=== PATIENT | female | born 1940 | race Caucasian/White ===

== ENCOUNTER 2017-12-06 20:31 | Emergency (ER) | payer OTHER, SELFPAY ==
[2017-12-06 20:36] VITALS: BP 128/75; PULSE 74; RESP 20; TEMP 36.6; O2SAT 94; BMI 23.3
--- NOTE | 2017-12-06 20:47 | DI.RAD.S_ITS ---
PROCEDURE: XR KNEE RT 3V INDICATIONS: fall TECHNIQUE: 3 views of the knee were acquired. COMPARISON: None. FINDINGS: Bones: There is a comminuted patellar fracture. No other fracture or dislocation. Soft tissues: There is a small joint effusion incomplete characterized on this crosstable view. IMPRESSION: Displaced patellar fracture and joint effusion. Dictated by: Madeline Markham M.D. on 12/06/2017 at 21:25 Approved by: Madeline Markham M.D. on 12/06/2017 at 21:26
--- NOTE | 2017-12-06 21:04 | ED.LOWEXIN ---
HPI - Extremity Injury (Lower) <MARCUS Higgins - Last Filed: 12/06/17 23:24> General Chief Complaint: Extremity Injury, Lower Stated Complaint: multiple falls, right knee swollen and hurts Time Seen by Provider: 12/06/17 20:58 Source: patient Mode of arrival: wheelchair Limitations: no limitations History of Present Illness HPI Narrative: Patient presents with chief complaint of right knee pain after multiple falls the past 2 days. She had a witnessed fall today outside on concrete where she landed on her right knee cap. She did have an unwitnessed fall yesterday in her apartment. Patient has dementia and lives at [facility], where she has help. She denies hitting her head, neck, back. She denies series pain of her right knee. She does complain of bruising. And pain with ambulation. She denies any chest pain, shortness of breath, numbness, tingling. She does state that she tripped and fell both times. Denies any syncope. Related Data Home Medications Medication Instructions Recorded Confirmed alendronate [Fosamax] 70 mg PO QWEEK #0 05/26/16 citalopram 20 mg PO QDAY #0 05/26/16 magnesium hydroxide [Milk Of 30 ml PO #0 05/26/16 Magnesia Concentrated] multivitamin [Multiple Vitamins] 1 tab PO QDAY #0 05/26/16 simvastatin 20 mg PO QDAY #0 05/26/16 alum-mag hydroxide-simeth [Maalox 30 ml PO PRN PRN #0 08/15/16 Maximum Strength] cyanocobalamin (vitamin B-12) 1,000 mcg PO QDAY #0 08/15/16 folic acid 1 mg PO QDAY #0 08/15/16 memantine 10 mg PO BID #0 08/15/16 Previous Rx's Medication Instructions Recorded azithromycin [Zithromax] 250 - 500 mg PO QDAY #6 tab 08/15/16 Allergies Allergy/AdvReac Type Severity Reaction Status Date / Time atorvastatin [From LIPITOR] Allergy Unknown Verified 12/06/17 20:43 donepezil [DONEPEZIL] Allergy Unknown Verified 12/06/17 20:43 HYDROCHLORIC ACID Allergy Unknown Uncoded 10/14/17 11:55 Review of Systems <MARCUS Higgins - Last Filed: 12/06/17 23:24> Review of Systems GENERAL: Denies chills, fatigue, malaise, fever, sweats. HEENT: Denies sinus pain, ear pain, sore throat, difficulty swallowing, dizziness. RESPIRATORY: Denies dyspnea, cough, wheezing, hemoptysis, sputum. CARDIOVASCULAR: Denies chest pain, palpitations, orthopnea, edema, GASTROINTESTINAL: Denies nausea, vomiting, abdominal pain, diarrhea, constipation, melena. : Denies dysuria, frequency, incontinence, hematuria, urinary retention. MUSCULOSKELETAL: See HPI SKIN: See HPI NEUROLOGIC: Denies weakness, headache, numbness, change in speech, confusion, seizures, incoordination. PSYCHIATRIC: No concerning psychosocial issues. 12 point review of systems is negative except for those stated above Exam <Esperanza Frandy, [employer] - Last Filed: 12/06/17 23:24> Narrative Exam Narrative: GENERAL: This is a well-nourished, well-developed patient, in no distress with friend at bedside HEAD: Atraumatic. Normocephalic. No temporal or scalp tenderness. EYES: Pupils round and reactive. Extraocular motions intact. No scleral icterus. No injection or drainage. Noted to have 3 mm left pupil on 2 mm right pupil, though they are round and reactive bilaterally. ENT: Nose without bleeding, purulent drainage or septal hematoma. Throat without erythema, tonsillar hypertrophy or exudate. Uvula midline. Airway patent. NECK: Trachea midline. No JVD or lymphadenopathy. Supple, nontender, no meningeal signs. CARDIOVASCULAR: Regular rate and rhythm without murmurs, gallops, or rubs. RESPIRATORY: Clear to auscultation. Breath sounds equal bilaterally. No wheezes, rales, or rhonchi. GASTROINTESTINAL: Abdomen soft, non-tender, nondistended. No hepato-splenomegaly, or palpable masses. No guarding. EXTREMITIES: Pain to palpation of right knee especially patellar region. Decreased range of motion is patient has pain on movement. BACK: Nontender without deformity or crepitance. No flank tenderness. NEURO: Alert oriented x2. Patient believes that is 1950. SKIN: Ecchymosis noted right patellar region. Skin is intact. Initial Vital Signs Initial Vital Signs: Vital Signs Temperature 97.8 F 12/06/17 20:36 Pulse Rate 74 06/03/18 20:36 Respiratory Rate 20 12/06/17 20:36 Blood Pressure 128/75 H 12/06/17 20:36 Pulse Oximetry 94 12/06/17 20:36 <Matthew Roberts DO - Last Filed: 12/07/17 04:26> Initial Vital Signs Initial Vital Signs: Vital Signs Temperature 97.8 F 12/06/17 20:36 Pulse Rate 74 12/06/17 20:36 Respiratory Rate 20 12/06/17 20:36 Blood Pressure 128/75 H 12/06/17 20:36 Pulse Oximetry 94 12/06/17 20:36 Procedures <MARCUS Higgins - Last Filed: 12/06/17 23:24> Orthopedic Splinting/Casting Injury #1: Side: right Lower Extremity Injury Location: knee Lower Extremity Immobilizer: knee immobilizer Other Orthopedic Equipment: walker Additional Comments: Pulse motor and sensory intact before and after knee immobilizer application. Course <MARCUS Higgins - Last Filed: 12/06/17 23:24> Hospital Course: Patient presented with chief complaint of knee pain. However given her unequal pupils on exam as well as unwitnessed fall, a head CT was also obtained. I checked on her multiple times throughout her stay. She passed her ambulation trial at the end of her emergency department stay. She denied severe pain throughout. Patient and her prior trade mark attorney did not have any questions or concerns upon discharge. Orders Ordered: ED Orders 12/06/17 20:47 XR knee RT 3V Stat 12/06/17 21:20 CT head/brain wo con Stat Consultations Consultation #1: Dr Moore viewed x-rays and suggested a knee immobilizer. Discussed careful follow-up as well as [facility]. Vital Signs - 8 hr 12/06/17 20:36 12/06/17 22:15 Temperature 97.8 F Pulse Rate 74 82 Respiratory Rate 20 16 Blood Pressure 128/75 H Blood Pressure [Right Arm] 137/85 H Pulse Oximetry 94 97 <Matthew Roberts DO - Last Filed: 12/07/17 04:26> Orders Ordered: ED Orders 12/06/17 20:47 XR knee RT 3V Stat 12/06/17 21:20 CT head/brain wo con Stat Vital Signs - 8 hr 06/03/18 20:36 12/06/17 22:15 Temperature 97.8 F Pulse Rate 74 82 Respiratory Rate 20 16 Blood Pressure 128/75 H Blood Pressure [Right Arm] 137/85 H Pulse Oximetry 94 97 MDM - Extremity Injury (Lower) <MARCUS Higgins - Last Filed: 12/06/17 23:24> Imaging Data right knee: Radiologist's impression: [address] [address] XRay Report Signed Patient: Tabatha Mondragon MR#: [id number] : 1940 Acct:[id number] Age/Sex: 77 / F Date of Service: 12/06/17 Loc: ED Accession Number: [id number] Procedure: XR knee RT 3V Ordering Provider: Matthew Roberts D.O. PROCEDURE: XR KNEE RT 3V INDICATIONS: fall TECHNIQUE: 3 views of the knee were acquired. COMPARISON: None. FINDINGS: Bones: There is a comminuted patellar fracture. No other fracture or dislocation. Soft tissues: There is a small joint effusion incomplete characterized on this crosstable view. IMPRESSION: Displaced patellar fracture and joint effusion. Dictated by: Madeline Markham M.D. on 12/06/2017 at 21:25 Approved by: Madelien Markham M.D. on 12/06/2017 at 21:26 CT scan - head: Radiologist's impression: [address] [address] [address] Scan Report Signed Patient: Tabatha Mondragon MR#: [id number] : 1940 Acct:[id number] Age/Sex: 77 / F Date of Service: 12/06/17 Loc: ED Accession Number: [id number] Procedure: CT head/brain wo con Ordering Provider: Esperanza Wise PROCEDURE: CT HEAD/BRAIN WO CON INDICATIONS: unwitnessed fall, unequal pupils TECHNIQUE: Noncontrast 4.5 mm thick angled axial sections acquired from the foramen magnum to the vertex, with coronal and sagittal reformats. For radiation dose reduction, the following was used: automated exposure control, adjustment of mA and/or kV according to patient size. COMPARISON: [facility], CT, CT BRAIN WO CON, 08/13/2016, 2:38. FINDINGS: Image quality: Excellent. CSF spaces: Basal cisterns are patent. No extra-axial fluid collections. The ventricles are symmetric in size and shape. Brain: No intracranial bleeds or masses. There is marked cerebral volume loss for age, with resultant ventricular and sulcal prominence. There are extensive periventricular and deep white matter chronic small vessel ischemic changes. There is intracranial internal carotid artery atherosclerosis. Skull and face: Calvarium and visualized facial bones appear intact, without suspicious lesions. Sinuses: Visualized sinuses and mastoids are clear. IMPRESSION: 1. No acute intracranial findings. 2. Extensive findings likely associated with chronic microvascular ischemic changes. Dictated by: Madeline Markham M.D. on 12/06/2017 at 21:42 Approved by: Madeline Markham M.D. on 12/06/2017 at 21:44 MDM Narrative Medical decision making narrative: Patient's x-ray was concerning for comminuted patellar fracture on her right side. After discussion with Ortho, it was decided to put her in a knee immobilizer as well as a walker. She has follow-up instructions to follow up with her PCP as well as orthopedics if needed. We discussed monitoring for circulation in her foot. Patient and power of trade mark attorney did not have any questions or concerns upon discharge. Discharge Plan Departure Patient Disposition: Home, Self-Care Clinical Impression: Right patella fracture Discharge Date/Time: 12/06/17 22:36 Interventions: ED Discharge Assessment Last Done: 12/06/17 22:35 Instructions: DI for Patella Fracture, How To Perform RICE (Rest, Ice, Compress, Elevate), How to Prevent Falls, How to Use a Knee Immobilizer Activity Restrictions/Additional Instructions: Unfortunately you broke your right knee cap. I would like you to keep the knee immobilizer on. I would like you to rest, elevate, use [id number] pain medication as needed, use ice. I would like you to monitor for circulation of your foot. I would like you to follow up with her primary care provider and [facility]. I would like you to be careful that you do not fall at home. I given you instructions on reduction of falls at home. Prescriptions: No Action alendronate [Fosamax] 70 MG tablet 70 mg PO QWEEK Qty: 0 RF: 0 multivitamin [Multiple Vitamins] 1 EACH tablet 1 tab PO QDAY Qty: 0 RF: 0 citalopram 20 MG tablet 20 mg PO QDAY Qty: 0 RF: 0 simvastatin 20 MG tablet 20 mg PO QDAY Qty: 0 RF: 0 magnesium hydroxide [Milk Of Magnesia Concentrated] 2,400 MG/10 ML suspension 30 ml PO Qty: 0 RF: 0 cyanocobalamin (vitamin B-12) 1,000 MCG tablet extended release 1,000 mcg PO QDAY Qty: 0 RF: 0 folic acid 1 MG tablet 1 mg PO QDAY Qty: 0 RF: 0 memantine 10 MG tablet 10 mg PO BID Qty: 0 RF: 0 alum-mag hydroxide-simeth [Maalox Maximum Strength] 355 ML suspension 30 ml PO PRN PRNQty: 0 RF: 0 azithromycin [Zithromax] 250 MG tablet 250 - 500 mg PO QDAY Qty: 6 RF: 0 Referrals: [facility] [Provider Group] <Matthew Roberts DO - Last Filed: 12/07/17 04:26> Cosign ED Attending Eldaature Attestation: I was immediately available in the department for consultation. Documentation has been reviewed. I agree with assessment and plan.
--- NOTE | 2017-12-06 21:20 | DI.CT.S_ITS ---
PROCEDURE: CT HEAD/BRAIN WO CON INDICATIONS: unwitnessed fall, unequal pupils TECHNIQUE: Noncontrast 4.5 mm thick angled axial sections acquired from the foramen magnum to the vertex, with coronal and sagittal reformats. For radiation dose reduction, the following was used: automated exposure control, adjustment of mA and/or kV according to patient size. COMPARISON: [facility], CT, CT BRAIN WO CON, 08/13/2016, 2:38. FINDINGS: Image quality: Excellent. CSF spaces: Basal cisterns are patent. No extra-axial fluid collections. The ventricles are symmetric in size and shape. Brain: No intracranial bleeds or masses. There is marked cerebral volume loss for age, with resultant ventricular and sulcal prominence. There are extensive periventricular and deep white matter chronic small vessel ischemic changes. There is intracranial internal carotid artery atherosclerosis. Skull and face: Calvarium and visualized facial bones appear intact, without suspicious lesions. Sinuses: Visualized sinuses and mastoids are clear. IMPRESSION: 1. No acute intracranial findings. 2. Extensive findings likely associated with chronic microvascular ischemic changes. Dictated by: Madeline Markham M.D. on 12/06/2017 at 21:42 Approved by: Madeline Markham M.D. on 12/06/2017 at 21:44
--- NOTE | 2017-12-06 22:10 | PC.NURSE ---
Pt ambulated in hallway with right knee immobilizer and walker with steady gait. Pt states she wants to go home. Frandy helm.
[2017-12-06 22:15] VITALS: BP 137/85; PULSE 82; RESP 16; O2SAT 97
--- NOTE | 2017-12-06 23:24 | ED_ITS ---
HPI - Extremity Injury (Lower) <MARCUS Higgins - Last Filed: 12/06/17 23:24> General Chief Complaint: Extremity Injury, Lower Stated Complaint: multiple falls, right knee swollen and hurts Time Seen by Provider: 12/06/17 20:58 Source: patient Mode of arrival: wheelchair Limitations: no limitations History of Present Illness HPI Narrative: Patient presents with chief complaint of right knee pain after multiple falls the past 2 days. She had a witnessed fall today outside on concrete where she landed on her right knee cap. She did have an unwitnessed fall yesterday in her apartment. Patient has dementia and lives at [facility], where she has help. She denies hitting her head, neck, back. She denies series pain of her right knee. She does complain of bruising. And pain with ambulation. She denies any chest pain, shortness of breath, numbness , tingling. She does state that she tripped and fell both times. Denies any syncope. Related Data Home Medications Medication Instructions Recorded Confirmed alendronate [Fosamax] 70 mg PO QWEEK #0 05/26/16 citalopram 20 mg PO QDAY #0 05/26/16 magnesium hydroxide [Milk Of 30 ml PO #0 05/26/16 Magnesia Concentrated] multivitamin [Multiple Vitamins] 1 tab PO QDAY #0 05/26/16 simvastatin 20 mg PO QDAY #0 05/26/16 alum-mag hydroxide-simeth [Maalox 30 ml PO PRN PRN #0 08/15/16 Maximum Strength] cyanocobalamin (vitamin B-12) 1,000 mcg PO QDAY #0 08/15/16 folic acid 1 mg PO QDAY #0 08/15/16 memantine 10 mg PO BID #0 08/15/16 Previous Rx's Medication Instructions Recorded azithromycin [Zithromax] 250 - 500 mg PO QDAY #6 tab 08/15/16 Allergies Allergy/AdvReac Type Severity Reaction Status Date / Time atorvastatin [From LIPITOR] Allergy Unknown Verified 12/06/17 20:43 donepezil [DONEPEZIL] Allergy Unknown Verified 12/06/17 20:43 HYDROCHLORIC ACID Allergy Unknown Uncoded 10/14/17 11:55 Review of Systems <MARCUS Higgins - Last Filed: 12/06/17 23:24> Review of Systems GENERAL: Denies chills, fatigue, malaise, fever, sweats. HEENT: Denies sinus pain, ear pain, sore throat, difficulty swallowing, dizziness. RESPIRATORY: Denies dyspnea, cough, wheezing, hemoptysis, sputum. CARDIOVASCULAR: Denies chest pain, palpitations, orthopnea, edema, GASTROINTESTINAL: Denies nausea, vomiting, abdominal pain, diarrhea, constipation, melena. : Denies dysuria, frequency, incontinence, hematuria, urinary retention. MUSCULOSKELETAL: See HPI SKIN: See HPI NEUROLOGIC: Denies weakness, headache, numbness, change in speech, confusion, seizures, incoordination. PSYCHIATRIC: No concerning psychosocial issues. 12 point review of systems is negative except for those stated above Exam <Esperanza Frandy, [employer] ANALYST[employer] - Last Filed: 12/06/17 23:24> Narrative Exam Narrative: GENERAL: This is a well-nourished, well-developed patient, in no distress with friend at bedside HEAD: Atraumatic. Normocephalic. No temporal or scalp tenderness. EYES: Pupils round and reactive. Extraocular motions intact. No scleral icterus. No injection or drainage. Noted to have 3 mm left pupil on 2 mm right pupil, though they are round and reactive bilaterally. ENT: Nose without bleeding, purulent drainage or septal hematoma. Throat without erythema, tonsillar hypertrophy or exudate. Uvula midline. Airway patent. NECK: Trachea midline. No JVD or lymphadenopathy. Supple, nontender, no meningeal signs. CARDIOVASCULAR: Regular rate and rhythm without murmurs, gallops, or rubs. RESPIRATORY: Clear to auscultation. Breath sounds equal bilaterally. No wheezes , rales, or rhonchi. GASTROINTESTINAL: Abdomen soft, non-tender, nondistended. No hepato-splenomegaly , or palpable masses. No guarding. EXTREMITIES: Pain to palpation of right knee especially patellar region. Decreased range of motion is patient has pain on movement. BACK: Nontender without deformity or crepitance. No flank tenderness. NEURO: Alert oriented x2. Patient believes that is 1950. SKIN: Ecchymosis noted right patellar region. Skin is intact. Initial Vital Signs Initial Vital Signs: Vital Signs Temperature 97.8 F 12/06/17 20:36 Pulse Rate 74 06/03/18 20:36 Respiratory Rate 20 12/06/17 20:36 Blood Pressure 128/75 H 12/06/17 20:36 Pulse Oximetry 94 12/06/17 20:36 <Matthew Roberts DO - Last Filed: 12/07/17 04:26> Initial Vital Signs Initial Vital Signs: Vital Signs Temperature 97.8 F 12/06/17 20:36 Pulse Rate 74 12/06/17 20:36 Respiratory Rate 20 12/06/17 20:36 Blood Pressure 128/75 H 12/06/17 20:36 Pulse Oximetry 94 12/06/17 20:36 Procedures <MARCUS Higgins - Last Filed: 12/06/17 23:24> Orthopedic Splinting/Casting Injury #1: Side: right Lower Extremity Injury Location: knee Lower Extremity Immobilizer: knee immobilizer Other Orthopedic Equipment: walker Additional Comments: Pulse motor and sensory intact before and after knee immobilizer application. Course <MARCSU Higgins - Last Filed: 12/06/17 23:24> Hospital Course: Patient presented with chief complaint of knee pain. However given her unequal pupils on exam as well as unwitnessed fall, a head CT was also obtained. I checked on her multiple times throughout her stay. She passed her ambulation trial at the end of her emergency department stay. She denied severe pain throughout. Patient and her prior regulatory attorney did not have any questions or concerns upon discharge. Orders Ordered: ED Orders 12/06/17 20:47 XR knee RT 3V Stat 12/06/17 21:20 CT head/brain wo con Stat Consultations Consultation #1: Dr Moore viewed x-rays and suggested a knee immobilizer. Discussed careful follow-up as well as using assisted ambulation at her [facility] home. Vital Signs - 8 hr 12/06/17 20:36 12/06/17 22:15 Temperature 97.8 F Pulse Rate 74 82 Respiratory Rate 20 16 Blood Pressure 128/75 H Blood Pressure [Right Arm] 137/85 H Pulse Oximetry 94 97 <Matthew Roberts DO - Last Filed: 12/07/17 04:26> Orders Ordered: ED Orders 12/06/17 20:47 XR knee RT 3V Stat 12/06/17 21:20 CT head/brain wo con Stat Vital Signs - 8 hr 06/03/18 20:36 12/06/17 22:15 Temperature 97.8 F Pulse Rate 74 82 Respiratory Rate 20 16 Blood Pressure 128/75 H Blood Pressure [Right Arm] 137/85 H Pulse Oximetry 94 97 MDM - Extremity Injury (Lower) <MARCUS Higgins - Last Filed: 12/06/17 23:24> Imaging Data right knee: Radiologist's impression: [address] [address] XRay Report Signed Patient: Tabatha Mondragon MR#: [id number] : 1940 Acct:[id number] Age/Sex: 77 / F Date of Service: 12/06/17 Loc: ED Accession Number: [id number] Procedure: XR knee RT 3V Ordering Provider: Matthew Roberts D.O. PROCEDURE: XR KNEE RT 3V INDICATIONS: fall TECHNIQUE: 3 views of the knee were acquired. COMPARISON: None. FINDINGS: Bones: There is a comminuted patellar fracture. No other fracture or dislocation. Soft tissues: There is a small joint effusion incomplete characterized on this crosstable view. IMPRESSION: Displaced patellar fracture and joint effusion. Dictated by: Madeline Markham M.D. on 12/06/2017 at 21:25 Approved by: Madeline Markham M.D. on 12/06/2017 at 21:26 CT scan - head: Radiologist's impression: [address] [address] [address] Scan Report Signed Patient: Tabatha Mondragon MR#: [id number] : 1940 Acct:[id number] Age/Sex: 77 / F Date of Service: 12/06/17 Loc: ED Accession Number: [id number] Procedure: CT head/brain wo con Ordering Provider: Esperanza Wise PROCEDURE: CT HEAD/BRAIN WO CON INDICATIONS: unwitnessed fall, unequal pupils TECHNIQUE: Noncontrast 4.5 mm thick angled axial sections acquired from the foramen magnum to the vertex, with coronal and sagittal reformats. For radiation dose reduction, the following was used: automated exposure control, adjustment of mA and/or kV according to patient size. COMPARISON: [facility], CT, CT BRAIN WO CON, 08/13/2016, 2:38. FINDINGS: Image quality: Excellent. CSF spaces: Basal cisterns are patent. No extra-axial fluid collections. The ventricles are symmetric in size and shape. Brain: No intracranial bleeds or masses. There is marked cerebral volume loss for age, with resultant ventricular and sulcal prominence. There are extensive periventricular and deep white matter chronic small vessel ischemic changes. There is intracranial internal carotid artery atherosclerosis. Skull and face: Calvarium and visualized facial bones appear intact, without suspicious lesions. Sinuses: Visualized sinuses and mastoids are clear. IMPRESSION: 1. No acute intracranial findings. 2. Extensive findings likely associated with chronic microvascular ischemic changes. Dictated by: Madeline Markham M.D. on 12/06/2017 at 21:42 Approved by: Madeline Markham M.D. on 12/06/2017 at 21:44 MDM Narrative Medical decision making narrative: Patient's x-ray was concerning for comminuted patellar fracture on her right side. After discussion with Ortho, it was decided to put her in a knee immobilizer as well as a walker. She has follow-up instructions to follow up with her PCP as well as orthopedics if needed. We discussed monitoring for circulation in her foot. Patient and power of regulatory attorney did not have any questions or concerns upon discharge. Discharge Plan Departure Patient Disposition: Home, Self-Care Clinical Impression: Right patella fracture Discharge Date/Time: 12/06/17 22:36 Interventions: ED Discharge Assessment Last Done: 12/06/17 22:35 Instructions: DI for Patella Fracture, How To Perform RICE (Rest, Ice, Compress , Elevate), How to Prevent Falls, How to Use a Knee Immobilizer Activity Restrictions/Additional Instructions: Unfortunately you broke your right knee cap. I would like you to keep the knee immobilizer on. I would like you to rest, elevate, use [id number] pain medication as needed, use ice. I would like you to monitor for circulation of your foot. I would like you to follow up with her primary care provider and [facility]. I would like you to be careful that you do not fall at home. I given you instructions on reduction of falls at home. Prescriptions: No Action alendronate [Fosamax] 70 MG tablet 70 mg PO QWEEK Qty: 0 RF: 0 multivitamin [Multiple Vitamins] 1 EACH tablet 1 tab PO QDAY Qty: 0 RF: 0 citalopram 20 MG tablet 20 mg PO QDAY Qty: 0 RF: 0 simvastatin 20 MG tablet 20 mg PO QDAY Qty: 0 RF: 0 magnesium hydroxide [Milk Of Magnesia Concentrated] 2,400 MG/10 ML suspension 30 ml PO Qty: 0 RF: 0 cyanocobalamin (vitamin B-12) 1,000 MCG tablet extended release 1,000 mcg PO QDAY Qty: 0 RF: 0 folic acid 1 MG tablet 1 mg PO QDAY Qty: 0 RF: 0 memantine 10 MG tablet 10 mg PO BID Qty: 0 RF: 0 alum-mag hydroxide-simeth [Maalox Maximum Strength] 355 ML suspension 30 ml PO PRN PRNQty: 0 RF: 0 azithromycin [Zithromax] 250 MG tablet 250 - 500 mg PO QDAY Qty: 6 RF: 0 Referrals: [facility] [Provider Group] <Matthew Roberts DO - Last Filed: 12/07/17 04:26> Cosign ED Attending Eldaature Attestation: I was immediately available in the department for consultation. Documentation has been reviewed. I agree with assessment and plan.
== END 2017-12-06 22:36 | disposition home or self-care (01) ==
PROVIDERS: Emergency Provider Nurse Practitioner Family
DX: S82.001A Unspecified fracture of right patella, initial encounter for closed fracture (principal); W19.XXXA Unspecified fall, initial encounter
CPT/HCPCS: 70450; 73562; 99283; 99284

== ENCOUNTER → 2020-09-20 19:08 | Outpatient (ROUT) | payer OTHER, SELFPAY ==
[2020-09-20 19:28] LABS: Alanine Aminotransferase 13 IU/L (<35); Albumin Globulin Ratio 1.7 (1.0-2.8); Alkaline Phosphatase 53 U/L (38-126); Aspartate Aminotransferase 25 IU/L (14-36); BUN Creatinine Ratio 13.9 (6-22); Bilirubin Total 0.3 mg/dL (0.2-1.3); Blood Urea Nitrogen 17 mg/dL (7-17); Calcium 9.3 mg/dL (8.4-10.2); Carbon Dioxide 26 mmol/L (22-32); Chloride 107 mmol/L (98-107); Cholesterol 148 mg/dL (140-199); Estimated Glomerular Filt Rate 42.2 mL/min (>60); Globulin 2.3 g/dL (1.7-4.1); Glucose 88 mg/dL (80-110); HDL Cholesterol 57 mg/dL (40-60); HEMOLYSIS < 15 (0-50); LDL Cholesterol Calculated 51 mg/dL (<100); Potassium 4.2 mmol/L (3.4-5.1); Sodium 141 mmol/L (137-145); Total Protein 6.3 g/dL (6.3-8.2); Triglycerides 201 mg/dL (35-150)
== END ==
PROVIDERS: Visit Provider Internal Medicine
DX: E78.2 Mixed hyperlipidemia (principal); I10 Essential (primary) hypertension
CPT/HCPCS: 80053; 80061

== ENCOUNTER 2020-12-23 06:56 | Observation (INO) | payer OTHER, SELFPAY ==
[2020-12-23] VITALS (10 sets, daily range): BP systolic 103–185; BP diastolic 63–85; PULSE 76–88; RESP 16–18; TEMP 36.6–36.8; O2SAT 94–98; BMI 21.6
--- NOTE | 2020-12-23 07:08 | ED.LOWEXIN ---
HPI - Extremity Injury (Lower) General Chief Complaint: Extremity Injury, Lower Stated Complaint: GLF Time Seen by Provider: 12/23/20 07:07 Source: patient and EMS Mode of arrival: EMS Limitations: no limitations History of Present Illness HPI Narrative: This is an 80-year-old female who comes from a care facility with ground level fall. Unclear if patient has dementia but does have some allergies to medications which accept this such as donepezil. Patient can tell me she fell today. She is unable to tell me how she fell. Unclear if this was a witnessed fall. Patient states she was outside. He EMS states she was inside the facility she lives in. Patient cannot tell me if she tripped or if there was another cause. She can tell me that she has pain in her right lower extremity just below the knee. She denies pain elsewhere. Patient denies any headache, neck pain, chest pain or shortness of breath. No nausea or vomiting. She denies any other GI or urinary symptoms. She denies any tingling or numbness. Patient is unable to tell his she takes any medications or any past medical history. She appears to be medications for osteoporosis, dementia a dyslipidemia. Patient is unable to tell me any surgical history. She is unable to tell me if she is allergic to any medications but noted atorvastatin, donepezil and hydrochloric acid in her allergy list. Patient is somewhat frustrated that she is being worked but has been redirectable. Related Data Home Medications Medication Instructions Recorded Confirmed citalopram 20 mg PO QDAY #0 05/26/16 12/23/20 multivitamin [Multiple Vitamins] 1 tab PO QDAY #0 05/26/16 12/23/20 alum-mag hydroxide-simeth [Maalox 30 ml PO PRN PRN #0 08/15/16 12/23/20 Maximum Strength] cyanocobalamin (vitamin B-12) 1,000 mcg PO QDAY #0 08/15/16 12/23/20 folic acid 400 mcg PO QDAY #0 08/15/16 12/23/20 memantine 10 mg PO BID #0 08/15/16 12/23/20 aspirin 81 mg PO DAILY 12/23/20 12/23/20 magnesium hydroxide [Milk of 400 mg PO DAILY 12/23/20 12/23/20 Magnesia] rosuvastatin 10 mg PO DAILY 12/23/20 12/23/20 Allergies Allergy/AdvReac Type Severity Reaction Status Date / Time atorvastatin [From LIPITOR] Allergy Unknown Verified 12/06/17 20:43 donepezil [DONEPEZIL] Allergy Unknown Verified 12/06/17 20:43 HYDROCHLORIC ACID Allergy Unknown Uncoded 10/14/17 11:55 Review of Systems Review of Systems ROS Unobtainable: All systems reviewed & are unremarkable except as noted in HPI and below Patient History Medical History Dementia High cholesterol Surgical History No significant past surgical history Social History Smoking Status: Current every day smoker alcohol intake: current Smoking Status: Current every day smoker tobacco type: cigarettes alcohol intake frequency: holidays/special occasions only Substance Use Type: does not use Exam Narrative Exam Narrative: GEN: Patient appears in mild distress. Patient is able to tell me her name, she is unable to give me much history otherwise. HEAD: No evidence of trauma, no raccoon/Armstrong sign. NECK: Nontender, painless range of motion, trachea midline Positive Nexus criteria, there is no mid line tenderness, distracting injury, positive for altered mental status-likely baseline dementia, neuro deficit, recent EtOH. EYES: PERRLA, EOMI ENT: External inspection normal, trachea is midline, TM's are normal no hemotypanum, Nares are clear, no septal hematoma, no dental or oral injury, airway is normal and with normal occlusion, No bony tenderness RESP: Chest is nontender and has symmetric movement, no ecchymosis, breath sounds are normal no crackles, wheezes or rales CVS: Heart sounds are normal, no murmur noted, No JVD. ABG/GI: Nontender, soft, normal bowel sounds, no distention, no organomegaly, pelvic rock is negative NEURO: Oriented AOx3, neuro is grossly intact, sensation and motor is normal all 4 extremities moving, cranial nerves II through XII are intact, GCS is 14 PSYCH: Normal mood and affect SKIN: Patient has ecchymosis of the right lower extremity just below the knee being towards tinoco, she also has some abrasion over the lower tinoco towards the foot on the right lower extremity. No lacerations are noted. No ecchymosis noted elsewhere, warm and dry, no crepitus and without decubitus BACK: No CVA tenderness, no vertebral tenderness, no step-off's, no crepitus EXT: Atraumatic except for right lower extremity patient has some bony tenderness below the knee over the fibula and particular mid shaft as well radiating towards foot with palpation. No obvious deformity but there is bruising and abrasion over that area, hips are nontender, no pedal edema, normal color and temperature, normal range of motion of extremities with normal tendon exam-patient does have some increased pain lifting at the right lower extremity, she is able to flex the right hip without issue, 2+ pulses in all four extremities Initial Vital Signs Initial Vital Signs: Vital Signs Temperature 98.2 F 12/23/20 07:02 Pulse Rate 82 12/23/20 07:02 Respiratory Rate 18 12/23/20 07:02 Blood Pressure 185/83 H 12/23/20 07:02 Pulse Oximetry 96 12/23/20 07:02 Scores GCS [place] coma scale eye opening: Spontaneous [place] coma scale verbal response: Confused [place] coma scale motor response: Obey commands [place] coma scale total score: 14 Course Orders Ordered: Acetaminophen (Acetaminophen 325 Mg Tablet) 650 mg PO Q6HR PRN PRN Reason: Fever/Mild Pain (1-3) Acetaminophen (Acetaminophen 325 Mg Tablet) 650 mg PO Q4HR PRN PRN Reason: Fever/Mild Pain (1-3) Hydrocodone Bitart/Acetaminophen (Hydrocodone/Acet 5/325 Tablet) 1 tab PO Q4HR PRN PRN Reason: Pain, Moderate (4-6) Last Admin: 12/23/20 16:18 Dose: 1 tab Documented by: BRE Hydrocodone Bitart/Acetaminophen (Hydrocodone/Acet 5/325 Tablet) 1 tab PO Q6HR PRN PRN Reason: Pain, Moderate (4-6) Al Hydrox/Mg Hydrox/Simethicone (Mag Hydrox/Alum/Simeth 30 Ml Udc) 30 ml PO Q6H PRN PRN Reason: INDIGESTION Aspirin (Aspirin 81 Mg Chew Tab) 81 mg PO DAILY [facility] Atorvastatin Calcium (Atorvastatin 20 Mg Tablet) 20 mg PO DAILY [facility] Citalopram Hydrobromide (Citalopram 10 Mg Tablet) 20 mg PO DAILY [facility] Cyanocobalamin (Cyanocobalamin (Vitamin B-12) 100 Mcg Tablet) 1,000 mcg PO DAILY [facility] Enoxaparin Sodium (Enoxaparin 40 Mg/0.4 Ml Syringe) 40 mg SUBCUT DAILY [facility] Folic Acid (Folic Acid 0.4 Mg Tablet) 0.4 mg PO DAILY [facility] Ibuprofen (Ibuprofen 600 Mg Tablet) 600 mg PO Q6HR PRN PRN Reason: Fever/Mild Pain (1-3) Magnesium Hydroxide (Magnesium Hydroxide 30 Ml Udc) 5 ml PO DAILY [facility] Memantine (Memantine Hcl 5 Mg Tablet) 10 mg PO BID [facility] Multivitamins (Multivitamin 1 Tablet) 1 tab PO DAILY [facility] Naloxone HCl (Naloxone 0.4 Mg/Ml Vial) 0.2 mg IV Q2MIN PRN PRN Reason: Opiate Reversal Discontinued Medications Acetaminophen (Acetaminophen 325 Mg Tablet) 975 mg PO NOW ONE Stop: 12/23/20 07:38 Last Admin: 12/23/20 09:16 Dose: 975 mg Documented by: [email or web address] Consultations Consultation #1: Dr. Sosa with orthopedic surgery, reviewed images. Splint, walker may not need fixation. Can follow up with clinic. May toe touch weight. Time: 11:07 Consultation #2: Dr. Dixon, patient's care facility is refusing to accept her back. They state they do not have the appropriate manpower to assist her. Patient can toe-touch weightbear, verses wheelchair. She has plan for outpatient follow-up with orthopedics and is likely non operative management with no other injuries appreciated and her CT imaging otherwise negative. Vital Signs Vital signs: Vital Signs - 8 hr 12/23/20 12:07 Pulse Rate 79 Blood Pressure 145/75 H Pulse Oximetry 95 MDM - Extremity Injury (Lower) Lab Data Attestation: I reviewed the patient's lab results. Result diagrams: 12/23/20 09:30 12/23/20 09:30 Labs: Lab Results 12/23/20 12/23/20 12/23/20 Range/Units 09:30 09:30 09:30 WBC 9.0 (4.5-11.0) X10^3/uL RBC 4.91 (4.0-5.2) X10^6/uL Hgb 14.6 (12.0-16.0) g/dL Hct 44.2 (36-46) % MCV 90.1 (80-100) fL MCH 29.7 (26-34) PG MCHC 33.0 (30-36) % RDW 13.3 (11.6-14.8) % Plt Count 226 (150-400) X10^3/uL Neut % (Auto) 81.5 H (50-75) % Lymph % (Auto) 12.7 L (25-40) % [place] % (Auto) 4.8 (3-14) % Eos % (Auto) 0.4 L (2-4) % Baso % (Auto) 0.6 (0-2) % Neut # (Auto) 7300 H (9308-5291) /uL Lymph # (Auto) 1100 (9945-5978) /uL [place] # (Auto) 400 (0-900) /uL Eos # (Auto) 0 (0-450) /uL Baso # (Auto) 0 (0-100) /uL PT 11.1 (10.1-12.7) SECONDS INR 1.0 (0.9-1.3) APTT 34 (26.4-36.2) SECONDS Sodium 140 (137-145) mmol/L Potassium 3.9 (3.4-5.1) mmol/L Chloride 103 (98-107) mmol/L Carbon Dioxide 28 (22-32) mmol/L BUN 16 (7-17) mg/dL Creatinine 0.76 (0.52-1.04) mg/dL Estimated GFR > 60.0 (>60) mL/min BUN/Creatinine Ratio 21.1 (6-22) Glucose 117 H (80-110) mg/dL Calcium 9.9 (8.4-10.2) mg/dL Total Bilirubin 0.9 (0.2-1.3) mg/dL AST 32 (14-36) IU/L ALT 18 (<35) IU/L Alkaline Phosphatase 68 (38-126) U/L Total Protein 7.6 (6.3-8.2) g/dL Albumin 4.6 (3.5-5.0) g/dL Globulin 3.0 (1.7-4.1) g/dL Albumin/Globulin Ratio 1.5 (1.0-2.8) Lipase 76 (23-300) U/L ECG Data Attestation: I personally reviewed and interpreted this ECG as follows: Prior ECG tracings: available for review Interpretation: Normal sinus rhythm right bundle branch block. Patient has a rate of 75 WA 120 QRS of 126 and QTC of 466. Patient has prior EKG from 05/26/2016 which appears similar with no new acute ST changes appreciated. MDM Narrative Medical decision making narrative: 1-year-old female who had ground level fall. Unclear exactly what occurred patient has reported history of dementia but cannot tell me any history. Head CT C-spine were included as unable to fully clear her secondary or dementia. Labs are unremarkable. Chest x-ray is negative and her tib-fib is positive for spiral fracture. This was reviewed with Orthopedic surgery patient can toe-touch weightbear as tolerated. Contacted patient's assisted living facility in the state that they do not have an RN available and cannot accept her back at this time is they cannot evaluate her. Spoke with our hospitalist who very kindly accepts her. Discharge Plan Departure Patient Disposition: Admitted as Observation Clinical Impression: Closed tibia fracture Traumatic ecchymosis of right lower leg Qualifiers: Encounter type: initial encounter Qualified Code(s): S80.11XA - Contusion of right lower leg, initial encounter Abrasion of leg, right Qualifiers: Encounter type: initial encounter Qualified Code(s): S80.811A - Abrasion, right lower leg, initial encounter Admit Date/Time: 12/23/20 12:17 Admit Provider: Rika Dixon
--- NOTE | 2020-12-23 07:35 | DI.RAD.S_ITS ---
PROCEDURE: XR TIBIA FUBULA RT 2V INDICATIONS: right leg pain TECHNIQUE: 2 views of the tibia and fibula were acquired. COMPARISON: None. FINDINGS: Bones: Nondisplaced spiral shaft fracture of the tibia which extends from the distal 3rd of the shaft inferiorly. It may not extend to the inferior articular surface. No other fractures or dislocations. No suspicious bony lesions. Soft tissues: No suspicious soft tissue calcifications or masses. IMPRESSION: Nondisplaced spiral fracture of the tibia. Dictated by: Jay Somers M.D. on 12/23/2020 at 9:52 Approved by: Jay Somers M.D. on 12/23/2020 at 9:52
--- NOTE | 2020-12-23 07:36 | DI.RAD.S_ITS ---
PROCEDURE: XR CHEST 1V INDICATIONS: fall TECHNIQUE: One view of the chest was acquired. COMPARISON: [facility], , CHEST 1 VIEW, 05/26/2016, 15:06. FINDINGS: Surgical changes and devices: None. Lungs and pleura: Lungs are clear. No pleural effusions or pneumothorax. Mediastinum: Mediastinal contours appear normal. Heart size is normal. Bones and chest wall: No suspicious bony lesions. Overlying soft tissues appear unremarkable. IMPRESSION: No evidence acute pulmonary process. Dictated by: Jay Somers M.D. on 12/23/2020 at 9:53 Approved by: Jay Somers M.D. on 12/23/2020 at 9:53
--- NOTE | 2020-12-23 07:36 | DI.CT.S_ITS ---
PROCEDURE: CT HEAD/BRAIN WO CON INDICATIONS: fall TECHNIQUE: Noncontrast 4.5 mm thick angled axial sections acquired from the foramen magnum to the vertex, with coronal and sagittal reformats. For radiation dose reduction, the following was used: automated exposure control, adjustment of mA and/or kV according to patient size. COMPARISON: [facility], CT, CT HEAD/BRAIN WO CON, 12/06/2017, 21:18. FINDINGS: Image quality: Excellent. CSF spaces: Basal cisterns are patent. No extra-axial fluid collections. The ventricles are symmetric in size and shape. Brain: No intracranial bleeds or masses. There is severe cerebral volume loss for age, with resultant ventricular and sulcal prominence. There are periventricular and deep white matter chronic small vessel ischemic changes. There is intracranial internal carotid artery atherosclerosis. Skull and face: Calvarium and visualized facial bones appear intact, without suspicious lesions. Sinuses: Visualized sinuses and mastoids are clear. IMPRESSION: 1. Severe volume loss. 2. No evidence acute stroke, hemorrhage, or mass. 3. No evidence significant intracranial sequelae of acute trauma. Dictated by: Jay Somers M.D. on 12/23/2020 at 9:01 Approved by: Jay Somers M.D. on 12/23/2020 at 9:03
--- NOTE | 2020-12-23 07:37 | DI.CT.S_ITS ---
PROCEDURE: CT CERVICAL SPINE WO CON INDICATIONS: fall, unwitness, dementia TECHNIQUE: Noncontrast 3 mm thick sections acquired from the skull base to the T4 level. Sagittal and coronal reformats were then constructed. For radiation dose reduction, the following was used: automated exposure control, adjustment of mA and/or kV according to patient size. COMPARISON: None. FINDINGS: Image quality: Excellent. Bones: No fractures or dislocations. Visualized superior ribs are intact. Severe cervical spondylitic change with multilevel facet arthropathy, multilevel disc height loss, multilevel uncovertebral joint hypertrophy, multilevel foraminal narrowing. Soft tissues: Prevertebral soft tissues are normal in thickness. No paravertebral hematomas. No apical pneumothoraces. IMPRESSION: 1. No evidence acute cervical fracture or dislocation. 2. Cervical spondylosis. Dictated by: Jay Somers M.D. on 12/23/2020 at 8:59 Approved by: Jay Somers M.D. on 12/23/2020 at 9:01
[2020-12-23] MEDS: ACETAMINOPHEN 325 MG TABLET 975 MG PO (09:16)
[2020-12-23 09:38] LABS: Add Manual Diff / Slide Review NO; Basophils Absolute Auto 0 /uL (0-100); Basophils Percent Auto 0.6 % (0-2); Eosinophils Absolute Auto 0 /uL (0-450); Eosinophils Percent Auto 0.4 % (2-4); Hematocrit 44.2 % (36-46); Hemoglobin 14.6 g/dL (12.0-16.0); Lymphocytes Absolute Auto 1100 /uL (1100-4500); Lymphocytes Percent Auto 12.7 % (25-40); Mean Corpuscular Hemoglobin 29.7 PG (26-34); Mean Corpuscular Volume 90.1 fL (80-100); Monocytes Absolute Auto 400 /uL (0-900); Monocytes Percent Auto 4.8 % (3-14); Neutrophils Absolute Auto 7300 /uL (1500-7000); Neutrophils Percent Auto 81.5 % (50-75); Platelet Count 226 X10^3/uL (150-400); Red Blood Cell Count 4.91 X10^6/uL (4.0-5.2); Red Cell Distribution Width 13.3 % (11.6-14.8)
[2020-12-23 09:45] LABS: Prothrombin Time 11.1 SECONDS (10.1-12.7)
[2020-12-23 09:48] LABS: PTT Partial Thromboplastin Tim 34 SECONDS (26.4-36.2)
[2020-12-23 09:51] LABS: Alanine Aminotransferase 18 IU/L (<35); Albumin 4.6 g/dL (3.5-5.0); Albumin Globulin Ratio 1.5 (1.0-2.8); Alkaline Phosphatase 68 U/L (38-126); Aspartate Aminotransferase 32 IU/L (14-36); BUN Creatinine Ratio 21.1 (6-22); Bilirubin Total 0.9 mg/dL (0.2-1.3); Blood Urea Nitrogen 16 mg/dL (7-17); Calcium 9.9 mg/dL (8.4-10.2); Carbon Dioxide 28 mmol/L (22-32); Chloride 103 mmol/L (98-107); Estimated Glomerular Filt Rate > 60.0 mL/min (>60); Glucose 117 mg/dL (80-110); HEMOLYSIS < 15 (0-50); Lipase 76 U/L (23-300); Potassium 3.9 mmol/L (3.4-5.1); Sodium 140 mmol/L (137-145); Total Protein 7.6 g/dL (6.3-8.2)
[2020-12-23 13:19] LABS: COVID19 - ADMIT (NP swab/PCR) Negative (Negative)
--- NOTE | 2020-12-23 14:37 | PC.NURSE ---
Patient alert, oriented to self and place, pleasantly confused. Denies pain. RLE in splint and wrapped, CMS+. PAtients POA Gita at bedside. Alarm on.
[2020-12-23] MEDS: HYDROCODONE/ACET 5/325 TABLET 1 TAB PO ×2 (16:18→22:11)
--- NOTE | 2020-12-23 17:48 | P.HP_ITS ---
History of Present Illness History of Present Illness Date Patient Seen: 12/23/20 Time Patient Seen: 17:48 Chief complaint: GLF Narrative: This is an 80 year old female with Depression, Dementia, Hyperlipidemia and Decreased Mobility who [facility] at [facility]) and now has a spiral fracture of the right Tibia. She uses a wheelchair at baseline but usually stands/walks a few feet for transfers from bed to chair. She is unable to return to her home due to her confusion preventing safe transfers while nonweightbearing so will need to be stabilized with a lower leg cast before discharging to a facility that provide her new higher level of care. She has been seen by orthopedics and Dr. Meg Sosa plans to place a cast that is more stable/tolerable than the current temporary splint that has been placed in the ED. She is quite confused and believes that she still lives at home with her , who actually several years ago. Patient History Medical History Dementia High cholesterol Surgical History No significant past surgical history Family & Social History Social History: Prior Living Arrangements Assisted Living Safety & Behavioral: Feels Safe in Current Yes Environment Been Physically Hurt or No Threatened By a Person Suicidal Ideation Description None Suicide Plan Description No Plan Tobacco & Substance use: Tobacco type cigarettes Smoking Status Current every day smoker alcohol intake current alcohol intake frequency holiday/special occasion Substance Use Type does not use Meds Home Medications and Allergies Home Medications Medication Instructions Recorded Confirmed Type citalopram 20 mg PO QDAY #0 05/26/16 12/23/20 History multivitamin [Multiple Vitamins] 1 tab PO QDAY #0 05/26/16 12/23/20 History alum-mag hydroxide-simeth [Maalox 30 ml PO PRN PRN #0 08/15/16 12/23/20 History Maximum Strength] cyanocobalamin (vitamin B-12) 1,000 mcg PO QDAY #0 08/15/16 12/23/20 History folic acid 400 mcg PO QDAY #0 08/15/16 12/23/20 History memantine 10 mg PO BID #0 08/15/16 12/23/20 History aspirin 81 mg PO DAILY 12/23/20 12/23/20 History magnesium hydroxide [Milk of 400 mg PO DAILY 12/23/20 12/23/20 History Magnesia] rosuvastatin 10 mg PO DAILY 12/23/20 12/23/20 History Allergies Allergy/AdvReac Type Severity Reaction Status Date / Time atorvastatin [From LIPITOR] Allergy Unknown Verified 12/06/17 20:43 donepezil [DONEPEZIL] Allergy Unknown Verified 12/06/17 20:43 HYDROCHLORIC ACID Allergy Unknown Uncoded 10/14/17 11:55 Review of Systems Review of Systems Narrative: Positive for confusion and right leg injury Negative for fevers, chills, sweats, chest pain, shortness of breath, coughing, nausea, vomiting, abdominal pain, dysuria, bleeding, rashes, seizures, headaches, new allergies, difficulty talking. ROS: Yes All systems reviewed with the patient and are negative except as otherwise documented Exam Vital Signs (past 8 hours): - 12/23/20 12:07 12/23/20 13:21 12/23/20 13:22 Temperature Pulse Rate 79 80 Respiratory Rate Blood Pressure 145/75 H 111/80 Pulse Oximetry 95 94 12/23/20 15:20 12/23/20 16:20 Temperature 98 F 98.1 F Pulse Rate 76 84 Respiratory Rate 16 17 Blood Pressure 145/77 H 123/76 Pulse Oximetry 98 96 Oxygen Delivery Method Room Air Oxygen Flow Rate 0 Narrative Exam Narrative: She is pleasant, cooperative and very confused. She is only oriented to her own name. No apparent distress. She is unaware of her injury, could not recall any details about and is somewhat delusional about her current living situation Pupils are equally round reactive to light and accommodation. Extraocular muscle intact Sclerae are pink and nonicteric Throat looks normal No thyromegaly JVD is less than 6 cm No carotid bruits are heard Heart is regular rate and rhythm without murmur Lungs are clear to auscultation bilaterally Abdomen is soft, bowel sounds positive, nontender, no organomegaly Extremities have no ankle edema, she is wearing a splint on the right lower leg. I do not find any areas of tenderness along the anterior tinoco. She is able to move her toes bilaterally. Skin has no rash Neurological exam The patient is oriented only to her name and is delusional. She is very pleasant and cooperative Reflexes are normal There is no tremor Cranial nerves 2-12 test intact Motor function is 3/5 throughout Objective Labs Result Diagrams: 12/23/20 09:30 12/23/20 09:30 Labs: Laboratory Results - last 24 hr 12/23/20 12/23/20 12/23/20 09:30 09:30 09:30 WBC 9.0 RBC 4.91 Hgb 14.6 Hct 44.2 MCV 90.1 MCH 29.7 MCHC 33.0 RDW 13.3 Plt Count 226 Neut % (Auto) 81.5 H Lymph % (Auto) 12.7 L [place] % (Auto) 4.8 Eos % (Auto) 0.4 L Baso % (Auto) 0.6 Neut # (Auto) 7300 H Lymph # (Auto) 1100 [place] # (Auto) 400 Eos # (Auto) 0 Baso # (Auto) 0 PT 11.1 INR 1.0 APTT 34 Sodium 140 Potassium 3.9 Chloride 103 Carbon Dioxide 28 BUN 16 Creatinine 0.76 Estimated GFR > 60.0 BUN/Creatinine Ratio 21.1 Glucose 117 H Calcium 9.9 Total Bilirubin 0.9 AST 32 ALT 18 Alkaline Phosphatase 68 Total Protein 7.6 Albumin 4.6 Globulin 3.0 Albumin/Globulin Ratio 1.5 Lipase 76 SARS-CoV-2 (PCR) 12/23/20 12:20 WBC RBC Hgb Hct MCV MCH MCHC RDW Plt Count Neut % (Auto) Lymph % (Auto) [place] % (Auto) Eos % (Auto) Baso % (Auto) Neut # (Auto) Lymph # (Auto) [place] # (Auto) Eos # (Auto) Baso # (Auto) PT INR APTT Sodium Potassium Chloride Carbon Dioxide BUN Creatinine Estimated GFR BUN/Creatinine Ratio Glucose Calcium Total Bilirubin AST ALT Alkaline Phosphatase Total Protein Albumin Globulin Albumin/Globulin Ratio Lipase SARS-CoV-2 (PCR) Negative Assessment & Plan Assessment & Plan narrative: This is an 80 year old female with Depression, Dementia, Hyperlipidemia and Decreased Mobility who fell at her [facility]) and now has a spiral fracture of the right Tibia. Right tibial spiral fracture, present on admission. Active. -mechanism of fall is not clear. The patient says she fell on the sidewalk at the [facility](she has dementia). The paramedics who picked her up described that she had fallen inside the building. -appreciate orthopedic consultation. Dr. Meg Sosa will be applying a more functional/protective cast at bedside tomorrow. She is nonweightbearing for now. -Tylenol and hydrocodone for pain -the patient is not likely to be able to return to the assisted living facility given her nonweightbearing status and need for assistance with her significant dementia. director of convention services will be seeing her and discharge planning will assess for half-way facility level care. Dementia, present on admission. Active. 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 Listed allergy to donepezil. Hyperlipidemia, present on admission. Chronic. -continue rosuvastatin Backup decision maker is her daughter Vivian Bowen a Lovenox for DVT prevention. Quality VTE Deep Vein Thrombosis/Pulmonary Embolism Present on Admission: No
--- NOTE | 2020-12-23 18:17 | PM.HP.1 ---
History of Present Illness History of Present Illness Date Patient Seen: 12/23/20 Time Patient Seen: 16:18 Date of Onset of Symptoms: 12/23/20 Chief complaint: GLF Narrative: This 80-year-old female who lives at [facility]. She fell today and noted right ankle pain. She normally transfers independently to a wheelchair but ambulates predominantly with a wheelchair. She has a remote history of a knee fracture and a hip fracture. Her supportive daughter is at bedside. Patient History Medical History Dementia High cholesterol Surgical History No significant past surgical history Family & Social History Social History: Prior Living Arrangements Assisted Living Safety & Behavioral: Feels Safe in Current Yes Environment Been Physically Hurt or No Threatened By a Person Suicidal Ideation Description None Suicide Plan Description No Plan Tobacco & Substance use: Tobacco type cigarettes Smoking Status Current every day smoker alcohol intake current alcohol intake frequency holiday/special occasion Substance Use Type does not use Meds Home Medications and Allergies Home Medications Medication Instructions Recorded Confirmed Type citalopram 20 mg PO QDAY #0 05/26/16 12/23/20 History multivitamin [Multiple Vitamins] 1 tab PO QDAY #0 05/26/16 12/23/20 History alum-mag hydroxide-simeth [Maalox 30 ml PO PRN PRN #0 08/15/16 12/23/20 History Maximum Strength] cyanocobalamin (vitamin B-12) 1,000 mcg PO QDAY #0 08/15/16 12/23/20 History folic acid 400 mcg PO QDAY #0 08/15/16 12/23/20 History memantine 10 mg PO BID #0 08/15/16 12/23/20 History aspirin 81 mg PO DAILY 12/23/20 12/23/20 History magnesium hydroxide [Milk of 400 mg PO DAILY 12/23/20 12/23/20 History Magnesia] rosuvastatin 10 mg PO DAILY 12/23/20 12/23/20 History Allergies Allergy/AdvReac Type Severity Reaction Status Date / Time atorvastatin [From LIPITOR] Allergy Unknown Verified 12/06/17 20:43 donepezil [DONEPEZIL] Allergy Unknown Verified 12/06/17 20:43 HYDROCHLORIC ACID Allergy Unknown Uncoded 04/11/18 11:55 Review of Systems Review of Systems Narrative: Denies fevers or chills, was not lightheaded prior to her fall, notes that she is otherwise healthy and really think she has no problems. There is a known history of significant dementia. Exam Vital Signs (past 8 hours): - 12/23/20 12:07 12/23/20 13:21 12/23/20 13:22 Temperature Pulse Rate 79 80 Respiratory Rate Blood Pressure 145/75 H 111/80 Pulse Oximetry 95 94 12/23/20 15:20 12/23/20 16:20 Temperature 98 F 98.1 F Pulse Rate 76 84 Respiratory Rate 16 17 Blood Pressure 145/77 H 123/76 Pulse Oximetry 98 96 Oxygen Delivery Method Room Air Oxygen Flow Rate 0 Narrative Exam Narrative: HEENT is benign, she is alert she denies having medical problems and has some mild confusion which is their baseline she does recognize her daughter and says her name is button, lungs are clear, cor regular rate and rhythm, abdomen soft and benign, the right lower extremity has tenderness to palpation over the tibia, there is no gross deformity, she has some numbness in bilateral lower extremities Objective Labs Result Diagrams: 12/23/20 09:30 12/23/20 09:30 Labs: Laboratory Results - last 24 hr 12/23/20 12/23/20 12/23/20 09:30 09:30 09:30 WBC 9.0 RBC 4.91 Hgb 14.6 Hct 44.2 MCV 90.1 MCH 29.7 MCHC 33.0 RDW 13.3 Plt Count 226 Neut % (Auto) 81.5 H Lymph % (Auto) 12.7 L [place] % (Auto) 4.8 Eos % (Auto) 0.4 L Baso % (Auto) 0.6 Neut # (Auto) 7300 H Lymph # (Auto) 1100 [place] # (Auto) 400 Eos # (Auto) 0 Baso # (Auto) 0 PT 11.1 INR 1.0 APTT 34 Sodium 140 Potassium 3.9 Chloride 103 Carbon Dioxide 28 BUN 16 Creatinine 0.76 Estimated GFR > 60.0 BUN/Creatinine Ratio 21.1 Glucose 117 H Calcium 9.9 Total Bilirubin 0.9 AST 32 ALT 18 Alkaline Phosphatase 68 Total Protein 7.6 Albumin 4.6 Globulin 3.0 Albumin/Globulin Ratio 1.5 Lipase 76 SARS-CoV-2 (PCR) 12/23/20 12:20 WBC RBC Hgb Hct MCV MCH MCHC RDW Plt Count Neut % (Auto) Lymph % (Auto) [place] % (Auto) Eos % (Auto) Baso % (Auto) Neut # (Auto) Lymph # (Auto) [place] # (Auto) Eos # (Auto) Baso # (Auto) PT INR APTT Sodium Potassium Chloride Carbon Dioxide BUN Creatinine Estimated GFR BUN/Creatinine Ratio Glucose Calcium Total Bilirubin AST ALT Alkaline Phosphatase Total Protein Albumin Globulin Albumin/Globulin Ratio Lipase SARS-CoV-2 (PCR) Negative X-rays show right distal tib-fib fracture which is nondisplaced but somewhat comminuted Assessment & Plan Assessment & Plan narrative: Right tib-fib fracture plan is for close management. It is comminuted but not significantly displaced. I will plan to put her in cast tomorrow. She does have problems with her memory and dementia and will try and protect her as much as possible SI think she may have problems understanding limiting her weight-bearing on the right lower extremity. Diagnosis and treatment plan discussed with her and her daughter. Quality VTE Deep Vein Thrombosis/Pulmonary Embolism Present on Admission: No
[2020-12-23] MEDS: MEMANTINE HCL 5 MG TABLET 10 MG PO (21:39)
[2020-12-24 00:20] VITALS: BP 141/74; PULSE 82; RESP 13; TEMP 36.7; O2SAT 93
--- NOTE | 2020-12-24 02:37 | PC.NURSE ---
patient is alert but oriented only to self and birthdate. Has been intermittently impulsive setting bed alarm off and also pulling billy wrap off leg. Breath sounds diminished but CTA with RA sat of 93%. HRR w/BP of 141/74. Denies nausea. BT present and abdomen is soft. Has been using bedpan but also sometimes incontinent of urine so is wearing a brief. Is able to move herself in bed. Currently on bedrest as is NWB on right leg. Splint to right leg held in place with billy wrap; CMS is intact. Denied pain when assessment done. SCD not on at present time as patient not leaving it on. Fall risk score is high and bed alarm is activated.
[2020-12-24] MEDS: HYDROCODONE/ACET 5/325 TABLET 1 TAB PO ×3 (04:01→16:42)
[2020-12-24 04:15] VITALS: BP 137/78; PULSE 81; RESP 18; TEMP 36.6; O2SAT 92
--- NOTE | 2020-12-24 07:38 | P.PN_ITS ---
Subjective Subjective Date Patient Seen: 12/24/20 Time Patient Seen: 07:38 Interval history: Patient states she is doing well overall and is in minimal discomfort at rest. At this time she denies fever, chills, nausea, chest pain, shortness of breath, or urinary retention. Patient states that she does not remember experiencing a fall yesterday. She specifically denies pain in the right lower extremity. Exam Vital Signs (past 8 hours): - 12/24/20 00:20 12/24/20 04:15 Temperature 98.0 F 97.9 F Pulse Rate 82 81 Respiratory Rate 13 18 Blood Pressure 141/74 H 137/78 Pulse Oximetry 93 92 Oxygen Delivery Method Room Air Oxygen Flow Rate 0 Narrative Exam Narrative: 80-year-old female. Patient is resting comfortably in bed, is in no acute distress, is alert and oriented x3. Skin is warm, dry, and pink. Right lower extremity is covered in Emre bandage and cast. Good sensation appreciated throughout the bilateral lower extremities to light touch. Gross motor function intact. Good capillary refill. Const General: cooperative, healthy appearing and comfortable Resp Effort & Inspection: normal respiratory effort and able to speak in complete sentences Skin General: no rashes or lesions noted Objective Labs Result Diagrams: 12/24/20 05:30 12/23/20 09:30 Labs: Laboratory Results - last 24 hr 12/23/20 12/23/20 12/23/20 09:30 09:30 09:30 WBC 9.0 RBC 4.91 Hgb 14.6 Hct 44.2 MCV 90.1 MCH 29.7 MCHC 33.0 RDW 13.3 Plt Count 226 Neut % (Auto) 81.5 H Lymph % (Auto) 12.7 L [place] % (Auto) 4.8 Eos % (Auto) 0.4 L Baso % (Auto) 0.6 Neut # (Auto) 7300 H Lymph # (Auto) 1100 [place] # (Auto) 400 Eos # (Auto) 0 Baso # (Auto) 0 PT 11.1 INR 1.0 APTT 34 Sodium 140 Potassium 3.9 Chloride 103 Carbon Dioxide 28 BUN 16 Creatinine 0.76 Estimated GFR > 60.0 BUN/Creatinine Ratio 21.1 Glucose 117 H Calcium 9.9 Total Bilirubin 0.9 AST 32 ALT 18 Alkaline Phosphatase 68 Total Protein 7.6 Albumin 4.6 Globulin 3.0 Albumin/Globulin Ratio 1.5 Lipase 76 SARS-CoV-2 (PCR) 12/23/20 12/24/20 12:20 05:30 WBC RBC Hgb 13.0 Hct 39.0 MCV MCH MCHC RDW Plt Count Neut % (Auto) Lymph % (Auto) [place] % (Auto) Eos % (Auto) Baso % (Auto) Neut # (Auto) Lymph # (Auto) [place] # (Auto) Eos # (Auto) Baso # (Auto) PT INR APTT Sodium Potassium Chloride Carbon Dioxide BUN Creatinine Estimated GFR BUN/Creatinine Ratio Glucose Calcium Total Bilirubin AST ALT Alkaline Phosphatase Total Protein Albumin Globulin Albumin/Globulin Ratio Lipase SARS-CoV-2 (PCR) Negative [facility] Medical History Dementia High cholesterol Surgical History No significant past surgical history Social History Smoking Status: Current every day smoker alcohol intake: current Assessment & Plan Assessment & Plan narrative: Patient is doing well and is stable. Plan for closed management of the tib-fib fracture. Patient needs to be monitored and instructed regularly to maintain toe touch weight bearing status on the RLE due to her dementia. Quality VTE Deep Vein Thrombosis/Pulmonary Embolism Present on Admission: No
[2020-12-24 08:44] VITALS: BP 132/80; PULSE 84; RESP 18; TEMP 37; O2SAT 94
[2020-12-24] MEDS: CITALOPRAM 10 MG TABLET 20 MG PO (09:13)
[2020-12-24] MEDS: ASPIRIN 81 MG CHEW TAB PO (09:13)
[2020-12-24] MEDS: ATORVASTATIN 20 MG TABLET PO (09:16)
[2020-12-24] MEDS: MULTIVITAMIN 1 TABLET 1 TAB PO (09:16)
[2020-12-24] MEDS: FOLIC ACID 0.4 MG TABLET PO (09:17)
[2020-12-24] MEDS: MEMANTINE HCL 5 MG TABLET 10 MG PO ×2 (09:21→20:59)
[2020-12-24 12:00] VITALS: BP 114/63; PULSE 91; RESP 18; TEMP 36.9; O2SAT 95
--- NOTE | 2020-12-24 15:52 | CM.DANOTE ---
Addendum entered by Sheri Sosa 12/24/20 16:23: Correction patient is [employer] Medicare Advantage and can go to SNF if she qualifies. Authorization will need to obtained by accepting SNF. BORIS Original Note: DCP ASSESSMENT: Patient is an 80 year-old female admitted to the hospital after a fall with right tib-fib fracture. PCP is David Angel. Primary Payer: [employer]vantage. Per chart review Patient is pending a cast in the afternoon of 12/24/20. BEULAH Student met with patient at bedside this date she is pleasant and very confused, she is alert and oriented to self. Educated patient on role of social work in discharge planning. Patient is a resident at [facility]. Per chart review at baseline she can independently transfer to manual wheelchair and ambulate a few feet. Spoke with Ann at [facility] they will be able to accept patient if she is no more than an x1 person transfer and can use a call light. Patient is scheduled to have a cast placed on right leg, and has weight bearing precautions. Physical therapy consult placed. PLAN: D/C plan is return to [facility] vs another placement. Will follow-up with Radha Oliveira after physical therapy evaluation. Patient is currently OBS status and would need to pay privately for room and board at SNF. BEULAH Webster COTA/L Discharge Planning/Care Management CM Discharge Assessment Start: 12/24/20 12:22 Freq: Status: Active Protocol: Document 12/24/20 12:22 AL (Rec: 12/24/20 12:28 AL [id number]) Discharge Planning Assessment Assigned Fruit Dumper BEULAH Johnson Student Advance Directives? No History Provided By Friend Has Patient been admitted in last 30 Yes days? Comment 12/06/20 in ED for Multiple falls Prior Living Arrangements Assisted Living Comment [facility] Household Members none Type of transporation used prior to Relies on Others admit Facility Name Admitted From: [facility] Willing to Return to Facility? No Independent with ADL's Yes Is patient alert and oriented? No: Oreinted to self only Caregiver for Another No Whiteboard Updated in Patient Room with Yes name and ext. # of Fruit Dumper Review Status In Process
[2020-12-24 16:00] VITALS: BP 124/72; PULSE 90; RESP 22; TEMP 36.7; O2SAT 92
--- NOTE | 2020-12-24 16:39 | DI.RAD.S_ITS ---
PROCEDURE: XR TIBIA FUBULA RT 2V INDICATIONS: Trauma/fall TECHNIQUE: 2 views of the tibia and fibula were acquired. COMPARISON: [facility], CR, XR TIBIA FIBULA RT 2V, 12/23/2020, 7:51. FINDINGS: Bones: There is interval cast placement over right lower leg. Oblique fracture through distal tibial shaft is again seen. Alignment of right lower leg is anatomic. No new fracture or dislocation. Soft tissues: No suspicious soft tissue calcifications or masses. IMPRESSION: Stable nondisplaced oblique fracture through distal tibial shaft with interval cast placement. Dictated by: Hussein Rand M.D. on 12/24/2020 at 17:13 Approved by: Hussein Rand M.D. on 12/24/2020 at 17:14
--- NOTE | 2020-12-24 18:01 | PC.NURSE ---
Patient was startled earlier and hit her hand on her tray table, she has a small skin tear. It was covered with an allevyn dressing. Patient has no complaints about pain on hand. Patient had cast applied this shift, CMS intact, no signs of swelling or discomfort. Patient had some discomfort with her RLE after cast placement, 5/325 [place] given per EMAR. Patient states pain relief with Char[place].
[2020-12-24 20:00] VITALS: BP 112/57; PULSE 89; RESP 20; TEMP 36.6; O2SAT 94
[2020-12-25 01:05] VITALS: BP 120/59; PULSE 84; RESP 18; TEMP 36.4; O2SAT 93
[2020-12-25 04:57] VITALS: BP 134/79; PULSE 86; RESP 18; TEMP 36.3; O2SAT 93
[2020-12-25 09:00] VITALS: BP 127/71; PULSE 86; RESP 18; TEMP 36.1; O2SAT 92
[2020-12-25] MEDS: CITALOPRAM 10 MG TABLET 20 MG PO (09:35)
[2020-12-25] MEDS: CYANOCOBALAMIN (VITAMIN B-12) 500 MCG TABLET 1000 MCG PO (09:35)
[2020-12-25] MEDS: ATORVASTATIN 20 MG TABLET PO (09:35)
[2020-12-25] MEDS: MULTIVITAMIN 1 TABLET 1 TAB PO (09:35)
[2020-12-25] MEDS: MAGNESIUM HYDROXIDE 30 ML UDC 5 ML PO (09:36)
[2020-12-25] MEDS: MEMANTINE HCL 5 MG TABLET 10 MG PO ×2 (09:36→21:53)
[2020-12-25] MEDS: ASPIRIN 81 MG CHEW TAB PO (09:36)
[2020-12-25] MEDS: ENOXAPARIN 40 MG/0.4 ML SYRINGE SUBCUT (09:37)
[2020-12-25] MEDS: FOLIC ACID 0.4 MG TABLET PO (10:18)
--- NOTE | 2020-12-25 11:46 | PT.IIE ---
Surgical History (Last Reviewed 12/24/20 @ 07:41 by Peng Oneill PA-C) No significant past surgical history Medical History (Last Reviewed 12/24/20 @ 07:41 by Peng Oneill PA-C) Dementia High cholesterol Physical Therapy Inpatient Evaluation/Re-Eval M1 PT/OT-IP Prior Functional Status Start: 12/25/20 11:57 Freq: NEEDED Status: Active Protocol: Document 12/25/20 11:17 DCW (Rec: 12/25/20 12:14 DCW [id number]) Medical Review Prior Functional Status Medical History Reviewed Yes Communication Clear but confused communication Mobility and Gait PLOF main mobility by w/c, able to transfer independently and take a few steps. Activities of Daily Living and IADL's Lives at [facility] in [facility] Social History Household Members none Living Arrangements Assisted Living M2 PT-IP Current Condition Start: 12/25/20 11:57 Freq: NEEDED Status: Active Protocol: Document 12/25/20 11:17 DCW (Rec: 12/25/20 12:14 DC [id number]) Physical Therapy Current Condition Current Condition Evaluation Date 12/25/20 Treatment Diagnosis GLF, Tib-Fib Fracture, Toe Touch WB on R LE /c cast Onset Date 12/23/21 Weight Bearing Status Weight Bearing Status Touch Down Weight Bearing M3 PT-IP Subjective Start: 12/25/20 11:57 Freq: NEEDED Status: Active Protocol: Document 12/25/20 11:17 DCW (Rec: 12/25/20 12:14 DC [id number]) Subjective Physical Therapy Visit Type Type Initial Evaluation Visit Start Time 11:17 Visit Stop Time 11:46 Total Visit Minutes 29 Notes Pt is an 80 year old female two days s/p GLF at her [facility] in [facility]. Pt suffered a tib- fib fracture, and has been casted. Pt current WBing status is toe touch, however pt suffers from dementia and is unable to remember any instructions. Number of MARKER ASSEMBLER Visits 0 Physical Therapy Visit Comments Patient Comments It just hurts a little. Therapy Pain Assessment Location right LE Intensity 5 Scale Used PruittJesus AlbertoAuguste (Faces) M4 PT-IP Mobility and Gait Start: 12/25/20 11:57 Freq: NEEDED Status: Active Protocol: Document 12/25/20 11:17 DCW (Rec: 12/25/20 12:14 [facility] [id number]) PT-Bed Mobility Assessment Rolling Type of Rolling Roll to Left Level of Assist Moderate Assistance,1 Person Assistance Supine to Sit Supine to Sit Moderate Assistance,1 Person Assistance Sit to Supine Sit to Supine Moderate Assistance,1 Person Assistance Scooting Scooting to Edge of Bed Moderate Assistance Scooting Up and Down in Bed Maximum Assistance PT-Transfer Assessment Sit to and From Stand Sit to and from Stand Moderate Assistance,1 Person Assistance Equipment Transfer Assistive Device Bed Rail,Gait Belt,Standard Walker Comments Mobility Comments Pt able to stand bedside Mod Ax1, required constant verbal cues to not put full weight through right LE, only able to stand for 5 seconds before she had to sit due to fatigue and pain. PT-Balance Assessment Sitting Balance and Reactions Static Sitting Balance Ability Fair Dynamic Sitting Balance Ability Poor Standing Balance and Reactions Static Standing Balance Ability Poor M5 PT-IP Objective Assessments Start: 12/25/20 11:57 Freq: NEEDED Status: Active Protocol: Document 12/25/20 11:17 DCW (Rec: 12/25/20 12:14 [facility] [id number]) Orientation Orientation/Cognition Level of Alertness Alert Orientation Name,Birthday Language Function Ability No Deficits Noted Safety Awareness Decreased Safety Awareness Memory Description Short Term Impaired Gross Range of Motion Upper Extremity ROM Assessment Within Functional Limits Lower Extremity ROM Assessment Right Impaired Impairments Limited due to cast Strength Lower Extremity Strength Assessment Right Impaired Hip 2-/5 Knee NT Ankle NT M6 PT-IP Treatment Start: 12/25/20 11:57 Freq: NEEDED Status: Active Protocol: Document 12/25/20 11:17 DCW (Rec: 12/25/20 12:14 [facility] [id number]) Physical Therapy Treatment Exercises Exercises Ankle Pumps,Straight Leg Raises,Supine Hip Abduction M7 PT-IP Assessment and Plan Start: 12/25/20 11:57 Freq: NEEDED Status: Active Protocol: Document 12/25/20 11:17 DCW (Rec: 12/25/20 12:14 DC [id number]) PT Summary Assessment and Plan Potential Rehabilitation Potential Fair Status of Condition at Evaluation Stable Summary Impairments Pain,ROM,Strength,Balance, Cognition,Bed Mobility, Transfers,Gait,Activity Tolerance Assessment Summary Pt presents with tib-fib fracture 2 days s/p GLF. Case is complicated by pt's dementia and inability to remember current WBing status of toe-touch only on right LE. Pt's PLOF involved independent transfers to w/c at her JESSICA, however pt currently requires more assistance than would be available to her at this facility, and pt would likely benefit from discharge to a SNF. Pt required repeated instruction for bed mobility and transfers, and was still attempting to bear full weight through right LE. Goals Bed Mobility Goal Contact Guard Assistance Transfer Goal Minimal Assistance,Front Wheeled Walker Days to Meet Goals 3 Frequency of Treatment Frequency Of Treatment Once a Day Treatment Plan Physical Therapy Treatment Plan Bed Mobility Training,Transfer Training,Therapeutic Exercise ,Balance Retraining,Post Op Education,Discharge Planning Recommendations To Nursing Amount of Assist Needed 2 Person Assist Discharge Recommendations PT Discharge Recommendations SNF Rehab
[2020-12-25] MEDS: ACETAMINOPHEN 325 MG TABLET 975 MG PO ×2 (11:47→19:29)
[2020-12-25 12:00] VITALS: BP 101/60; PULSE 90; RESP 16; TEMP 36.5; O2SAT 94
--- NOTE | 2020-12-25 12:24 | CM.DPNOTE ---
Addendum entered by Elas Elkins 12/25/20 12:36: Faxed clinicals to Naya at [facility] at her request on 12/25/20. Received fax confirmation. Elsa Elkins CM Asst. Original Note: Faxed PT note on 12/25/20 to [facility] and received fax confirmation. Elsa Elkins CM Asst.
--- NOTE | 2020-12-25 15:22 | CM.DPC ---
DCP Continued: Received call this am from [facility] they are not contracted with patient?s health plan. Physical therapy consult was placed early afternoon 12/24/20 and notified physical therapy staff that evaluation was needed to secure authorization for SNF placement, asked if it could be prioritized this am prior to rounds. Physical therapy evaluation completed this afternoon PT Jak notified CM Team eval done and SNF recommended. CM child study team director sent clinicals to [facility] ([facility]). Pending insurance authorization and acceptance from [facility]. PASSR initiated. Spoke with LEONILA Salcido this morning to inform her patient is pending acceptance to [facility]. Gita is in agreement with plan. INSULATION BLANKET MAKER Spoke with Naya this afternoon due to lateness of hour she was unable to obtain authorization. Dr. Julien notified. In addition INSULATION BLANKET MAKER placed call to [facility], [place] to check on whether or not they have contracts with health plan, just in case another option is needed. INSULATION BLANKET MAKER Student called Gita this afternoon there was no answer, left message to inform her Ms. Mondragon will not be transferred today. PLAN: CM Team to continue to follow patient closely, will inform Gita when D/C time and location is confirmed. PASPIA initiated and will follow-up with [facility]. BEULAH Webster, INSULATION BLANKET MAKER Student
[2020-12-25 16:55] VITALS: BP 115/66; PULSE 78; RESP 16; TEMP 36.4; O2SAT 93
--- NOTE | 2020-12-25 18:17 | PM.PN.1 ---
Subjective Subjective Date Patient Seen: 12/25/20 Interval history: Patient is a 80 y/o female who suffered a tib/fib fracture of the left leg. She was casted yesterday. Patient denies any pain. She has been calm and without complaints. Exam Vital Signs (past 8 hours): - 12/25/20 12:00 12/25/20 16:55 Temperature 97.7 F 97.5 F L Pulse Rate 90 78 Respiratory Rate 16 16 Blood Pressure 101/60 115/66 Pulse Oximetry 94 93 Oxygen Delivery Method Room Air Oxygen Flow Rate 0 Narrative Exam Narrative: pleasant female in NAD Lungs: clear to auscultation CV: RRR nl Sl S2 Abdoment soft/ non tender Ext: right leg in cast Objective Labs Result Diagrams: 12/24/20 05:30 12/23/20 09:30 COUNTS INCLUDE 234 BEDS AT THE [facility] Medical History Dementia High cholesterol Surgical History No significant past surgical history Social History household members: none Smoking Status: Current every day smoker alcohol intake: current Assessment & Plan Assessment & Plan narrative: Right tibial spiral fracture, present on admission. Active. -mechanism of fall is not clear. The patient says she fell on the sidewalk at the [facility](she has dementia). The paramedics who picked her up described that she had fallen inside the building. -appreciate orthopedic consultation. Dr. Meg Sosa will be applying a more functional/protective cast at bedside tomorrow. She is nonweightbearing for now. -Tylenol and hydrocodone for pain -the patient is not likely to be able to return to the assisted living facility given her nonweightbearing status and need for assistance with her significant dementia. services rep will be seeing her and discharge planning will assess for [facility] facility level care. -continue pain management await placement Dementia, present on admission. Active. 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 Listed allergy to donepezil. Hyperlipidemia, present on admission. Chronic. -continue rosuvastatin Backup decision maker is her daughter Vivian Bowen a Lovenox for DVT prevention. Quality VTE Deep Vein Thrombosis/Pulmonary Embolism Present on Admission: No
--- NOTE | 2020-12-25 18:30 | PM.PN.1 ---
Subjective Subjective Date Patient Seen: 12/24/20 Interval history: 80/yo female s/p fall here with tib/fib fracture Exam Vital Signs (past 8 hours): - 12/25/20 12:00 12/25/20 16:55 Temperature 97.7 F 97.5 F L Pulse Rate 90 78 Respiratory Rate 16 16 Blood Pressure 101/60 115/66 Pulse Oximetry 94 93 Oxygen Delivery Method Room Air Oxygen Flow Rate 0 Narrative Exam Narrative: pleasant female Lungs: clear to auscultation CV: RRR nl Sl S2 Abd: soft /non tender Ext: leg in brace Objective Labs Result Diagrams: 12/24/20 05:30 12/23/20 09:30 [facility] Medical History Dementia High cholesterol Surgical History No significant past surgical history Social History household members: none Smoking Status: Current every day smoker alcohol intake: current Assessment & Plan Assessment & Plan narrative: Right tibial spiral fracture, present on admission. Active. -mechanism of fall is not clear. The patient says she fell on the sidewalk at the [facility](she has dementia). The paramedics who picked her up described that she had fallen inside the building. -appreciate orthopedic consultation. Dr. Meg Sosa will be applying a more functional/protective cast at bedside tomorrow. She is nonweightbearing for now. -Tylenol and hydrocodone for pain -the patient is not likely to be able to return to the assisted living facility given her nonweightbearing status and need for assistance with her significant dementia. director clinical information services will be seeing her and discharge planning will assess for [facility] facility [facility] care. Awaiting Cast Will need placement Dementia, present on admission. Active. 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 Listed allergy to donepezil. Hyperlipidemia, present on admission. Chronic. -continue rosuvastatin Backup decision maker is her daughter Vivian Bowen a Lovenox for DVT prevention. Quality VTE Deep Vein Thrombosis/Pulmonary Embolism Present on Admission: No
[2020-12-26 00:30] VITALS: BP 136/81; PULSE 76; RESP 16; TEMP 36.3; O2SAT 93
[2020-12-26 04:49] VITALS: BP 134/69; PULSE 73; RESP 18; TEMP 36.3; O2SAT 92
--- NOTE | 2020-12-26 07:29 | PM.PN.1 ---
Subjective Subjective Date Patient Seen: 12/26/20 Time Patient Seen: 07:29 Interval history: Patient states she is doing well overall and is in mild discomfort at rest. Patient denies fever, chills, nausea, chest pain, shortness of breath, or urinary retention. Patient has a difficult time recalling the fall that resulted in her injury. Exam Vital Signs (past 8 hours): - 12/26/20 00:30 12/26/20 04:49 Temperature 97.3 F L 97.3 F L Pulse Rate 76 73 Respiratory Rate 16 18 Blood Pressure 136/81 134/69 Pulse Oximetry 93 92 Oxygen Delivery Method Room Air Oxygen Flow Rate 0 Narrative Exam Narrative: 80-year-old female. Patient is resting comfortably in bed, is in no acute distress, is alert and oriented x3. Skin is warm, dry, and pink. Good sensation appreciated throughout the bilateral lower extremities to light touch. Gross motor function intact in the right toes, capillary refill less than 2 seconds. Mild tenderness to palpation appreciated the right lateral thigh. DP pulses palpated on the left lower extremity. Const General: cooperative, healthy appearing and comfortable Resp Effort & Inspection: normal respiratory effort and able to speak in complete sentences Skin General: no rashes or lesions noted Objective Labs Result Diagrams: 12/24/20 05:30 12/23/20 09:30 [facility] Medical History Dementia High cholesterol Surgical History No significant past surgical history Social History household members: none Smoking Status: Current every day smoker alcohol intake: current Assessment & Plan Assessment & Plan narrative: Patient is doing well and is stable. Is anticipated the patient will be in her cast for 6-8 weeks. Patient will be remained on a limited weight-bearing status for 1 month. Current pain management regimen is to be continued as it is adequately controlling the patient's pain level at this time. Physical therapy will continue to work on mobilizing the patient. Quality VTE Deep Vein Thrombosis/Pulmonary Embolism Present on Admission: No
[2020-12-26 08:02] VITALS: BP 128/74; PULSE 79; RESP 16; TEMP 36; O2SAT 93
[2020-12-26] MEDS: ATORVASTATIN 20 MG TABLET PO (09:08)
[2020-12-26] MEDS: CYANOCOBALAMIN (VITAMIN B-12) 500 MCG TABLET 1000 MCG PO (09:08)
[2020-12-26] MEDS: MULTIVITAMIN 1 TABLET 1 TAB PO (09:08)
[2020-12-26] MEDS: ASPIRIN 81 MG CHEW TAB PO (09:08)
[2020-12-26] MEDS: MEMANTINE HCL 5 MG TABLET 10 MG PO ×2 (09:08→20:17)
[2020-12-26] MEDS: MAGNESIUM HYDROXIDE 30 ML UDC 5 ML PO (09:08)
[2020-12-26] MEDS: CITALOPRAM 10 MG TABLET 20 MG PO (09:08)
[2020-12-26] MEDS: ENOXAPARIN 40 MG/0.4 ML SYRINGE SUBCUT (09:09)
[2020-12-26] MEDS: FOLIC ACID 0.4 MG TABLET PO (09:11)
[2020-12-26] MEDS: IBUPROFEN 600 MG TABLET PO (09:12)
--- NOTE | 2020-12-26 10:08 | PT.IPTN ---
Physical Therapy Treatment Note M2 PT-IP Current Condition Start: 12/25/20 11:57 Freq: NEEDED Status: Active Protocol: Document 12/25/20 11:17 DCW (Rec: 12/25/20 12:14 DCW [id number]) Physical Therapy Current Condition Current Condition Evaluation Date 12/25/20 Treatment Diagnosis GLF, Tib-Fib Fracture, Toe Touch WB on R LE /c cast Onset Date 12/23/21 Weight Bearing Status Weight Bearing Status Touch Down Weight Bearing M3 PT-IP Subjective Start: 12/25/20 11:57 Freq: NEEDED Status: Active Protocol: Document 12/26/20 09:54 SP (Rec: 12/26/20 14:05 SP [id number]) Subjective Physical Therapy Visit Type Type Treatment Note Visit Start Time 09:54 Visit Stop Time 10:08 Total Visit Minutes 14 Number of FOOT SETTER Visits 1 Physical Therapy Visit Comments Patient Comments Pt willing to work with therapy. Therapy Pain Assessment Pain Present Pain Present Pain Reported Location right LE Scale Used no scale quantified Pain Behaviors Facial Grimacing,Holding Area Pain Management Techniques Distraction,Modification of Treatment,Re-positioning, Timing of Activity with Medications M4 PT-IP Mobility and Gait Start: 12/25/20 11:57 Freq: NEEDED Status: Active Protocol: Document 12/26/20 09:54 SP (Rec: 12/26/20 14:05 SP [id number]) PT-Bed Mobility Assessment Supine to Sit Supine to Sit Maximum Assistance,1 Person Assistance Scooting Scooting to Edge of Bed Maximum Assistance PT-Transfer Assessment Sit to and From Stand Sit to and from Stand Moderate Assistance,Maximum Assistance,2 Person Assistance ,Use of Upper Extremities Equipment Transfer Assistive Device Gait Belt,Front Wheeled Walker Orthotic/Prosthetic Devices or Brace: Yes Transfers Transfer Destination Chair,Bedside Commode Transfer Technique Stand Step Pivot Transfer Ability Level of Assist Maximum Assistance,2 Person Assistance,Use of Upper Extremities Comments Mobility Comments Pt was reclined in bed when arrived. Sit>supine, scoot to EOB Max A for RLE to EOB and trunk support while BUE WB on bed self locomotion. Sit>stand and SPT using FWW bed to BSC Max A x1, Mod of 2nd person, pt RLE resting on therapist foot to assess TTWB with fair maintaining precautions max cues, LLE lateral scoot pivot locomotion and BUE heavy WB on FWW, occasional assist for FWW repositioning, verbal and [place] by SCOOP MACHINE OPERATOR cues for reaching back w/ Max A x2 slow descent sit onto BSC. FOOT SETTER elevated support of RLE onto chair. Pt left with SCOOP MACHINE OPERATOR in room, SCOOP MACHINE OPERATOR stated she was ok with pt, pt stated will be a while on commode, call light in reach. SCOOP MACHINE OPERATOR stated will call nurse for assist with transfer when pt completed BSC use. Gait Assessment Comments Gait Comments SPT bed> BSC Max A x2, TTWB on RLE. PT-Balance Assessment Sitting Balance and Reactions Static Sitting Balance Ability Good Dynamic Sitting Balance Ability Fair Standing Balance and Reactions Static Standing Balance Ability Poor Dynamic Standing Balance Ability Poor Device Used FWW, TTWB RLE M5 PT-IP Objective Assessments Start: 12/25/20 11:57 Freq: NEEDED Status: Active Protocol: Document 12/25/20 11:17 DCW (Rec: 12/25/20 12:14 DCW [id number]) Orientation Orientation/Cognition Level of Alertness Alert Orientation Name,Birthday Language Function Ability No Deficits Noted Safety Awareness Decreased Safety Awareness Memory Description Short Term Impaired Gross Range of Motion Upper Extremity ROM Assessment Within Functional Limits Lower Extremity ROM Assessment Right Impaired Impairments Limited due to cast Strength Lower Extremity Strength Assessment Right Impaired Hip 2-/5 Knee NT Ankle NT M6 PT-IP Treatment Start: 12/25/20 11:57 Freq: NEEDED Status: Active Protocol: Document 12/26/20 09:54 SP (Rec: 12/26/20 14:05 SP [id number]) Physical Therapy Treatment Other Treatments Other Treatment Performed Education on TTWB LLE, therapist foot under to assess throughout tx, intermittent cues for no pressure through RLE, difficulty understanding. M7 PT-IP Assessment and Plan Start: 12/25/20 11:57 Freq: NEEDED Status: Active Protocol: Document 12/26/20 09:54 SP (Rec: 12/26/20 14:05 SP [id number]) PT Summary Assessment and Plan Potential Rehabilitation Potential Fair Status of Condition at Evaluation Stable Summary Impairments Pain,ROM,Strength,Balance, Cognition,Bed Mobility, Transfers,Gait,Activity Tolerance Progress Towards Goals Progressing Toward Goals,Slow Progress due to Activity Tolerance,Slow Progress - Other Assessment Summary Pt requires Max A x1 during bed mobility, Max A x2 persons during transfer, max education on maintaining TTWB RLE with difficulty understanding while use of FWW for transfers only. Pt currently requires more assistance than would be available at her prior living facility, and pt would likely benefit from SNF at discharge to improve strength, safety education including TTWB status. Will continue to assess progress. Goals Bed Mobility Goal Contact Guard Assistance Transfer Goal Minimal Assistance,Front Wheeled Walker Days to Meet Goals 3 Frequency of Treatment Frequency Of Treatment Once a Day Treatment Plan Physical Therapy Treatment Plan Bed Mobility Training,Transfer Training,Therapeutic Exercise ,Balance Retraining,Post Op Education,Discharge Planning Other Recommendations and Next Treatment bed mobiltiy, squat pivot Focus transfers. Recommendations To Nursing Amount of Assist Needed 2 Person Assist Discharge Recommendations PT Discharge Recommendations SNF Rehab Transportation Needs at Discharge Wheelchair/Cabulance
[2020-12-26 11:46] VITALS: BP 126/72; PULSE 85; RESP 18; TEMP 37; O2SAT 94
--- NOTE | 2020-12-26 12:36 | CM.DPNOTE ---
Called [facility] number [phone] ([facility]) to find out who would accept pt's. insurance. Helene assisted me and said only [address] [facility]: [facility] & [facility]. [facility] facilities that accept this insurance are: [facility]; [facility]; [facility]; [facility]. The general insurance phone number is [phone]. I will relay this information to Sheri. Elsa Elkins CM Asst.
[2020-12-26 15:15] VITALS: BP 132/65; RESP 18; TEMP 36.3; O2SAT 94
--- NOTE | 2020-12-26 16:41 | CM.DPC ---
DCP/continued: Received notification from Naya at [facility] this AM and she reports that they cannot accommodate patient at this time. Therefore, throughout the day made several calls to find out if bed available and if facility that accepts [facility] out of [place] (very few do)? Spoke with admit at [place] and they report that they believe they are contracted and will review for admit tomorrow. After Ethel reviewed they are agreeable to accept if they can obtain [employer] authorization. They submitted for authorization today. They hope to have by tomorrow. They will call [employer]END[employer] line in AM to check in. Attempted to reach daughter re: above change in d/c plan. Unable to reach but did leave message. Daughter is Gita Salcido ph# [phone]. P: Awaiting to see if Ethel can obtain authorization from [facility]. They have accepted. Other options include checking back in with [facility] because they do have [facility] contract. PASRR completed but will need to be double checked once d/c medications written. BEULAH Webster
--- NOTE | 2020-12-26 17:34 | PM.PN.1 ---
Subjective Subjective Date Patient Seen: 12/26/20 Interval history: 80-year-old female with dementia who sustained a spiral fracture of her right lower extremity. A cast has been placed which she is tolerating well. She denies any pain Exam Vital Signs (past 8 hours): - 12/26/20 11:46 12/26/20 15:15 Temperature 98.6 F 97.3 F L Pulse Rate 85 Respiratory Rate 18 18 Blood Pressure 126/72 132/65 Pulse Oximetry 94 94 Oxygen Delivery Method Room Air Oxygen Flow Rate 0 Narrative Exam Narrative: lungs clear to auscultation cardiac exam: Regular rate and rhythm normal S1-S2 abdomen: Soft and nontender right leg in a cast Objective Labs Result Diagrams: 12/24/20 05:30 12/23/20 09:30 [facility] Medical History Dementia High cholesterol Surgical History No significant past surgical history Social History household members: none Smoking Status: Current every day smoker alcohol intake: current Assessment & Plan Assessment & Plan narrative: Right tibial spiral fracture, present on admission. Active. -mechanism of fall is not clear. The patient says she fell on the sidewalk at the [facility](she has dementia). The paramedics who picked her up described that she had fallen inside the building. -appreciate orthopedic consultation. Dr. Meg Sosa will be applying a more functional/protective cast at bedside tomorrow. She is nonweightbearing for now. -Tylenol and hydrocodone for pain -the patient is not likely to be able to return to the assisted living facility given her nonweightbearing status and need for assistance with her significant dementia. hotel services sales representative will be seeing her and discharge planning will assess for usp facility level care. Awaiting Cast Will need placement patient was unable to return to her adult family home, looking for usp home, hopefully discharge tomorrow Dementia, present on admission. Active. 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 Listed allergy to donepezil. Hyperlipidemia, present on admission. Chronic. -continue rosuvastatin Backup decision maker is her daughter Vivian Bowen a Lovenox for DVT prevention. Quality VTE Deep Vein Thrombosis/Pulmonary Embolism Present on Admission: No
[2020-12-26 21:00] VITALS: BP 130/85; PULSE 82; RESP 16; TEMP 36.5; O2SAT 92
[2020-12-27 00:30] VITALS: BP 151/81; PULSE 83; RESP 19; TEMP 36.3; O2SAT 94
[2020-12-27 04:00] VITALS: BP 138/86; PULSE 83; RESP 18; TEMP 36.4; O2SAT 92
[2020-12-27] MEDS: IBUPROFEN 600 MG TABLET PO ×3 (05:12→22:15)
--- NOTE | 2020-12-27 07:43 | P.PN_ITS ---
Subjective Subjective Date Patient Seen: 12/27/20 Time Patient Seen: 07:44 Interval history: Patient states she is doing well overall and is in minimal discomfort at rest. Patient denies fever, chills, nausea, chest pain, shortness of breath, or urinary retention. Patient is having difficulty recalling the fall that resulted in her injury. When asked the patient states that she fell yesterday, however documentation shows that the fall occurred on 12/23/2020. She reports good sensation throughout the bilateral lower extremities. Exam Vital Signs (past 8 hours): - 12/27/20 00:30 12/27/20 04:00 Temperature 97.4 F L 97.6 F Pulse Rate 83 83 Respiratory Rate 19 18 Blood Pressure 151/81 H 138/86 Pulse Oximetry 94 92 Oxygen Delivery Method Room Air Oxygen Flow Rate 0 Narrative Exam Narrative: 80-year-old female. Patient is resting comfortably in bed, is in no acute distress, and is alert. Skin is warm, dry, and pink. Good sensation appreciated throughout the bilateral lower extremities to light touch. Right leg is in cast. Patient is able to move the toes on the right foot, no tenderness to palpation the right thigh. DP pulse palpated on the left lower extremity. Const General: cooperative, healthy appearing and comfortable Resp Effort & Inspection: normal respiratory effort and able to speak in complete sentences Skin General: no rashes or lesions noted Objective Labs Result Diagrams: 12/24/20 05:30 12/23/20 09:30 [facility] Medical History Dementia High cholesterol Surgical History No significant past surgical history Social History household members: none Smoking Status: Current every day smoker alcohol intake: current Assessment & Plan Assessment & Plan narrative: Patient is doing well and is stable. Patient is to remain limited weight-bearing status. Limited weight-bearing status expected to be maintained for 1 month on the right lower extremity. Anticipated that the patient will be in her cast for 6-8 weeks. Patient is on Lovenox for DVT prophylaxis. Hospitalist assessment: the patient is not likely to be able to return to the assisted living facility given her nonweightbearing status and need for assistance with her significant dementia. financial services intern will be seeing her and discharge planning will assess for retirement facility level care. Quality VTE Deep Vein Thrombosis/Pulmonary Embolism Present on Admission: No
[2020-12-27 08:00] VITALS: BP 150/97; PULSE 91; RESP 17; TEMP 36.4; O2SAT 93
--- NOTE | 2020-12-27 09:53 | CM.DPNOTE ---
Helene from [employer] called [phone], ext. [phone], and said Ethel brito was approved and that she called the facility to let them know. I will relay this info to Lorena. Elsa Elkins CM Asst.
[2020-12-27] MEDS: CYANOCOBALAMIN (VITAMIN B-12) 500 MCG TABLET 1000 MCG PO (10:37)
[2020-12-27] MEDS: ATORVASTATIN 20 MG TABLET PO (10:37)
[2020-12-27] MEDS: CITALOPRAM 10 MG TABLET 20 MG PO (10:37)
[2020-12-27] MEDS: MEMANTINE HCL 5 MG TABLET 10 MG PO ×2 (10:37→20:12)
[2020-12-27] MEDS: MULTIVITAMIN 1 TABLET 1 TAB PO (10:37)
[2020-12-27] MEDS: ASPIRIN 81 MG CHEW TAB PO (10:37)
[2020-12-27] MEDS: FOLIC ACID 0.4 MG TABLET PO (10:38)
[2020-12-27] MEDS: MAGNESIUM HYDROXIDE 30 ML UDC 5 ML PO (10:38)
[2020-12-27] MEDS: ENOXAPARIN 40 MG/0.4 ML SYRINGE SUBCUT (10:38)
--- NOTE | 2020-12-27 11:58 | PT.IPTN ---
Physical Therapy Treatment Note M2 PT-IP Current Condition Start: 12/25/20 11:57 Freq: NEEDED Status: Active Protocol: Document 12/27/20 12:00 MA (Rec: 12/27/20 12:09 MA [id number]) Physical Therapy Current Condition Current Condition Evaluation Date 12/25/20 Treatment Diagnosis GLF, Tib-Fib Fracture, Toe Touch WB on R LE /c cast Onset Date 12/23/21 Weight Bearing Status Weight Bearing Status Touch Down Weight Bearing M3 PT-IP Subjective Start: 12/25/20 11:57 Freq: NEEDED Status: Active Protocol: Document 12/27/20 12:00 MA (Rec: 12/27/20 12:09 MA [id number]) Subjective Physical Therapy Visit Type Type Treatment Note Visit Start Time 11:42 Visit Stop Time 11:58 Total Visit Minutes 16 Number of LAND MANAGER Visits 2 Physical Therapy Visit Comments Patient Comments Pt willing to work with therapy and states she has no pain. Therapy Pain Assessment Pain When Pain Assessed No pain M4 PT-IP Mobility and Gait Start: 12/25/20 11:57 Freq: NEEDED Status: Active Protocol: Document 12/27/20 12:00 MA (Rec: 12/27/20 12:09 MA [id number]) PT-Transfer Assessment Sit to and From Stand Sit to and from Stand Maximum Assistance,2 Person Assistance,Use of Upper Extremities Equipment Transfer Assistive Device Gait Belt,Front Wheeled Walker Orthotic/Prosthetic Devices or Brace: Yes Comments Mobility Comments Pt performed 5x sit<>stand max Ax2. She needs constant verbal cues for hand placement and reminders of TTWB status. She is able to maintain status with cues to stand from LLE. PT-Balance Assessment Sitting Balance and Reactions Static Sitting Balance Ability Good Dynamic Sitting Balance Ability Fair Standing Balance and Reactions Static Standing Balance Ability Poor Dynamic Standing Balance Ability Poor Device Used FWW, TTWB RLE M5 PT-IP Objective Assessments Start: 12/25/20 11:57 Freq: NEEDED Status: Active Protocol: Document 12/25/20 11:17 DCW (Rec: 12/25/20 12:14 DCW [id number]) Orientation Orientation/Cognition Level of Alertness Alert Orientation Name,Birthday Language Function Ability No Deficits Noted Safety Awareness Decreased Safety Awareness Memory Description Short Term Impaired Gross Range of Motion Upper Extremity ROM Assessment Within Functional Limits Lower Extremity ROM Assessment Right Impaired Impairments Limited due to cast Strength Lower Extremity Strength Assessment Right Impaired Hip 2-/5 Knee NT Ankle NT M6 PT-IP Treatment Start: 12/25/20 11:57 Freq: NEEDED Status: Active Protocol: Document 12/27/20 12:00 MA (Rec: 12/27/20 12:09 MA [id number]) Physical Therapy Treatment Other Treatments Other Treatment Performed Pt was educated on TTWB status though she can not repeat status to therapist 1 minute later. M7 PT-IP Assessment and Plan Start: 12/25/20 11:57 Freq: NEEDED Status: Active Protocol: Document 12/27/20 12:00 MA (Rec: 12/27/20 12:09 MA [id number]) PT Summary Assessment and Plan Potential Rehabilitation Potential Fair Status of Condition at Evaluation Stable Summary Impairments Pain,ROM,Strength,Balance, Cognition,Bed Mobility, Transfers,Gait,Activity Tolerance Progress Towards Goals Progressing Toward Goals,Slow Progress due to Activity Tolerance,Slow Progress - Other Assessment Summary Pt requires Max A x2 for sit<> stand with max education on UE placement pushing from chair vs pulling on FWW. She also requires max cues to remember TTWB status on RLE and chooses to only stand on LLE this session with RLE extended in front of pt during sit<>stand. Pt shows decreased ability to balance SL once standing and needs max Ax2 to remain standing. Pt currently requires more assistance than would be available at her prior living facility, and pt would likely benefit from SNF at discharge to improve strength, safety education including TTWB status. Will continue to assess progress. Goals Bed Mobility Goal Contact Guard Assistance Transfer Goal Minimal Assistance,Front Wheeled Walker Days to Meet Goals 3 Frequency of Treatment Frequency Of Treatment Once a Day Treatment Plan Physical Therapy Treatment Plan Bed Mobility Training,Transfer Training,Therapeutic Exercise ,Balance Retraining,Post Op Education,Discharge Planning Other Recommendations and Next Treatment bed mobiltiy, squat pivot Focus transfers. Recommendations To Nursing Amount of Assist Needed 2 Person Assist Discharge Recommendations PT Discharge Recommendations SNF Rehab Transportation Needs at Discharge Wheelchair/Cabulance
[2020-12-27 13:25] VITALS: BP 135/78; PULSE 87; RESP 16; TEMP 36.6; O2SAT 95
--- NOTE | 2020-12-27 13:31 | P.DS_ITS ---
History of Present Illness History of Present Illness Date Patient Seen: 12/27/20 Chief complaint: GLF Narrative: This is an 80 year old female with Depression, Dementia, Hyperlipidemia and Decreased Mobility who fell at her [facility] ([facility]) and now has a spiral fracture of the right Tibia. She uses a wheelchair at baseline but usually stands/walks a few feet for transfers from bed to chair. She is unable to return to her home due to her confusion preventing safe transf ers while nonweightbearing so will need to be stabilized with a lower leg cast before discharging to a facility that provide her new higher level of care. She has been seen by orthopedics and Dr. Meg Sosa plans to place a cast that is more stable/tolerable than the current temporary splint that has been placed in the ED. She is quite confused and believes that she still lives at home with he r , who actually several years ago. Discharge Providers Provider Date of admission: 12/23/20 12:17 Discharge Date: 12/27/20 Consults: 12/23/20 14:01 Consult to Discharge Planning Routine Comment: 12/23/20 18:10 Consult to Orthopedic Surgery Routine Comment: Consulting Provider: Meg Sosa Reason for consultation: tibia fracture 12/24/20 15:21 Consult to Physical Therapy Evaluate & Treat Comment: Physician Instructions: Evaluate and Treat Discharge provider: Bhavna Julien MD Summary Hospital Course Discharge Diagnosis: 1. Right tibial spiral fracture, cast in place 2. Hyperlipidemia 3. Dementia Hospital Course: Patient was admitted to the hospital after a fall and found to have a comminuted nondisplaced right tibial fracture. Patient was placed in a cast which was uneventful. She had no significant agitation or confusion during the hospital stay. However because of the patient's dementia there was concern about her ability to be compliant with mobility and allowing the leg to heal. She lives at an assisted living facility[facility] and they a re unable to accommodate her post procedure. The patient has had an uneventful hospital course. [facility] has agreed to take her and the patient will be discharged there for ongoing care Status at Discharge Cognitive/behavioral status at discharge: confused Functional status at discharge: wheelchair bound Overall status at discharge: patient is progressing back to baseline Time Spent with Patient Time spent: Less than 30 minutes Exam Vital Signs (past 8 hours): - 12/27/20 08:00 12/27/20 13:25 Temperature 97.6 F 98 F Pulse Rate 91 H 87 Respiratory Rate 17 16 Blood Pressure 150/97 H 135/78 Pulse Oximetry 93 95 Oxygen Delivery Method Room Air Oxygen Flow Rate 0 Narrative Exam Narrative: Pleasant elderly female in no obvious distress Lungs: Clear to auscultation Cardiac exam: Regular rate and rhythm normal S1-S2 with a 2/6 systolic ejection murmur Abdomen: Soft nontender Extremities: Right leg in a cast Objective Labs Result Diagrams: 12/24/20 05:30 12/23/20 09:30 [facility] Medical History Dementia High cholesterol Surgical History No significant past surgical history Social History household members: none Smoking Status: Current every day smoker alcohol intake: current Discharge Assessment & Plan Assessment and Plan Assessment: 1. Right spiral fracture of the tibia, comminuted, status post cast in place 2. Hyperlipidemia 3. Dementia Plan of Treatment: Discharged to the [place] for ongoing treatment until she can not return to [facility] Discharge Plan Discharge Plan Patient Disposition: SNF Transfer to: [facility] Transportation: [facility] Consult as needed: Dental, Hearing, Mental health, Podiatry and Vision I certify the postop hospital snf care is medically necessary on a continuing basis for any conditions for which he/ she received care during this hospitalization.: Yes The receiving facility has agreed to accept transfer and provide medical treatment.: Yes Discharge orders & Medications Prescriptions: New hydrocodone-acetaminophen 5-325 mg Tablet 1 tab PO Q4HR PRN (Reason: Pain, Moderate (4-6)) Qty: 10 RF: 0 enoxaparin [Lovenox] 40 mg/0.4 mL Syringe 40 mg SUBCUT DAILY 14 Days RF: 0 Continued multivitamin [Multiple Vitamins] 1 EACH tablet 1 tab PO QDAY Qty: 0 RF: 0 citalopram 20 MG tablet 20 mg PO QDAY Qty: 0 RF: 0 cyanocobalamin (vitamin B-12) 1,000 MCG tablet extended release 1,000 mcg PO QDAY Qty: 0 RF: 0 folic acid 1 MG tablet 400 mcg PO QDAY Qty: 0 RF: 0 memantine 10 MG tablet 10 mg PO BID Qty: 0 RF: 0 alum-mag hydroxide-simeth [Maalox Maximum Strength] 355 ML suspension 30 ml PO PRN PRN (Reason: Indigestion) Qty: 0 RF: 0 rosuvastatin 10 mg Tablet 10 mg PO DAILY RF: 0 aspirin 81 mg Tablet 81 mg PO DAILY RF: 0 magnesium hydroxide [Milk of Magnesia] 400 mg/5 mL Suspension 400 mg PO DAILY RF: 0 Follow up/Referrals: Meg Sosa MD [Physician] - Discharge Health Status Multidrug resistant organism: No MDRO Diet/Activity/Treatments Diet: Low-sodium and Low-cholesterol Liquid consistency: Normal/Thin Food texture: Regular Activity: limited- weight bearing on the right leg Special Rehabilitation Services Reason for rehabilitation: Recovery r/t decondition Visit Report/Discharge Packet Instructions: DI for Fracture Discharge Data Attending Provider: Rika Dixon Gregory Quality VTE Deep Vein Thrombosis/Pulmonary Embolism Present on Admission: No
[2020-12-27 16:00] VITALS: BP 147/85; PULSE 100; RESP 16; TEMP 36.6; O2SAT 97
--- NOTE | 2020-12-27 16:34 | CM.DPNOTE ---
DCP Cont Attempted to coordinate DCP today, spoke w/Lizabeth at [facility] P# [phone] F# [phone]. Auth through [employer] had been secured and patient had a bed available today. Family remains agreeable to plan. Dr Julien updated and the DC med list was completed and signed. Unfortunately, no cabulance transportation was available today. [facility] van was booked and 3 private cabulance transport options had been contacted, no one available. Spoke w/ BRIJESH Villela and Dr Julien, d/t patient being physically incapable of transferring in and out of a private vehicle, and BLS not being an appropriate mode of transport either, DC held until tomorrow 12.28.20 Updated Lizabeth at [facility]. She has scheduled cabulance p/u for Thursday at 1300. Plan: DC to [facility] expected 12.28.20 Will keep family updated JW
--- NOTE | 2020-12-27 17:04 | PC.NURSE ---
Addendum entered by Iveth Toure R.N. 12/27/20 21:17: Pt's cough less frequent. Lungs remain clear to auscultation throughout. No change in neurovascular status. Pt continues to deny pain. Remains globally confused. Needs multiple reminders of location and circumstance. Original Note: Pt awake and alert resting quietly in bed. Cast intact to RLE. Pt admits to pain proximal aspect of cast 01/12, but does not physically assess as a 7/10 to this life insurance underwriter. Pt moves all extremities independently and does move self to edge of bed as if to get out. Staff attend to pt who has had large urinary incontinence. Brief changed x 2 as well as linen change. Ibuprofen administered for pain. Swallow intact. Set up for evening meal. Pt is oriented to person only.
[2020-12-27 20:00] VITALS: BP 138/80; PULSE 88; RESP 16; TEMP 36.1; O2SAT 96
[2020-12-28 00:37] VITALS: BP 138/90; PULSE 84; RESP 16; TEMP 36.1; O2SAT 93
--- NOTE | 2020-12-28 00:56 | PC.NURSE ---
Patient alert at start of shift but now very drowsy. Was able to state name and birthdate but is otherwise disoriented. Breath sounds diminished but CTA with RA sat of 93%. HRR. BT present and abdomen is soft. Has been incontinent of urine. Is able to move self in bed. Gait not assessed but is reported to be working with PT and needing maximum assist/cues for TTWB on right LE. Right LE is in cast; toes are warm to touch with good motion and capillary refill. At shift change stated pain was 2/10 and FLACC now is 0. Wearing calf SCD on left LE. Fall risk score is high and bed alarm is activated. Plan is to DC to SNF later today.
[2020-12-28 08:22] VITALS: BP 131/71; PULSE 84; RESP 14; TEMP 37.1; O2SAT 95
[2020-12-28] MEDS: ASPIRIN 81 MG CHEW TAB PO (08:50)
[2020-12-28] MEDS: MAGNESIUM HYDROXIDE 30 ML UDC 5 ML PO (08:51)
[2020-12-28] MEDS: MEMANTINE HCL 5 MG TABLET 10 MG PO (08:51)
[2020-12-28] MEDS: MULTIVITAMIN 1 TABLET 1 TAB PO (08:51)
[2020-12-28] MEDS: CITALOPRAM 10 MG TABLET 20 MG PO (08:51)
[2020-12-28] MEDS: ATORVASTATIN 20 MG TABLET PO (08:51)
[2020-12-28] MEDS: FOLIC ACID 0.4 MG TABLET PO (08:52)
[2020-12-28] MEDS: ENOXAPARIN 40 MG/0.4 ML SYRINGE SUBCUT (08:52)
[2020-12-28] MEDS: CYANOCOBALAMIN (VITAMIN B-12) 500 MCG TABLET 1000 MCG PO (08:52)
--- NOTE | 2020-12-28 09:57 | CM.DPNOTE ---
Addendum entered by Elsa Elkins 12/28/20 10:30: Faxed PASRR & Prescriptions to [facility] and received fax confirmation. Elsa Elkins CM Asst. Original Note: Faxed order and DC summary to Lizabeth at [facility] at her request, . Fax confirmation received. Elsa Elkins CM Asst.
--- NOTE | 2020-12-28 13:34 | PC.NURSE ---
VSS. A&O x3 but confused and requires redirection. Denies pain. Julian came to pick her up at 1300. Records transferred. Report call given. Off of unit at 1300.
--- NOTE | 2020-12-28 16:44 | CM.DPNOTE ---
DC Note DC to [facility] today. [facility] arranged for p/u at 1300. Dtr Gita made aware and agreeable. RN Araceli aware and plans to call report. SMITHA Hunter assisting w/coordination. Completed and signed med list, RX, PASRR faxed JW
--- NOTE | 2020-12-28 21:13 | PM.PN.1 ---
Subjective Subjective Date Patient Seen: 12/28/20 Time Patient Seen: 09:13 Interval history: Today she has no complaints. Has had discharge orders in since yesterday, but stayed as there was no transportation. Exam Vital Signs (past 8 hours): Oxygen Delivery Method Room Air Oxygen Flow Rate 0 Narrative Exam Narrative: GEN: Pleasant elderly female in no obvious distress Lungs: Clear to auscultation Cardiac exam: Regular rate and rhythm normal S1-S2 with a 2/6 systolic ejection murmur Abdomen: Soft nontender Objective Labs Result Diagrams: 12/24/20 05:30 12/23/20 09:30 [facility] Medical History Dementia High cholesterol Surgical History No significant past surgical history Social History household members: none Smoking Status: Current every day smoker alcohol intake: current Assessment & Plan Assessment & Plan narrative: Right tibial spiral fracture, present on admission. -mechanism of fall is not clear. The patient says she fell on the sidewalk at the [facility](she has dementia). The paramedics who picked her up described that she had fallen inside the building. -appreciate orthopedic consultation. Dr. Meg Sosa applied cast -Tylenol and hydrocodone for pain -the patient is not able to return to the assisted living facility given her nonweightbearing status and need for assistance with her significant dementia. Plan for DC to SNF Dementia, present on admission. Active. 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 Listed allergy to donepezil. Hyperlipidemia, present on admission. Chronic. -continue rosuvastatin Patient DC was not done as there were issues with transportation. Today she had no changes in her medical issues and remained stable for discharge to SNF. Discharge summary accurate and medications up to date. Quality VTE Deep Vein Thrombosis/Pulmonary Embolism Present on Admission: No
== END 2020-12-28 13:00 ==
LOC: ED 12:17 → AC 13:36
PROVIDERS: Nurse Practitioner Family; Admitting Provider Family Medicine; Emergency Provider Emergency Medicine; Referring Provider Emergency Medicine; Visit Provider Family Medicine
DX: S82.244A Nondisplaced spiral fracture of shaft of right tibia, initial encounter for closed fracture (principal); R41.0 Disorientation, unspecified; S80.811A Abrasion, right lower leg, initial encounter; S80.11XA Contusion of right lower leg, initial encounter; W19.XXXA Unspecified fall, initial encounter; Y92.099 Unspecified place in other non-institutional residence as the place of occurrence of the external cause; F03.90 Unspecified dementia, unspecified severity, without behavioral disturbance, psychotic disturbance, mood disturbance, and anxiety; F32.9 Major depressive disorder, single episode, unspecified; E78.5 Hyperlipidemia, unspecified; Z99.3 Dependence on wheelchair; Z20.822 Contact with and (suspected) exposure to COVID-19; F17.210 Nicotine dependence, cigarettes, uncomplicated
CPT/HCPCS: 29505; 36415; 70450; 71045; 72125; 73590; 80053; 83690; 85014; 85018; 85025; 85610; 85730; 87635; 93005; 96372; 97110; 97162; 97530; 99283; 99284; C9803; G0378; J1650

== ENCOUNTER 2021-05-21 16:56 | Inpatient (IN) | payer OTHER, SELFPAY ==
[2020-12-23 13:43] VITALS: BMI 21.6
[2021-05-21] VITALS (10 sets, daily range): BP systolic 113–138; BP diastolic 61–67; PULSE 62–83; RESP 16–18; TEMP 36.4–37.1; O2SAT 95–99; BMI 24.7
--- NOTE | 2021-05-21 16:58 | DI.CT.S_ITS ---
PROCEDURE: CT HEAD/BRAIN WO CON INDICATIONS: Confusion TECHNIQUE: Noncontrast 4.5 mm thick angled axial sections acquired from the foramen magnum to the vertex, with coronal and sagittal reformats. For radiation dose reduction, the following was used: automated exposure control, adjustment of mA and/or kV according to patient size. COMPARISON: [facility], CT, CT HEAD/BRAIN WO CON, 12/06/2017, 21:18. [facility], CT, CT HEAD/BRAIN WO CON, 12/23/2020, 8:06. FINDINGS: Image quality: Excellent. CSF spaces: Basal cisterns are patent. No extra-axial fluid collections. The ventricles are prominent, and are more prominent than would be expected, given the degree of sulcal atrophy. Brain: No intracranial bleeds or masses. There is cerebral volume loss for age, with resultant ventricular and sulcal prominence. There are periventricular and deep white matter chronic small vessel ischemic changes. There is a likely remote left occipital infarct. There is intracranial internal carotid artery atherosclerosis. Skull and face: Calvarium and visualized facial bones appear intact, without suspicious lesions. Sinuses: Visualized sinuses and mastoids are clear. IMPRESSION: No acute abnormality can be seen. Note is made of age-appropriate brain parenchymal volume loss and chronic small vessel ischemic changes. Prominent lateral ventricles. Please consider normal pressure hydrocephalus. 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 Dictated by: Gwyn Borjas M.D. on 05/21/2021 at 16:29 Approved by: Gwyn Borjas M.D. on 05/21/2021 at 16:32
--- NOTE | 2021-05-21 17:31 | ED_ITS ---
HPI - Neuro Symptoms/Deficit General Chief Complaint: Neuro Symptoms/Deficit Stated Complaint: slurred speech Time Seen by Provider: 05/21/21 16:56 Source: EMS Mode of arrival: EMS History of Present Illness HPI Narrative: Patient is an 81-year-old female. Does have a PLOST form at bedtime which does indicate she is a DNR with comfort measures only. She arrived by BLS. Has a history of dementia, reflux disease. Lives in a assisted living facility however does require quite a bit help at baseline per her [id number] who is at bedside. Is initially reported that approximately 5 hours prior to arrival here in the emergency department the patient seem to have a change in mental status. Unsure exactly what has happened is the patient is unable to provide any HPI. The BLS crew that brought her here to the emergency department states that there was potentially some concern about a facial droop but that seems to have resolved. There was also some concern about a urinary tract infection. Unsure as to where this concern came from. Is very difficult to obtain. Triage note states that the patient was alert oriented times to however this was not the presentation that I had on my evaluation. On Anticoagulants: No Related Data Home Medications Medication Instructions Recorded Confirmed citalopram 20 mg tablet 20 mg PO QDAY #0 05/26/16 12/23/20 multivitamin (Multiple Vitamins) 1 tab PO QDAY #0 05/26/16 12/23/20 aluminum-mag hydroxide-simethicone 30 ml PO PRN PRN #0 08/15/16 12/23/20 400 mg-400 mg-40 mg/5 mL oral susp (Maalox Maximum Strength) cyanocobalamin (vitamin B-12) 1,000 mcg PO QDAY #0 08/15/16 12/23/20 1,000 mcg tablet,extended release folic acid 1 mg tablet 400 mcg PO QDAY #0 08/15/16 12/23/20 memantine 10 mg tablet 10 mg PO BID #0 08/15/16 12/23/20 aspirin 81 mg tablet 81 mg PO DAILY 12/23/20 12/23/20 magnesium hydroxide 400 mg/5 mL 400 mg PO DAILY 12/23/20 12/23/20 oral suspension (Milk of Magnesia) rosuvastatin 10 mg tablet 10 mg PO DAILY 12/23/20 12/23/20 Previous Rx's Medication Instructions Recorded hydrocodone 5 mg-acetaminophen 325 1 tab PO Q4HR PRN #10 tab 12/27/20 mg tablet Allergies Allergy/AdvReac Type Severity Reaction Status Date / Time atorvastatin [From LIPITOR] Allergy Unknown Verified 12/06/17 20:43 donepezil [DONEPEZIL] Allergy Unknown Verified 12/06/17 20:43 HYDROCHLORIC ACID Allergy Unknown Uncoded 10/14/17 11:55 Review of Systems Review of Systems ROS Unobtainable: Unobtainable due to mental condition Hematologic/Lymphatic On Anticoagulants: No Patient History Medical History Dementia High cholesterol Surgical History No significant past surgical history Social History household members: none Smoking Status: Current every day smoker alcohol intake: current Smoking Status: Current every day smoker tobacco type: cigarettes alcohol intake frequency: holidays/special occasions only Substance Use Type: does not use Exam Initial Vital Signs Initial Vital Signs: Vital Signs Temperature 98.7 F 05/21/21 17:01 Pulse Rate 83 05/21/21 17:01 Respiratory Rate 17 05/21/21 17:01 Blood Pressure 132/65 05/21/21 17:01 Pulse Oximetry 99 05/21/21 17:01 Const General: comfortable and well developed Limitations: altered mental status HENMT Head: normal to inspection and normocephalic Eyes Pupils: PERRL Resp Effort & Inspection: normal respiratory effort Auscultation: clear to auscultation bilaterally Cardio Rate: regular rate Rhythm: regular rhythm GI Inspection: non-distended Palpation: soft Skin General: no rashes or lesions noted Neuro Other: Unsure if patient is unwilling or unable to participate a my neurologic exam. Triage note states the patient was alert oriented times to however when I evaluated the patient she knew her name but did not know where she was not not know what year it was why she is here. She did follow commands with squeezing of her right hand but did not squeeze with her left hand. She did withdrawal to pain on her left hand. She also did not move her left leg to command but did withdrawal to pain. She did move her right lower extremity to command. Patient only open her eyes when I spoke with her. Extrem General: capillary refill normal Psych Appearance: grossly normal Scores GCS Sylvia coma scale eye opening: To sound Sylvia coma scale verbal response: Words Sylvia coma scale motor response: Obey commands Sylvia coma scale total score: 12 Course Orders Ordered: ED Orders 05/21/21 16:58 CT head/brain wo con Stat EKG-12 Lead Stat 05/21/21 17:42 COVID19 -Nasal swab/Pre-Proc Stat Complete Blood Count AUTO DIFF Stat Comprehensive Metabolic Panel Stat Ethanol (ETOH) Stat Lipase Stat Partial Thromboplastin Time Stat Prothrombin Time INR Stat Troponin & CK Cardiac Panel Stat 05/21/21 18:10 Urinalysis and Microscopic Stat Urine Culture Stat Sodium Chloride (Normal Saline 0.9%) 1,000 mls @ 125 mls/hr IV CONT RENETTA Last Admin: 05/21/21 18:21 Dose: 125 mls/hr Documented by: KELSY Discontinued Medications Ceftriaxone Sodium 1,000 mg/ (Sodium Chloride) 100 mls @ 200 mls/hr IV NOW ONE Stop: 05/21/21 18:52 Last Admin: 05/21/21 19:17 Dose: 200 mls/hr Documented by: KELSY Vital Signs Vital signs: Vital Signs - 8 hr 05/21/21 17:01 05/21/21 17:30 05/21/21 18:00 Temperature 98.7 F 97.6 F Pulse Rate 83 65 66 Respiratory Rate 17 16 17 Blood Pressure 132/65 119/65 118/66 Pulse Oximetry 99 97 95 05/21/21 18:30 Temperature Pulse Rate 62 Respiratory Rate 17 Blood Pressure 113/62 Pulse Oximetry 97 MDM - Neuro Symptoms/Deficit Lab Data Attestation: I reviewed the patient's lab results. Result diagrams: 05/21/21 17:42 05/21/21 17:42 Labs: Lab Results 05/21/21 05/21/21 05/21/21 Range/Units 17:42 17:42 17:42 WBC 10.5 (4.5-11.0) X10^3/uL RBC 4.61 (4.0-5.2) X10^6/uL Hgb 13.0 (12.0-16.0) g/dL Hct 39.4 (36-46) % MCV 85.3 (80-100) fL MCH 28.2 (26-34) PG MCHC 33.0 (30-36) % RDW 14.7 (11.6-14.8) % Plt Count 293 (150-400) X10^3/uL Neut % (Auto) 85.0 H (50-75) % Lymph % (Auto) 9.6 L (25-40) % Alexander % (Auto) 3.6 (3-14) % Eos % (Auto) 1.1 L (2-4) % Baso % (Auto) 0.7 (0-2) % Neut # (Auto) 8900 H (2943-6382) /uL Lymph # (Auto) 1000 L (0518-9292) /uL Alexander # (Auto) 400 (0-900) /uL Eos # (Auto) 100 (0-450) /uL Baso # (Auto) 100 (0-100) /uL PT 11.9 (10.1-12.7) SECONDS INR 1.1 (0.9-1.3) APTT 28 D (26.4-36.2) SECONDS Sodium 139 (137-145) mmol/L Potassium 4.3 (3.4-5.1) mmol/L Chloride 103 (98-107) mmol/L Carbon Dioxide 30 (22-32) mmol/L BUN 24 H (7-17) mg/dL Creatinine 1.21 H (0.52-1.04) mg/dL Estimated GFR 42.5 L (>60) mL/min BUN/Creatinine Ratio 19.8 (6-22) Glucose 133 H (80-110) mg/dL Calcium 9.8 (8.4-10.2) mg/dL Total Bilirubin 0.6 (0.2-1.3) mg/dL AST 24 (14-36) IU/L ALT 12 (<35) IU/L Alkaline Phosphatase 74 (38-126) U/L Total Creatine Kinase 72 (30-135) U/L CK-MB (CK-2) TNP CK-MB (CK-2) Rel Index TNP Troponin I < 0.012 (0.01-0.034) ng/mL Total Protein 7.0 (6.3-8.2) g/dL Albumin 4.1 (3.5-5.0) g/dL Globulin 2.9 (1.7-4.1) g/dL Albumin/Globulin Ratio 1.4 (1.0-2.8) Lipase 86 (23-300) U/L Urine Color Urine Appearance Urine pH (4.5-8.0) Ur Specific Goodell (1.000-1.035) Urine Protein (Negative) Urine Glucose (UA) (Negative) g/dL Urine Ketones (NEGATIVE) Urine Occult Blood (Negative) Urine Nitrate (Negative) Urine Bilirubin (NEGATIVE) Urine Urobilinogen (0.2) E.U./dL Ur Leukocyte Esterase (NEGATIVE) Urine RBC (0-5/HPF) Urine WBC (0-5/HPF) Ur Squamous Epith Cells (0-5/HPF) Urine Bacteria (None) Ur Culture Indicated? Ethyl Alcohol ( - 10) mg/dL SARS-CoV-2 (PCR) (Negative) 05/21/21 05/21/21 05/21/21 Range/Units 17:42 17:42 18:10 WBC (4.5-11.0) X10^3/uL RBC (4.0-5.2) X10^6/uL Hgb (12.0-16.0) g/dL Hct (36-46) % MCV (80-100) fL MCH (26-34) PG MCHC (30-36) % RDW (11.6-14.8) % Plt Count (150-400) X10^3/uL Neut % (Auto) (50-75) % Lymph % (Auto) (25-40) % Alexander % (Auto) (3-14) % Eos % (Auto) (2-4) % Baso % (Auto) (0-2) % Neut # (Auto) (7187-0938) /uL Lymph # (Auto) (9899-6800) /uL Alexander # (Auto) (0-900) /uL Eos # (Auto) (0-450) /uL Baso # (Auto) (0-100) /uL PT (10.1-12.7) SECONDS INR (0.9-1.3) APTT (26.4-36.2) SECONDS Sodium (137-145) mmol/L Potassium (3.4-5.1) mmol/L Chloride (98-107) mmol/L Carbon Dioxide (22-32) mmol/L BUN (7-17) mg/dL Creatinine (0.52-1.04) mg/dL Estimated GFR (>60) mL/min BUN/Creatinine Ratio (6-22) Glucose (80-110) mg/dL Calcium (8.4-10.2) mg/dL Total Bilirubin (0.2-1.3) mg/dL AST (14-36) IU/L ALT (<35) IU/L Alkaline Phosphatase (38-126) U/L Total Creatine Kinase (30-135) U/L CK-MB (CK-2) CK-MB (CK-2) Rel Index Troponin I (0.01-0.034) ng/mL Total Protein (6.3-8.2) g/dL Albumin (3.5-5.0) g/dL Globulin (1.7-4.1) g/dL Albumin/Globulin Ratio (1.0-2.8) Lipase (23-300) U/L Urine Color Yellow Urine Appearance Cloudy Urine pH 7.0 (4.5-8.0) Ur Specific Goodell 1.010 (1.000-1.035) Urine Protein 2+ H (Negative) Urine Glucose (UA) Negative (Negative) g/dL Urine Ketones Negative (NEGATIVE) Urine Occult Blood 3+ H (Negative) Urine Nitrate Negative (Negative) Urine Bilirubin Negative (NEGATIVE) Urine Urobilinogen 0.2 (0.2) E.U./dL Ur Leukocyte Esterase 2+ H (NEGATIVE) Urine RBC 30-100/hpf H (0-5/HPF) Urine WBC >100/hpf H (0-5/HPF) Ur Squamous Epith Cells 1-5 /hpf (0-5/HPF) Urine Bacteria Many (>30) H (None) Ur Culture Indicated? Specimen cultured Ethyl Alcohol < 10 ( - 10) mg/dL SARS-CoV-2 (PCR) Negative (Negative) Imaging Data CT scan - head: Radiologist's Impression: Age-related changes, no acute infarct ECG Data Attestation: I personally reviewed and interpreted this ECG as follows: Interpretation: Sinus rhythm Ventricular rate 85 Normal axis QRS 122 milliseconds Normal QTC Right bundle branch block No ST T wave changes MDM Narrative Medical decision making narrative: The triage initial evaluation the patient seems to be somewhat different than my initial evaluation. Head CT did not show any signs of acute stroke. Her labs are unremarkable. Vital signs are unremarkable. Patient's [id number] is at baseline who knows her very well. She states she does have episodes where she seems to be more confused than others but this is not new today. She does require quite a bit of help with her daily activities at her living facility. Power claims attorney states that the patient is becoming incontinent of urine at baseline. Her urinalysis today is somewhat concerning for UTI. Her [id number] states that patient would be okay with admission to the hospital on IV antibiotics. Still have some concern about an acute CVA however given her desire as DNR and comfort measures will hold on further workup this for now. Discussed the case with ARON Alejandro who will admit for further evaluation and treatment. Discharge Plan Departure Patient Disposition: Admitted As Inpatient Clinical Impression: UTI (urinary tract infection), Altered mental status
[2021-05-21 17:51] LABS: Add Manual Diff / Slide Review NO; Basophils Absolute Auto 100 /uL (0-100); Basophils Percent Auto 0.7 % (0-2); Eosinophils Absolute Auto 100 /uL (0-450); Eosinophils Percent Auto 1.1 % (2-4); Hematocrit 39.4 % (36-46); Lymphocytes Absolute Auto 1000 /uL (1100-4500); Lymphocytes Percent Auto 9.6 % (25-40); Mean Corpuscular Hemoglobin 28.2 PG (26-34); Mean Corpuscular Volume 85.3 fL (80-100); Monocytes Absolute Auto 400 /uL (0-900); Monocytes Percent Auto 3.6 % (3-14); Neutrophils Absolute Auto 8900 /uL (1500-7000); Platelet Count 293 X10^3/uL (150-400); Red Blood Cell Count 4.61 X10^6/uL (4.0-5.2); Red Cell Distribution Width 14.7 % (11.6-14.8); White Blood Cell Count 10.5 X10^3/uL (4.5-11.0)
[2021-05-21 18:06] LABS: Alanine Aminotransferase 12 IU/L (<35); Albumin 4.1 g/dL (3.5-5.0); Albumin Globulin Ratio 1.4 (1.0-2.8); Alkaline Phosphatase 74 U/L (38-126); Aspartate Aminotransferase 24 IU/L (14-36); BUN Creatinine Ratio 19.8 (6-22); Bilirubin Total 0.6 mg/dL (0.2-1.3); Blood Urea Nitrogen 24 mg/dL (7-17); Calcium 9.8 mg/dL (8.4-10.2); Carbon Dioxide 30 mmol/L (22-32); Chloride 103 mmol/L (98-107); Creatine Kinase 72 U/L (30-135); Estimated Glomerular Filt Rate 42.5 mL/min (>60); Globulin 2.9 g/dL (1.7-4.1); Glucose 133 mg/dL (80-110); HEMOLYSIS < 15 (0-50); Lipase 86 U/L (23-300); Potassium 4.3 mmol/L (3.4-5.1); Sodium 139 mmol/L (137-145)
[2021-05-21 18:07] LABS: Ethanol (ETOH) < 10 mg/dL
[2021-05-21 18:08] LABS: INR 1.1 (0.9-1.3); Prothrombin Time 11.9 SECONDS (10.1-12.7)
[2021-05-21 18:10] LABS: PTT Partial Thromboplastin Tim 28 SECONDS (26.4-36.2)
[2021-05-21 18:18] LABS: Troponin I < 0.012 ng/mL (0.01-0.034)
[2021-05-21 18:21] LABS: Appearance Urine UA CLOUDY; Bilirubin Urine UA NEGATIVE (NEGATIVE); Color Urine UA YELLOW; Glucose Urine UA NEGATIVE (Negative); Ketones Urine UA NEGATIVE (NEGATIVE); Leukocyte Esterase Urine UA 2+ (NEGATIVE); Nitrite Urine UA NEGATIVE (Negative); Occult Blood Urine UA 3+ (Negative); Protein Urine UA 2+ (Negative); Urobilinogen Urine UA 0.2 E.U./dL (0.2)
[2021-05-21] MEDS: SODIUM CHLORIDE 0.9% 1,000 ML 125 ML IV (18:21)
[2021-05-21 18:22] LABS: COVID19 -Nasal RAPID Negative (Negative)
[2021-05-21 18:39] LABS: RBC Urine 30-100/HPF (0-5/HPF); Squamous Epithelial Cell Urine 1-5 /HPF (0-5/HPF); WBC Urine >100/HPF (0-5/HPF)
[2021-05-21 18:40] LABS: Bacteria Urine Many (>30); Culture Indicated Urine Specimen Cultured
[2021-05-21] MEDS: cefTRIAXone 1,000 MG in SODIUM CHLORIDE 0.9% 100 ML 200 ML IV ×2 (19:17→22:12)
[2021-05-21 21:26] LABS: Lactate (Lactic Acid) 1.5 mmol/L (0.7-2.1); Magnesium 2.3 mg/dL (1.6-2.3)
[2021-05-21 21:31] LABS: Hemoglobin A1C% w Est Avg Glu 5.3 % (4.0-6.0)
[2021-05-21] MEDS: SODIUM CHLORIDE 0.9% 1,000 ML 60 ML IV (22:11)
--- NOTE | 2021-05-22 00:30 | PC.ADMIT ---
[address] [place] [address] Admission Note: Patient arrived to floor from ER at 20:45, friend at bedside. Patient alert to self, pleasantly confused. Side rails up, bed locked and in low position. Call light within reach. NS running @ 60ml/hr and Rocephin infused. The patient,Tabatha Mondragon,81 y/o, was given written information regarding hospital policies, unit procedures and contact persons. Patient's smoking status: Current every day smoker. Vital Signs - 8 hr 05/21/21 17:01 05/21/21 17:30 05/21/21 18:00 Temperature 98.7 F 97.6 F Pulse Rate 83 65 66 Respiratory Rate 17 16 17 Blood Pressure 132/65 119/65 118/66 Pulse Oximetry 99 97 95 05/21/21 18:30 05/21/21 18:48 05/21/21 19:00 Temperature Pulse Rate 62 83 82 Respiratory Rate 17 Blood Pressure 113/62 Pulse Oximetry 97 96 95 05/21/21 19:19 05/21/21 19:30 05/21/21 20:00 Temperature Pulse Rate 81 80 79 Respiratory Rate Blood Pressure 128/64 119/61 122/62 Pulse Oximetry 95 95 96 05/21/21 20:50 Temperature 97.6 F Pulse Rate 76 Respiratory Rate 18 Blood Pressure 138/67 Pulse Oximetry 97
--- NOTE | 2021-05-22 02:20 | P.HP_ITS ---
History of Present Illness History of Present Illness Date Patient Seen: 05/21/21 Time Patient Seen: 21:06 Chief complaint: slurred speech Narrative: Patient is Tabatha Mondragon an 81-year-old female who resides at [facility] living ,with a medical history of Depression, Alzheimer's Dementia, Acid reflux, Hyperlipidemia and Decreased Mobility who fell in December and was seen by Dr. Sosa for spiral fracture of the right Tibia.? Patient arrived via BLS and initially reported that approximately 5 hours prior to arrival here in the emergency department to have a change in mental status.? Unsure exactly what has happened is the patient is unable to provide any HPI or ROS.? The BLS crew advised that there was potentially some concern about a UTI or stroke. Patient uses a wheelchair at baseline but usually stands/walks a few feet for transfers from bed to chair.?Patients POA was at bedside in ED and advised that the patient does have a PLOST form which does indicate she is a DNR with comfort measures only.?POA advised ED that admission for IV fluids and antibiotics under comfort measures was the extent of requested care. I also confirmed this with P OA upon admit. The POA verbalized to ED provider that they did not wish to perform blood cultures and limit healthcare measures to ensure adequate sleep. The patient was sleeping at the time of admit. I did not wake patient out of respect for her documented wishes. Patient's vitals were stable upon admit temp 97.6?, BP 122/62, HR 79, RR 17, O2 saturation 96% on room air. T patient's WBC WNL with neutrophils 8900. Patient's BUN, creatinine and GFR were compared to labs on 12/23/2020: BUN 24, creatinine 1.21, GFR 42.5. 12/23/2020 BUN 16, creatinine 0.76, GFR>60. Urinalysis is positive for many bacteria, troponin and lipase WNL. Patient admitted for encephalopathy secondary to UTI with complicating ALEXANDRA comfort measures. Patient History Medical History Alzheimer's dementia Dementia High cholesterol Surgical History No significant past surgical history Family & Social History Social History: household members none Safety & Behavioral: Feels Safe in Current Unwilling to Answer Environment Been Physically Hurt or Unwilling to Answer Threatened By a Person Suicidal Ideation Description None Suicide Plan Description No Plan Tobacco & Substance use: Tobacco type cigarettes Smoking Status Current every day smoker alcohol intake current alcohol intake frequency holiday/special occasion Substance Use Type does not use Meds Home Medications and Allergies Home Medications Medication Instructions Recorded Confirmed Type citalopram 20 mg tablet 20 mg PO QDAY #0 05/26/16 05/22/21 History multivitamin (Multiple Vitamins) 1 tab PO QDAY #0 05/26/16 05/22/21 History aluminum-mag hydroxide-simethicone 30 ml PO PRN PRN #0 08/15/16 05/22/21 History 400 mg-400 mg-40 mg/5 mL oral susp (Maalox Maximum Strength) cyanocobalamin (vitamin B-12) 1,000 mcg PO QDAY #0 08/15/16 05/22/21 History 1,000 mcg tablet,extended release folic acid 1 mg tablet 400 mcg PO QDAY #0 08/15/16 05/22/21 History memantine 10 mg tablet 10 mg PO BID #0 08/15/16 05/22/21 History aspirin 81 mg tablet 81 mg PO DAILY 12/23/20 05/22/21 History magnesium hydroxide 400 mg/5 mL 400 mg PO DAILY 12/23/20 05/22/21 History oral suspension (Milk of Magnesia) rosuvastatin 10 mg tablet 5 mg PO DAILY 12/23/20 05/22/21 History hydrocodone 5 mg-acetaminophen 325 1 tab PO Q4HR PRN #10 tab 12/27/20 05/22/21 Rx mg tablet Antacid (calcium carbonate) 500 tab PO BID 05/22/21 05/22/21 History cholecalciferol (vitamin D3) 25 25 mcg PO DAILY 05/22/21 05/22/21 History mcg (1,000 unit) tablet Allergies Allergy/AdvReac Type Severity Reaction Status Date / Time atorvastatin [From LIPITOR] Allergy Unknown Verified 12/06/17 20:43 donepezil [DONEPEZIL] Allergy Unknown Verified 12/06/17 20:43 HYDROCHLORIC ACID Allergy Unknown Uncoded 10/14/17 11:55 Review of Systems Review of Systems Narrative: Patient unable to participate in HPI or ROS due to Alzheimer's dementia with secondary encephalopathy upon admit. Exam Vital Signs (past 8 hours): - 05/21/21 18:30 05/21/21 18:48 05/21/21 19:00 Temperature Pulse Rate 62 83 82 Respiratory Rate 17 Blood Pressure 113/62 Pulse Oximetry 97 96 95 05/21/21 19:19 05/21/21 19:30 05/21/21 20:00 Temperature Pulse Rate 81 80 79 Respiratory Rate Blood Pressure 128/64 119/61 122/62 Pulse Oximetry 95 95 96 05/21/21 20:50 Temperature 97.6 F Pulse Rate 76 Respiratory Rate 18 Blood Pressure 138/67 Pulse Oximetry 97 Oxygen Delivery Method Room Air Narrative Exam Narrative: General: Patient is a well-developed, well-nourished elderly female who is sleeping & snoring and appears in no distress at this time. HEENT: Normocephalic, atraumatic, extraocular muscles intact, oral pharynx is clear and mucous membranes are dry. Neck is supple and symmetric, trachea is midline, no adenopathy, no thyroid enlargement, nontender, no masses palpated. Negative for JVD Chest: no nasal flaring, retractions, or tachypneic labored breathing. Lungs: Auscultation of all lung frias are clear without adventitious sounds, wheezes, rhonchi, or rales. Cardio: regular rate and rhythm without murmur, rubs, or gallops, no carotid bruit, no cardiac pulsations present. Abdomen: Soft nontender, negative for organomegaly, or masses. Bowel sounds are present in all 4 quadrants without guarding or rebound, no CVA tenderness. Musculoskeletal: no extremity deformity, crepitus, effusions, cyanosis, clubbing or edema present. intact radial and pedal pulses are normal. Skin: Warm dry and intact without rashes, ulcerations or petechiae. Neuro: Unable to assess, patient is sleeping. Psych: Alzheimer's dementia Objective Labs Result Diagrams: 05/21/21 17:42 05/21/21 17:42 Labs: Laboratory Results - last 24 hr 05/21/21 05/21/21 05/21/21 17:42 17:42 17:42 WBC 10.5 RBC 4.61 Hgb 13.0 Hct 39.4 MCV 85.3 MCH 28.2 MCHC 33.0 RDW 14.7 Plt Count 293 Neut % (Auto) 85.0 H Lymph % (Auto) 9.6 L [place] % (Auto) 3.6 Eos % (Auto) 1.1 L Baso % (Auto) 0.7 Neut # (Auto) 8900 H Lymph # (Auto) 1000 L [place] # (Auto) 400 Eos # (Auto) 100 Baso # (Auto) 100 PT 11.9 INR 1.1 APTT 28 D Sodium 139 Potassium 4.3 Chloride 103 Carbon Dioxide 30 BUN 24 H Creatinine 1.21 H Estimated GFR 42.5 L BUN/Creatinine Ratio 19.8 Glucose 133 H Hemoglobin A1c Lactate Calcium 9.8 Magnesium Total Bilirubin 0.6 AST 24 ALT 12 Alkaline Phosphatase 74 Total Creatine Kinase 72 CK-MB (CK-2) TNP CK-MB (CK-2) Rel Index TNP Troponin I < 0.012 Total Protein 7.0 Albumin 4.1 Globulin 2.9 Albumin/Globulin Ratio 1.4 Lipase 86 Urine Color Urine Appearance Urine pH Ur Specific [place] Urine Protein Urine Glucose (UA) Urine Ketones Urine Occult Blood Urine Nitrate Urine Bilirubin Urine Urobilinogen Ur Leukocyte Esterase Urine RBC Urine WBC Ur Squamous Epith Cells Urine Bacteria Ur Culture Indicated? Ethyl Alcohol SARS-CoV-2 (PCR) 05/21/21 05/21/21 05/21/21 17:42 17:42 17:42 WBC RBC Hgb Hct MCV MCH MCHC RDW Plt Count Neut % (Auto) Lymph % (Auto) [place] % (Auto) Eos % (Auto) Baso % (Auto) Neut # (Auto) Lymph # (Auto) [place] # (Auto) Eos # (Auto) Baso # (Auto) PT INR APTT Sodium Potassium Chloride Carbon Dioxide BUN Creatinine Estimated GFR BUN/Creatinine Ratio Glucose Hemoglobin A1c Lactate Calcium Magnesium 2.3 Total Bilirubin AST ALT Alkaline Phosphatase Total Creatine Kinase CK-MB (CK-2) CK-MB (CK-2) Rel Index Troponin I Total Protein Albumin Globulin Albumin/Globulin Ratio Lipase Urine Color Urine Appearance Urine pH Ur Specific [place] Urine Protein Urine Glucose (UA) Urine Ketones Urine Occult Blood Urine Nitrate Urine Bilirubin Urine Urobilinogen Ur Leukocyte Esterase Urine RBC Urine WBC Ur Squamous Epith Cells Urine Bacteria Ur Culture Indicated? Ethyl Alcohol < 10 SARS-CoV-2 (PCR) Negative 05/21/21 05/21/21 05/21/21 17:42 17:42 18:10 WBC RBC Hgb Hct MCV MCH MCHC RDW Plt Count Neut % (Auto) Lymph % (Auto) [place] % (Auto) Eos % (Auto) Baso % (Auto) Neut # (Auto) Lymph # (Auto) [place] # (Auto) Eos # (Auto) Baso # (Auto) PT INR APTT Sodium Potassium Chloride Carbon Dioxide BUN Creatinine Estimated GFR BUN/Creatinine Ratio Glucose Hemoglobin A1c 5.3 Lactate 1.5 Calcium Magnesium Total Bilirubin AST ALT Alkaline Phosphatase Total Creatine Kinase CK-MB (CK-2) CK-MB (CK-2) Rel Index Troponin I Total Protein Albumin Globulin Albumin/Globulin Ratio Lipase Urine Color Yellow Urine Appearance Cloudy Urine pH 7.0 Ur Specific [place] 1.010 Urine Protein 2+ H Urine Glucose (UA) Negative Urine Ketones Negative Urine Occult Blood 3+ H Urine Nitrate Negative Urine Bilirubin Negative Urine Urobilinogen 0.2 Ur Leukocyte Esterase 2+ H Urine RBC 30-100/hpf H Urine WBC >100/hpf H Ur Squamous Epith Cells 1-5 /hpf Urine Bacteria Many (>30) H Ur Culture Indicated? Specimen cultured Ethyl Alcohol SARS-CoV-2 (PCR) Assessment & Plan Assessment & Plan narrative: Patient is Tabatha Mondragon an 81-year-old female who resides at [facility] ,with a medical history of Depression, Alzheimer's Dementia, Acid reflux, Hyperlipidemia and Decreased Mobility who fell in December and was seen by Dr. Sosa for spiral fracture of the right Tibia.? Patient arrived via BLS and initially reported that approximately 5 hours prior to arrival to the emergency department had a change in mental status.?Patient admitted for encephalopathy likely secondary to urinary tract infection resulting in ALEXANDRA. 1. Encephalopathy, acute, secondary to urinary tract infection, acute, resulting in ALEXANDRA, acute, present on admission -Does not meet SIRS/Sepsis criteria. -BUN of 24, creatinine 1.21, GFR 42.5: Last known 12/23/2020 BUN 16, creatinine 0.76, GFR> 60. -urine culture pending -1 gram Rocephin in ED, ordered 2nd gram of Rocephin-then continue 1G Q24s. -Fluid rehydration NS @60cc/hr -Lactate, Lipase -WNL -POA verbalized that the patient did not want to complete blood cultures and only wanted fluid rehydration and IV antibiotics with minimal medical interventions/Comfort Care-as a DNR. 2. Spiral tib-fib fracture repair, 12/2020, chronic, present on admission -patient placed on fall precautions, immobility increases the risk of pyelonephritis/septicemia. 3. Alzheimer's Dementia, acute on chronic, present on admission -continue memantine.? Listed allergy to donepezil. 4. Hyperlipidemia, chronic, present on admission -continue rosuvastatin Code status:DNR/DNI COMFORT MEASURES Surrogate decision maker: Gita FRANCO PCR:Negative COVID vaccination: Unknown DVT/VTE prophylaxis:Lovenox 30 & SCDs' Disposition: Patient admitted for observation for generalized rehydration and IV antibiotics for the resolution of UTI/pyelonephritis. Expected length of stay less than 2 midnights. I have utilized all available immediate resources to obtain, update, or review the patient's current medications. I confirmed that the patient's advanced care plan is present, Code status is documented and/or surrogate decision maker is listed in the patient's medical record. Time Spent With Patient Critical Care time: I spent a total of [] minutes of critical care time on this patient's care today; this time is exclusive of procedural time. Quality VTE Deep Vein Thrombosis/Pulmonary Embolism Present on Admission: No
[2021-05-22 06:21] LABS: BUN Creatinine Ratio 21.1 (6-22); Blood Urea Nitrogen 20 mg/dL (7-17); Carbon Dioxide 29 mmol/L (22-32); Chloride 109 mmol/L (98-107); Estimated Glomerular Filt Rate 56.2 mL/min (>60); Glucose 96 mg/dL (80-110); HEMOLYSIS < 15 (0-50); Potassium 4.5 mmol/L (3.4-5.1); Sodium 142 mmol/L (137-145)
[2021-05-22 08:00] VITALS: BP 149/78; PULSE 71; RESP 16; TEMP 35.6; O2SAT 96
[2021-05-22] MEDS: cefTRIAXone 1,000 MG in SODIUM CHLORIDE 0.9% 100 ML 200 ML IV (09:25)
[2021-05-22] MEDS: ENOXAPARIN 30 MG/0.3 ML SYRINGE SUBCUT (09:25)
--- NOTE | 2021-05-22 13:24 | PC.NURSE ---
Addendum entered by Varsha Gonzalez R.N. 05/22/21 18:31: 1830- Patient just changed, incontinent of xl amount of urine with some pink tinge to it. Patient is here for a uti. She denies pain and is reading her magazine and wants to go to bed later so that she can sleep all night. Original Note: 1100- Patient is resting and getting ready to eat her lunch. Incontinent of urine and brief changed. She denies pain or discomfort at this time and has no needs at this time. Patient is actually oriented to herself and faces.
[2021-05-22] MEDS: SODIUM CHLORIDE 0.9% 1,000 ML 60 ML IV (15:12)
--- NOTE | 2021-05-22 16:15 | CM.IDA ---
Initial DCP Assessment Note Pt is an 81 yo female, resident at [facility], [place], presents after an episode of slurred speech and change in mental status. According to Dr Garber, patient has a confirmed UTI and is expected to remain here for an additional 24-48 hrs. PCP: Not listed Payer: Arianna LATIF Reviewed chart, patient w/Alz Dementia so placed call to DPOA/friend Gita Salcido P# [phone]. Ramakrishna Jorge Mondragon ([place]) is financial POA P# [phone]. According to Gita, patient has lived at [facility] for approx. 5 years and it has worked out well so far. Patient has been in a declining process since breaking her hip and leg w/in the last year; patient is mostly w/c bound and requires assist w/all ADLs at [facility], [place]. Gita hopes that patient can return to [facility] upon DC. Suggested hospice referral to assist patient and staff at [facility]; and explained w/patient's age and dementia, this might provide an extra layer of support at [facility] as patient's dementia progresses. Gita adamantly was against this referral, stated it was not appropriate at this time and patient continued to have good quality of life. Placed call to BRIJESH Ambrosio at [facility]; she anticipated welcoming patient back home and was hopeful she could complete a bedside assessment tomorrow. Daily stated we cannot provide 2 person transfer, further explained if patient was one person assist, they would only need transport to be arranged and a signed medication list. Plan: DC back to [facility] anticipated, unless patient is mentally and/or functionally far from her baseline. Will follow closely as medical POC unfolds. Keeping DPOA Gita updated BEULAH Szymanski Discharge Planning/Care Management CM Discharge Assessment Start: 05/22/21 16:13 Freq: Status: Active Protocol: Document 05/22/21 16:13 ROCK (Rec: 05/22/21 16:15 ROCK [id number]) Discharge Planning Assessment Assigned Nurse Advisor BEULAH Carrillo DPOA/Assigned Designee Name Gita Salcido DPOA/friend Contact Information [phone] Advance Directives? Yes Advance Directives on File Yes History Provided By Friend Prior Living Arrangements Half-Way Facility Household Members none Type of transporation used prior to Relies on Others admit [facility] Willing to Return to Facility? Yes Independent with ADL's No Is patient alert and oriented? No Needs Assistance With Bathing,Grooming,Meal Prep, Toileting,Managing Medications ,Home Chores / Shopping Barriers to Discharge No Comment Patient may DC back to [facility] if she does not require more than one person assist. Patient is mostly w/c bound at baseline and often wheels herself around the facility Discharge Plan Assisted Living Facility Transportation Arrangement Family vs [facility] van Referrals Initiated None needed Additional Comment At this time
[2021-05-22 22:21] VITALS: PULSE 81; RESP 16; O2SAT 94
[2021-05-23 08:00] VITALS: BP 161/81; PULSE 77; RESP 16; TEMP 36.2; O2SAT 94; O2SAT 96
[2021-05-23] MEDS: ENOXAPARIN 30 MG/0.3 ML SYRINGE SUBCUT (10:12)
[2021-05-23] MEDS: cefTRIAXone 1,000 MG in SODIUM CHLORIDE 0.9% 100 ML 200 ML IV (10:12)
--- NOTE | 2021-05-23 13:45 | CM.DPNOTE ---
DCP Cont Placed call to BRIJESH Ambrosio at [facility] ([facility]); patient is expected to be medically cleared tomorrow 05.24.21. Daily asks how patient is moving today? PT order placed this morning and awaiting results of this eval Plan: DC back to [facility] is expected; unless patient is far below functional baseline, then would need to reassess. ROCK
--- NOTE | 2021-05-23 14:10 | PC.NURSE ---
Patient is alert and oriented x1to2. She denies pain and has been napping most of the morning. Physical therapy is getting her up now, IVF infusing and patient tolerating this well. She eats well at meals and has no needs at this time.
--- NOTE | 2021-05-23 14:57 | PT.IIE ---
Medical History (Last Reviewed 05/22/21 @ 02:52 by [place], [facility]) Alzheimer's dementia Dementia High cholesterol Physical Therapy Inpatient Evaluation/Re-Eval M1 PT/OT-IP Prior Functional Status Start: 05/23/21 13:40 Freq: NEEDED Status: Active Protocol: Document 05/23/21 14:33 (Rec: 05/23/21 14:57 [id number]) Medical Review Prior Functional Status Medical History Reviewed Yes Diet/Fluid Consistency Regular Communication Pt has dementia at baseline Mobility and Gait see below Activities of Daily Living and IADL's patient has lived at [facility] for approx. 5 years and it has worked out well so far. Patient has been in a declining process since breaking her hip and leg w/in the last year; patient is mostly w/c bound and requires assist w/all ADLs at [facility] Social History Household Members none Living Arrangements [facility] Facility Number of Stairs To Enter/Railing? unable to obtain information d /t her limited cognition Additional Social History Comment unable to obtain information d /t her limited cognition M2 PT-IP Current Condition Start: 05/23/21 13:40 Freq: NEEDED Status: Active Protocol: Document 05/23/21 14:33 (Rec: 05/23/21 14:57 [id number]) Physical Therapy Current Condition Current Condition Evaluation Date 05/23/21 Treatment Diagnosis UTI, generalized weakness, difficulty in mobility M3 PT-IP Subjective Start: 05/23/21 13:40 Freq: NEEDED Status: Active Protocol: Document 05/23/21 14:33 (Rec: 05/23/21 14:57 [id number]) Subjective Physical Therapy Visit Type Type Initial Evaluation Visit Start Time 14:15 Visit Stop Time 14:30 Total Visit Minutes 15 Number of MARKETING PRODUCTION COORDINATOR Visits 0 Physical Therapy Visit Comments Patient Comments I think im at a restaurant Therapy Pain Assessment Pain When Pain Assessed During Mobility Pain Present Pain Present Unable to Respond FLACC Pain Scale Face Occasional grimace/frown M4 PT-IP Mobility and Gait Start: 05/23/21 13:40 Freq: NEEDED Status: Active Protocol: Document 05/23/21 14:33 (Rec: 05/23/21 14:57 [id number]) PT-Bed Mobility Assessment Supine to Sit Supine to Sit Moderate Assistance,1 Person Assistance,Head of Bed Elevated,Bedrails Sit to Supine Sit to Supine Moderate Assistance,1 Person Assistance,Head of Bed Elevated,Bedrails Scooting Scooting to Edge of Bed Moderate Assistance Scooting Up and Down in Bed Moderate Assistance PT-Transfer Assessment Sit to and From Stand Sit to and from Stand Maximum Assistance,1 Person Assistance,Use of Upper Extremities Equipment Transfer Assistive Device Gait Belt,Front Wheeled Walker Orthotic/Prosthetic Devices or Brace: No Transfers Transfer Destination Bed Comments Mobility Comments pt was asleep upon PT arrival. BRIJESH Maddox stated she has been sleeping since she was admitted. I woke her up and she agreed to participate PT. Pt is AxO1. cannot recall date , time, place, where she lives , but her name only. She was able to follow 1 step command. She initially sit up fpc with use of bedrails then mod A to pivot with the use of bed pad. She needed max A to get close to EOB. She needs support from FWW to sit upright. She then attempted to stand with max A x1 5times but unsuccessful to stand upright but with significant retropulsion. She c/o R leg pain from surgical site. She then sat back down to chair and required mod A for sit to supine. She needed mod A to scoot up to head of bed as well. Denied any discomfort. Call light placed within reach . Left door open for nursing observation. Gait Assessment Comments Gait Comments unable Stair Climbing Assessment Comments Stair Climbing Comments unable PT-Balance Assessment Sitting Balance and Reactions Static Sitting Balance Ability Poor Dynamic Sitting Balance Ability Poor Standing Balance and Reactions Device Used unable to stand M5 PT-IP Objective Assessments Start: 05/23/21 13:40 Freq: NEEDED Status: Active Protocol: Document 05/23/21 14:33 (Rec: 05/23/21 14:57 [id number]) Orientation Orientation/Cognition Level of Alertness Confusional State Orientation Name Safety Awareness Decreased Safety Awareness Memory Description Short Term Impaired,Chcf Impaired Comments able to follow 1step simple command only able to recall her name only. Gross Range of Motion Upper Extremity ROM Assessment Within Functional Limits Lower Extremity ROM Assessment Right Impaired Strength Upper Extremity Strength Assessment Within Functional Limits Lower Extremity Strength Assessment Right Impaired Hip 3-/5 Knee 3-/5 Comments Strength Comments pain with WB on RLE M6 PT-IP Treatment Start: 05/23/21 13:40 Freq: NEEDED Status: Active Protocol: Document 05/23/21 14:33 (Rec: 05/23/21 14:57 [id number]) Physical Therapy Treatment Education Education Provided Precautions,Weight Bearing Status,Post-Op Packet,Safety M7 PT-IP Assessment and Plan Start: 05/23/21 13:40 Freq: NEEDED Status: Active Protocol: Document 05/23/21 14:33 (Rec: 05/23/21 14:57 [id number]) PT Summary Assessment and Plan Potential Rehabilitation Potential Fair Status of Condition at Evaluation Evolving Summary Impairments Pain,ROM,Strength,Balance, Cognition,Bed Mobility, Transfers,Gait,Activity Tolerance Assessment Summary Tabatha is a 81 yo female admitted to d/t slurred speech and change in mental status. CT scan = -ve but positive for UTI. PLOF= patient has lived at [facility] for approx. 5 years and it has worked out well so far. Patient has been in a declining process since breaking her hip and leg w/in the last year; patient is mostly w/c bound and requires assist w/all ADLs at [facility]. Upon assessment, pt is AxO1 and only able to recall her name and follow simple command. She overall needed mod to max A for bed mobility and she cannot stand with FWW d/t pain in RLE and weakness. Therefore, she is far from baseline at this point who needs thomas lift for transfer. Pt will need 24/7 assist / SNF for extensive care d/t her very limited cognition and mobility. Goals Bed Mobility Goal Contact Guard Assistance Transfer Goal Contact Guard Assistance,Front Wheeled Walker Gait Goal Contact Guard Assistance,Front Wheel Walker Other Goals transfer to [facility] [place]/ W/c Days to Meet Goals 5 Frequency of Treatment Frequency Of Treatment Once a Day Treatment Plan Physical Therapy Treatment Plan Bed Mobility Training,Transfer Training,Gait Training, Therapeutic Exercise,Balance Retraining,Post Op Education, Discharge Planning,Hot or Cold Pack,Neuromuscular Re-ed, Manual Therapy Other Recommendations and Next Treatment transfer to [facility]/ W/c if Focus possible Weight Bearing Status Weight Bearing Status Full Weight Bearing Recommendations To Nursing Amount of Assist Needed Mechanical Lift Discharge Recommendations PT Discharge Recommendations Home with 24/7 Assist Available,SNF Rehab Other Discharge Recommendations depends on pt's progress. Pt currently needs thomas lift for all mobility/ transfer Transportation Needs at Discharge Wheelchair/Cabulance,Stretcher /Ambulance
--- NOTE | 2021-05-23 21:10 | PM.PN.1 ---
Subjective Subjective Interval history: Patient is unable to engage in conversation well secondary to advanced dementia. She does remember that she lives in [facility]. She has completed 3 days of IV ceftriaxone for UTI. She is comfort care status. Exam Vital Signs (past 8 hours): - 05/24/21 19:11 Pulse Rate 83 Respiratory Rate 16 Pulse Oximetry 97 Oxygen Delivery Method Room Air Oxygen Flow Rate 0 Const Other: Patient is sitting in chair comfortably upon my entering the room, in no apparent acute distress. Eyes Other: No scleral icterus appreciated. Neck Other: No carotid bruits appreciated. Chest Other: Diminished breath sounds bilaterally with no adventitious breath sounds appreciated. Cardio Other: Regular rate and rhythm. S1 and S2 heart sounds auscultated with no extra heart sounds or murmurs appreciated. No peripheral edema noted. GI Other: Soft, non-distended, non-tender. Bowel sounds present. Extrem Other: Palpable dorsalis pedis pulses bilaterally. Objective Labs Result Diagrams: 05/21/21 17:42 05/22/21 05:51 [facility] Medical History Alzheimer's dementia Dementia High cholesterol Surgical History No significant past surgical history Social History household members: none Smoking Status: Current every day smoker alcohol intake: current Assessment & Plan Assessment & Plan narrative: Patient is Tabatha Mondragon an 81-year-old female who resides at [facility] ,with a medical history of Depression, Alzheimer's Dementia, Acid reflux, Hyperlipidemia and Decreased Mobility who fell in December and was seen by Dr. Sosa for spiral fracture of the right Tibia.? Patient arrived via BLS and initially reported that approximately 5 hours prior to arrival to the emergency department had a change in mental status.?Patient admitted for encephalopathy likely secondary to urinary tract infection resulting in ALEXANDRA. 1. Encephalopathy, acute, secondary to urinary tract infection, acute, resulting in ALEXANDRA, acute, present on admission -Does not meet SIRS/Sepsis criteria. -BUN of 24, creatinine 1.21, GFR 42.5:? Last known 12/23/2020 BUN 16, creatinine 0.76, GFR> 60. -urine culture pending -1 gram Rocephin in ED, ordered 2nd gram of Rocephin-then continue 1G Q24s. -Fluid rehydration NS @60cc/hr -Lactate, Lipase -WNL -POA verbalized that the patient did not want to complete blood cultures and only wanted fluid rehydration and IV antibiotics with minimal medical interventions/Comfort Care-as a DNR. 2. Spiral tib-fib fracture repair, 12/2020, chronic, present on admission -patient placed on fall precautions, immobility increases the risk of pyelonephritis/septicemia. 3. Alzheimer's Dementia, acute on chronic, present on admission -continue memantine.? Listed allergy to donepezil. 4. Hyperlipidemia, chronic, present on admission -continue rosuvastatin Time Spent With Patient Critical Care time: I spent a total of [] minutes of critical care time on this patient's care today; this time is exclusive of procedural time. Quality VTE Deep Vein Thrombosis/Pulmonary Embolism Present on Admission: No
[2021-05-23] MEDS: SODIUM CHLORIDE 0.9% 1,000 ML 60 ML IV (23:16)
--- NOTE | 2021-05-24 06:05 | PC.NURSE ---
Addendum entered by Cailin Doan R.N. 05/24/21 06:24: Dr. Julien gave verbal orders - okay to leave IV out. No other orders at this time. Original Note: Nurse went to check on patient for 0600 check and patient had mentioned that she needed a brief change. This RN noticed that the patient was messing with the netting that was over the IV site. This RN then saw the catheter hanging down and the tape and Tegaderm balled up in a tissue on the bedside table. Will notify Provider before inserting new IV site.
[2021-05-24 08:00] VITALS: BP 159/66; PULSE 83; RESP 18; TEMP 36.3; O2SAT 97
--- NOTE | 2021-05-24 08:59 | PT.IPTN ---
Physical Therapy Treatment Note M2 PT-IP Current Condition Start: 05/23/21 13:40 Freq: NEEDED Status: Active Protocol: Document 05/23/21 14:33 (Rec: 05/23/21 14:57 [id number]) Physical Therapy Current Condition Current Condition Evaluation Date 05/23/21 Treatment Diagnosis UTI, generalized weakness, difficulty in mobility M3 PT-IP Subjective Start: 05/23/21 13:40 Freq: NEEDED Status: Active Protocol: Document 05/24/21 08:42 (Rec: 05/24/21 08:59 [id number]) Subjective Physical Therapy Visit Type Type Treatment Note Visit Start Time 08:30 Visit Stop Time 08:43 Total Visit Minutes 13 Number of SPORTS PHOTOGRAPHER Visits 0 Physical Therapy Visit Comments Patient Comments I think im in my grandcatalino's bad Therapy Pain Assessment Pain When Pain Assessed During Mobility Pain Present Pain Present Unable to Respond M4 PT-IP Mobility and Gait Start: 05/23/21 13:40 Freq: NEEDED Status: Active Protocol: Document 05/24/21 08:42 (Rec: 05/24/21 08:59 [id number]) PT-Bed Mobility Assessment Supine to Sit Supine to Sit Moderate Assistance,1 Person Assistance,Head of Bed Elevated,Bedrails Sit to Supine Sit to Supine Moderate Assistance,1 Person Assistance,Head of Bed Elevated,Bedrails Scooting Scooting to Edge of Bed Moderate Assistance Scooting Up and Down in Bed Moderate Assistance PT-Transfer Assessment Sit to and From Stand Sit to and from Stand Maximum Assistance,1 Person Assistance,Use of Upper Extremities Equipment Transfer Assistive Device Gait Belt Orthotic/Prosthetic Devices or Brace: No Transfers Transfer Destination Bed Transfer Technique Squat Pivot Transfer Ability Level of Assist Maximum Assistance Comments Mobility Comments pt was eating breakfast in bed upon PT arrival. She thought she is in grandson's bed and not aware she was admitted to hospital. She agreed to sit in chair to continue her breakfast. She initially used bed rails to sit [facility] to long sit then needed mod A to pivot to EOB. She was able to scoot towards EOB slightly better than yesterday. She then stood up 2 times with min A FWW but unable to reach upright position. She showed significant retropulsion and unable to take steps. She sat back down on EOB and I used squat pivot to transfer her to chair. Placed tray in front of her and call light placed within reach. Asked nursing to place chair alarm. Gait Assessment Comments Gait Comments unable Stair Climbing Assessment Comments Stair Climbing Comments unable PT-Balance Assessment Sitting Balance and Reactions Static Sitting Balance Ability Fair Dynamic Sitting Balance Ability Poor Standing Balance and Reactions Device Used unable to stand M5 PT-IP Objective Assessments Start: 05/23/21 13:40 Freq: NEEDED Status: Active Protocol: Document 05/23/21 14:33 (Rec: 05/23/21 14:57 [id number]) Orientation Orientation/Cognition Level of Alertness Confusional State Orientation Name Safety Awareness Decreased Safety Awareness Memory Description Short Term Impaired,Athletic Turf Worker Impaired Comments able to follow 1step simple command only able to recall her name only. Gross Range of Motion Upper Extremity ROM Assessment Within Functional Limits Lower Extremity ROM Assessment Right Impaired Strength Upper Extremity Strength Assessment Within Functional Limits Lower Extremity Strength Assessment Right Impaired Hip 3-/5 Knee 3-/5 Comments Strength Comments pain with WB on RLE M6 PT-IP Treatment Start: 05/23/21 13:40 Freq: NEEDED Status: Active Protocol: Document 05/23/21 14:33 HH (Rec: 05/23/21 14:57 [id number]) Physical Therapy Treatment Education Education Provided Precautions,Weight Bearing Status,Post-Op Packet,Safety M7 PT-IP Assessment and Plan Start: 05/23/21 13:40 Freq: NEEDED Status: Active Protocol: Document 05/24/21 08:42 (Rec: 05/24/21 08:59 [id number]) PT Summary Assessment and Plan Potential Rehabilitation Potential Fair Status of Condition at Evaluation Evolving Summary Impairments Pain,ROM,Strength,Balance, Cognition,Bed Mobility, Transfers,Gait,Activity Tolerance Assessment Summary Tabatha shows some progress today with improved strength. She was able to stand min to mod A with FWW but unable to reach upright position. However, she is not aware of her condition and place at the moment compared to her baseline (able to recognize her family). Pt also needed max A squat pivot to chair today which is far from her baseline as well. I recommend SNF at this point d/t her limited cognition and mobility . Goals Bed Mobility Goal Contact Guard Assistance Transfer Goal Contact Guard Assistance,Front Wheeled Walker Gait Goal Contact Guard Assistance,Front Wheel Walker Other Goals transfer to BSC/ W/c Days to Meet Goals 5 Frequency of Treatment Frequency Of Treatment Once a Day Treatment Plan Physical Therapy Treatment Plan Bed Mobility Training,Transfer Training,Gait Training, Therapeutic Exercise,Balance Retraining,Post Op Education, Discharge Planning,Hot or Cold Pack,Neuromuscular Re-ed, Manual Therapy Other Recommendations and Next Treatment transfer to BSC/ W/c if Focus possible Weight Bearing Status Weight Bearing Status Full Weight Bearing Recommendations To Nursing Amount of Assist Needed Mechanical Lift Discharge Recommendations PT Discharge Recommendations Home with 24/ Assist Available,SNF Rehab Other Discharge Recommendations depends on pt's progress. Pt currently needs thomas lift for all mobility/ transfer Transportation Needs at Discharge Wheelchair/Cabulance,Stretcher /Ambulance
[2021-05-24] MEDS: cefTRIAXone 1,000 MG in SODIUM CHLORIDE 0.9% 100 ML 200 ML IV (09:54)
[2021-05-24] MEDS: ENOXAPARIN 30 MG/0.3 ML SYRINGE SUBCUT (09:54)
[2021-05-24 11:15] VITALS: O2SAT 97
--- NOTE | 2021-05-24 13:13 | PC.NURSE ---
1200- Patient agitated and confused this morning, talking about things that did not make sense. Tried to stand her to ambulate and patient cannot walk. She was transferred to the bed with 2 RNs. Back to bed and visiting with friend. Resting comfortably. States that she had a bowel movement, will clean patient up now.
[2021-05-24] MEDS: QUETIAPINE 25 MG TABLET PO (18:00)
--- NOTE | 2021-05-24 18:45 | PC.NURSE ---
Pt AOx1. Needs to be cued frequently because she tries to get out of bed. She pulled her IV from the RFA. Per Dr. Garber, it is okay to stop IV abx. No IV needs to be inserted. Pt was given seroquel at 1800. Had a small bowel movement today. Bed in the low and call light within reach. VS stable.
[2021-05-24 19:11] VITALS: PULSE 83; RESP 16; O2SAT 97
--- NOTE | 2021-05-24 21:16 | PM.PN.1 ---
Subjective Subjective Interval history: Patient denies any acute complaints. She reports good PO intake. Exam Vital Signs (past 8 hours): - 05/24/21 19:11 Pulse Rate 83 Respiratory Rate 16 Pulse Oximetry 97 Oxygen Delivery Method Room Air Oxygen Flow Rate 0 Narrative Exam Narrative: Const Other: Patient is sitting in chair comfortably upon my entering the room, in no apparent acute distress. Eyes Other: No scleral icterus appreciated. Neck Other: No carotid bruits appreciated. Chest Other: Diminished breath sounds bilaterally with no adventitious breath sounds appreciated. Cardio Other: Regular rate and rhythm. S1 and S2 heart sounds auscultated with no extra heart sounds or murmurs appreciated. No peripheral edema noted. GI Other: Soft, non-distended, non-tender. Bowel sounds present. Extrem Other: Palpable dorsalis pedis pulses bilaterally. Objective Labs Result Diagrams: 05/21/21 17:42 05/22/21 05:51 [facility] Medical History Alzheimer's dementia Dementia High cholesterol Surgical History No significant past surgical history Social History household members: none Smoking Status: Current every day smoker alcohol intake: current Assessment & Plan Assessment & Plan narrative: Patient is Tabatha Mondragon an 81-year-old female who resides at [facility] ,with a medical history of Depression, Alzheimer's Dementia, Acid reflux, Hyperlipidemia and Decreased Mobility who fell in December and was seen by Dr. Sosa for spiral fracture of the right Tibia.? Patient arrived via BLS and initially reported that approximately 5 hours prior to arrival to the emergency department had a change in mental status.?Patient admitted for encephalopathy likely secondary to urinary tract infection resulting in ALEXANDRA. 1. Encephalopathy, acute, secondary to urinary tract infection, acute, resulting in ALEXANDRA, acute, present on admission -Does not meet SIRS/Sepsis criteria. -BUN of 24, creatinine 1.21, GFR 42.5:? Last known 12/23/2020 BUN 16, creatinine 0.76, GFR> 60. -urine culture pending -1 gram Rocephin in ED, ordered 2nd gram of Rocephin-then continue 1G Q24s. -Fluid rehydration NS @60cc/hr -Lactate, Lipase -WNL -POA verbalized that the patient did not want to complete blood cultures and only wanted fluid rehydration and IV antibiotics with minimal medical interventions/Comfort Care-as a DNR. 2. Spiral tib-fib fracture repair, 12/2020, chronic, present on admission -patient placed on fall precautions, immobility increases the risk of pyelonephritis/septicemia. 3. Alzheimer's Dementia, acute on chronic, present on admission -continue memantine.? Listed allergy to donepezil. 4. Hyperlipidemia, chronic, present on admission -continue rosuvastatin Time Spent With Patient Critical Care time: I spent a total of [] minutes of critical care time on this patient's care today; this time is exclusive of procedural time. Quality VTE Deep Vein Thrombosis/Pulmonary Embolism Present on Admission: No
[2021-05-25 08:00] VITALS: O2SAT 94
--- NOTE | 2021-05-25 09:10 | CM.DPNOTE ---
DCP Cont According to PT Abhishek's report 05.23.21; Patient appears to be below functional and cognitive baseline. Updated Aircraft Armament Mechanic Aarti at [facility] and she reiterated that patient could not be accommodated at home ([facility]) until she could be transferred with one person assist. Patient is mostly w/c bound at [facility] but there is not staff available to assist w/2 person Max transfers. Reviewed above w/friend/DPOA Gita and w/patient; patient quite confused and became somewhat irritated talking about DCP efforts. Explained to Gita that patient may require SNF stay if she requires thomas lift/ 2 person assist w/transfers. Gita appeared disappointed but understood; stated back to [facility] was first choice but gave this MANAGER TRAINEE permission to attempt SNF placement at [facility] Gave referral to admissions team at [facility]; received CB this morning and admissions team will begin [employer] authorization request Following closely for coordination of the safest plan available to patient at this time; as it appears she is functionally below baseline JW
[2021-05-25] MEDS: ENOXAPARIN 30 MG/0.3 ML SYRINGE SUBCUT (09:51)
[2021-05-25 10:00] VITALS: BP 161/90; PULSE 75; RESP 20; TEMP 36.3; O2SAT 95
[2021-05-25 10:32] VITALS: O2SAT 93
--- NOTE | 2021-05-25 14:29 | PM.PN.1 ---
Subjective Subjective Date Patient Seen: 05/25/21 Interval history: She is sleeping when I enter the room and does not really engage much but at the end of the visit says ?thank you doctor. ? A correction facility authorization from her insurance [employer] is pending. She completed the ceftriaxone 3 day course yesterday. Her power of motion picture camera lens technician wants her to go home but she is a complete assist/using a [place] now so that is not realistic. The urine culture actually did not grow anything. Her blood pressure is 159/66 and her vital signs are otherwise stable. Exam Vital Signs (past 8 hours): - 05/25/21 08:00 05/25/21 10:00 05/25/21 10:32 Temperature 97.3 F L Pulse Rate 75 Respiratory Rate 20 Blood Pressure 161/90 H Pulse Oximetry 94 95 93 Oxygen Delivery Method Room Air Oxygen Flow Rate 0 Narrative Exam Narrative: She is is sleeping, and is in no apparent distress. She just barely engages with me at the end of the visit. Heart is regular rate and rhythm without murmur Lungs are clear to auscultation bilaterally Extremities have no ankle edema Objective Labs Result Diagrams: 05/21/21 17:42 05/22/21 05:51 [facility] Medical History Alzheimer's dementia Dementia High cholesterol Surgical History No significant past surgical history Social History household members: none Smoking Status: Current every day smoker alcohol intake: current Assessment & Plan Assessment & Plan narrative: Patient is Tabatha Mondragon an 81-year-old female who resides at [facility] ,with a medical history of Depression, Alzheimer's Dementia, Acid reflux, Hyperlipidemia and Decreased Mobility who fell in December and was seen by Dr. Sosa for spiral fracture of the right Tibia.? Patient arrived via BLS and initially reported that approximately 5 hours prior to arrival to the emergency department had a change in mental status.?Patient admitted for encephalopathy likely secondary to urinary tract infection resulting in ALEXANDRA. 1. Encephalopathy, acute, that was assumed to be caused by a tract infection, acute, resulting in ALEXANDRA, acute, present on admission -Did not meet SIRS/Sepsis criteria. -BUN of 24, creatinine 1.21, GFR 42.5:? Last known 12/23/2020 BUN 16, creatinine 0.76, GFR> 60. -urine culture was actually negative -she received 3 days of IV Rocephin before it was stopped yesterday. -Fluid rehydration NS @60cc/hr -Lactate, Lipase -WNL -POA verbalized that the patient did not want to complete blood cultures and only wanted fluid rehydration and IV antibiotics with minimal medical interventions/Comfort Care-as a DNR. 2. Spiral tib-fib fracture repair, 12/2020, chronic, present on admission -patient placed on fall precautions, immobility increases the risk of pyelonephritis/septicemia. 3. Alzheimer's Dementia, acute on chronic, present on admission -continue memantine.? Listed allergy to donepezil. 4. Hyperlipidemia, chronic, present on admission -continue rosuvastatin Pending placement to correction facility once her insurance, [employer], authorize is it. Because of her inability to bear weight/transfer she is unable to go home. Time Spent With Patient Critical Care time: I spent a total of [] minutes of critical care time on this patient's care today; this time is exclusive of procedural time. Quality VTE Deep Vein Thrombosis/Pulmonary Embolism Present on Admission: No
--- NOTE | 2021-05-25 15:13 | PC.NURSE ---
Pt resting all day thus far. Refusing to move, refused PT stating that I'm sleeping all day Pt refusing meals as well. SpO2 94% RA Continues w/no IV access Uneventful day. Call light w/in reach, bed alarm on for pt safety. Continue w/plan of care.
--- NOTE | 2021-05-25 15:40 | PT-IP ANOTE ---
pt. refused PT. encouraged pt to do PT but refused and stated: I know you are trying to be nice but NO, I am not going to move.
--- NOTE | 2021-05-25 22:26 | PC.NURSE ---
Pt has been refusing all her care today, pt in bed appears to be comfortable, respirations around 16, Bed alarm in place.
[2021-05-25 23:34] VITALS: PULSE 75; RESP 14; O2SAT 93
--- NOTE | 2021-05-26 05:39 | PC.NURSE ---
Pt slept most of the night. pt was change, she was incontinent of urine. BA in place.
[2021-05-26 07:38] VITALS: O2SAT 93
[2021-05-26] MEDS: ENOXAPARIN 40 MG/0.4 ML SYRINGE SUBCUT (08:55)
[2021-05-26 09:00] VITALS: BP 132/83; PULSE 83; RESP 18; TEMP 36.7; O2SAT 93
--- NOTE | 2021-05-26 16:01 | PT.IPTN ---
Physical Therapy Treatment Note M2 PT-IP Current Condition Start: 05/23/21 13:40 Freq: NEEDED Status: Active Protocol: Document 05/23/21 14:33 HH (Rec: 05/23/21 14:57 HH [id number]) Physical Therapy Current Condition Current Condition Evaluation Date 05/23/21 Treatment Diagnosis UTI, generalized weakness, difficulty in mobility M3 PT-IP Subjective Start: 05/23/21 13:40 Freq: NEEDED Status: Active Protocol: Document 05/26/21 15:44 NESTOR (Rec: 05/26/21 16:01 LJ [id number]) Subjective Physical Therapy Visit Type Type Treatment Note Visit Start Time 15:11 Visit Stop Time 15:34 Total Visit Minutes 23 Number of PHYSICIAN Visits 1 Physical Therapy Visit Comments Patient Comments Willing to try to sit on side of bed and possibly stand Therapy Pain Assessment Pain When Pain Assessed During Mobility Pain Present Pain Present Pain Reported M4 PT-IP Mobility and Gait Start: 05/23/21 13:40 Freq: NEEDED Status: Active Protocol: Document 05/26/21 15:44 NESTOR (Rec: 05/26/21 16:01 LJ [id number]) PT-Bed Mobility Assessment Supine to Sit Supine to Sit Moderate Assistance,1 Person Assistance,Head of Bed Elevated,Bedrails Sit to Supine Sit to Supine Moderate Assistance,1 Person Assistance,Head of Bed Elevated,Bedrails Scooting Scooting to Edge of Bed Moderate Assistance Scooting Up and Down in Bed Moderate Assistance PT-Transfer Assessment Comments Mobility Comments With head of bed elevated pt required assist to move LEs over side of bed. ModA x 1 for supine>sit. ModA with use of leonard pad to scoot to edge of bed to position for standing. Pt demonstrated good sitting balance on bed. She attempted to stand but stated her right hip was too painful and she didn't trust it. Attempted to stand again but pt didn't put her RLE on the floor. Stated it was too painful. Sat on side of bed for several minuteswithout holding onto bed or using feet to balance. Pt required assist with LEs to lay back in bed. Cues for positioning herself straight up and down to prepare for scooting up in the bed. Pt able to perform bridge with LLE but needed assist with RLE . she was able to push with LLE while PHYSICIAN pulled leonard from head of bed. Pt was left with all needs within reach and nursing entered room as therapist left. Gait Assessment Comments Gait Comments unable Stair Climbing Assessment Comments Stair Climbing Comments unable M5 PT-IP Objective Assessments Start: 05/23/21 13:40 Freq: NEEDED Status: Active Protocol: Document 05/23/21 14:33 HH (Rec: 05/23/21 14:57 HH [id number]) Orientation Orientation/Cognition Level of Alertness Confusional State Orientation Name Safety Awareness Decreased Safety Awareness Memory Description Short Term Impaired,Snf Impaired Comments able to follow 1step simple command only able to recall her name only. Gross Range of Motion Upper Extremity ROM Assessment Within Functional Limits Lower Extremity ROM Assessment Right Impaired Strength Upper Extremity Strength Assessment Within Functional Limits Lower Extremity Strength Assessment Right Impaired Hip 3-/5 Knee 3-/5 Comments Strength Comments pain with WB on RLE M6 PT-IP Treatment Start: 05/23/21 13:40 Freq: NEEDED Status: Active Protocol: Document 05/26/21 15:44 LJ (Rec: 05/26/21 16:01 LJ [id number]) Physical Therapy Treatment Education Education Provided Safety M7 PT-IP Assessment and Plan Start: 05/23/21 13:40 Freq: NEEDED Status: Active Protocol: Document 05/26/21 15:44 LJ (Rec: 05/26/21 16:01 LJ [id number]) PT Summary Assessment and Plan Potential Rehabilitation Potential Fair Status of Condition at Evaluation Evolving Summary Impairments Pain,ROM,Strength,Balance, Cognition,Bed Mobility, Transfers,Gait,Activity Tolerance Assessment Summary Pt unable to stand or transfer today due to c/o pain in R hip. Improvement from yesterday as nursing reported she slept all day however decline since 05/24 treatment session. Pt will need / assist at home or placement in SNF to improve her strength, mobility, and level of functional independence to return to her home. Goals Bed Mobility Goal Contact Guard Assistance Transfer Goal Contact Guard Assistance,Front Wheeled Walker Gait Goal Contact Guard Assistance,Front Wheel Walker Other Goals transfer to BSC/ W/c Days to Meet Goals 5 Frequency of Treatment Frequency Of Treatment Once a Day Treatment Plan Physical Therapy Treatment Plan Bed Mobility Training,Transfer Training,Gait Training, Therapeutic Exercise,Balance Retraining,Post Op Education, Discharge Planning,Hot or Cold Pack,Neuromuscular Re-ed, Manual Therapy Other Recommendations and Next Treatment transfer to BSC/ W/c if Focus possible Weight Bearing Status Weight Bearing Status Full Weight Bearing Recommendations To Nursing Amount of Assist Needed 2 Person Assist Discharge Recommendations PT Discharge Recommendations Home with 24/7 Assist Available,SNF Rehab Other Discharge Recommendations depends on pt's progress. Pt currently needs thomas lift for all mobility/ transfer Transportation Needs at Discharge Wheelchair/Cabulance,Stretcher /Ambulance
--- NOTE | 2021-05-26 16:12 | PC.NURSE ---
Pt awake/cooperative today Lungs clear/diminished at bases SpO2 94% RA Watching tv most day, Able to sit on edge of bed w/PT Call light w/in reach, bed alarm on for pt safety Continue w/plan of care.
--- NOTE | 2021-05-26 18:57 | P.PN_ITS ---
Subjective Subjective Date Patient Seen: 05/26/21 Interval history: CONTINUE TO REPORT GENERALIZED WEAKNESS NO SIGNIFICANT ISSUES REPORTED BY NURSING OVERNIGHT Exam Vital Signs (past 8 hours): Oxygen Delivery Method Room Air Oxygen Flow Rate 0 Narrative Exam Narrative: NO ACUTE DISTRESS. PATIENT IS ALERT ORIENTED X3. VITAL SIGNS STABLE HEAD ATRAUMATIC NORMOCEPHALIC NECK : SUPPLE WITHOUT ADENOPATHY NO CAROTID BRUITS EYE: EOMI, PERRLA, NORMAL CONJUNCTIVA; NO JAUNDICE CHEST: REGULAR RATE. NO RUBS. PMI IS NON DISPLACED. PULMONARY: DECREASED BS OVER THE BASES. MILD BIBASILAR CRACKLES NOTED; NO INCREASED DULLNESS TO PERCUSSION ABDOMEN: SOFT. NONTENDER. NONDISTENDED. BOWEL SOUNDS ARE PRESENT IN ALL 4 QUADRANTS. NO MASS. EXTREMITIES: NO EDEMA.. NO CYANOSIS CLUBBING NOTED. NEURO: CRANIAL NERVES 2-12 GROSSLY INTACT. NO FOCAL NEUROLOGICAL DEFICIT NOTED. SKIN: NORMAL FOR ETHNICITY; NO ECCHYMOSIS. NO LESION. GOOD TURGOR.; NO RASHES . PSYCH : APPROPRIATE MOOD AND AFFECT. ALERT AWAKE O X2 Objective Labs Result Diagrams: 05/21/21 17:42 05/22/21 05:51 [facility] Medical History Alzheimer's dementia Dementia High cholesterol Surgical History No significant past surgical history Social History household members: none Smoking Status: Current every day smoker alcohol intake: current Assessment & Plan Assessment & Plan narrative: PROBLEM LIST METABOLIC ENCEPHALOPATHY. RESOLVED UTI. COMPLETED COURSE OF ANTIBIOTICS PHYSICAL DECONDITIONING / DEBILITY. MULTIFACTORIAL DEHYDRATION. RESOLVED PLAN SPOKE TO PATIENT AT LENGTH IN REGARD TO THE CASE TODAY PLAN TO DISCHARGE TO [facility] F[facility] ONCE A BED BECOMES AVAILABLE MAINTAIN STRICT ASPIRATION AND FALL PRECAUTIONS MONITOR SKIN CLOSELY FOR ANY SIGN OF BREAKDOWN WELL ORDER LABS IF INDICATED ONLY ASSISTANCE FROM CASE MANAGEMENT IN REGARD TO DISCHARGE IS GREATLY APPRECIATED ADDITIONAL MANAGEMENT PER CLINICAL COURSE Time Spent With Patient Critical Care time: I spent a total of [] minutes of critical care time on this patient's care today; this time is exclusive of procedural time. Quality VTE Deep Vein Thrombosis/Pulmonary Embolism Present on Admission: No
[2021-05-26 20:00] VITALS: BP 120/78; PULSE 87; RESP 16; TEMP 36.7; O2SAT 95
[2021-05-26] MEDS: MEMANTINE HCL 5 MG TABLET 10 MG PO (20:31)
--- NOTE | 2021-05-27 04:40 | PC.NURSE ---
Pt alert to self tonight, more calm with care, watching TV and reading a magazine. BA in place for safety.
[2021-05-27 08:50] VITALS: O2SAT 91
[2021-05-27] MEDS: ENOXAPARIN 40 MG/0.4 ML SYRINGE SUBCUT (09:32)
[2021-05-27] MEDS: MEMANTINE HCL 5 MG TABLET 10 MG PO ×2 (10:46→20:58)
--- NOTE | 2021-05-27 11:27 | CM.DANOTE ---
DCP/Assessment continued: Reviewed chart. Patient medically stable to d/c to SNF. Placed call to [facility] (per previous CM notes) they indicate that they are attempting authorization from [employer]. P: CM team following. Anticipate d/c to [facility] once authorization obtained. BORIS
--- NOTE | 2021-05-27 11:35 | CM.DPNOTE ---
Faxed Updated clinicals per Sheri and received fax confirm. Elsa Elkins CM Asst.
--- NOTE | 2021-05-27 12:31 | PT.IPTN ---
Physical Therapy Treatment Note M2 PT-IP Current Condition Start: 05/23/21 13:40 Freq: NEEDED Status: Active Protocol: Document 05/23/21 14:33 HH (Rec: 05/23/21 14:57 HH [id number]) Physical Therapy Current Condition Current Condition Evaluation Date 05/23/21 Treatment Diagnosis UTI, generalized weakness, difficulty in mobility M3 PT-IP Subjective Start: 05/23/21 13:40 Freq: NEEDED Status: Active Protocol: Document 05/27/21 12:31 AW (Rec: 05/27/21 12:45 AW [id number]) Subjective Physical Therapy Visit Type Type Treatment Note Visit Start Time 12:12 Visit Stop Time 12:31 Total Visit Minutes 19 Number of TAXI CAB DRIVER Visits 0 Physical Therapy Visit Comments Patient Comments Pt is more alert today and understands that she is in a hospital but can not say which one. Therapy Pain Assessment Pain When Pain Assessed During Mobility Pain Present Pain Present Pain Reported Location right LE Scale Used not quantified Pain Management Techniques Distraction,Re-positioning M4 PT-IP Mobility and Gait Start: 05/23/21 13:40 Freq: NEEDED Status: Active Protocol: Document 05/27/21 12:31 AW (Rec: 05/27/21 12:45 AW [id number]) PT-Bed Mobility Assessment Supine to Sit Supine to Sit Minimal Assistance,Moderate Assistance,1 Person Assistance Scooting Scooting to Edge of Bed Moderate Assistance PT-Transfer Assessment Sit to and From Stand Sit to and from Stand Maximum Assistance,2 Person Assistance,Use of Upper Extremities Equipment Transfer Assistive Device Gait Belt Orthotic/Prosthetic Devices or Brace: No Transfers Transfer Destination Chair Transfer Technique Squat Pivot Transfer Ability Level of Assist Maximum Assistance Comments Mobility Comments With HOB flat, pt was able to move her LE's toward R EOB. Min/mod A x 1 to right her trunk. Pt was then able to sit EOB with UE support but required mod assist to scoot forward. Max cues needed for sit to stand attempts x 4. Max A x 1 was required to stand but pt unable to extend her hips, exhibiting strong posterior lean in spite of max cues. PT then provided max assist for squat pivot transfer to bedside chair. Pt agreed to attempt standing again from the chair but was unable due to strong retro lean. Pt was left with call light, tray table in reach. Chair alarm on for safety. Gait Assessment Comments Gait Comments unable Stair Climbing Assessment Comments Stair Climbing Comments unable PT-Balance Assessment Sitting Balance and Reactions Static Sitting Balance Ability Fair Dynamic Sitting Balance Ability Poor Standing Balance and Reactions Device Used unable to stand M5 PT-IP Objective Assessments Start: 05/23/21 13:40 Freq: NEEDED Status: Active Protocol: Document 05/23/21 14:33 HH (Rec: 05/23/21 14:57 HH [id number]) Orientation Orientation/Cognition Level of Alertness Confusional State Orientation Name Safety Awareness Decreased Safety Awareness Memory Description Short Term Impaired,Snf Impaired Comments able to follow 1step simple command only able to recall her name only. Gross Range of Motion Upper Extremity ROM Assessment Within Functional Limits Lower Extremity ROM Assessment Right Impaired Strength Upper Extremity Strength Assessment Within Functional Limits Lower Extremity Strength Assessment Right Impaired Hip 3-/5 Knee 3-/5 Comments Strength Comments pain with WB on RLE M6 PT-IP Treatment Start: 05/23/21 13:40 Freq: NEEDED Status: Active Protocol: Document 05/27/21 12:31 AW (Rec: 05/27/21 12:45 AW [id number]) Physical Therapy Treatment Education Education Provided Safety M7 PT-IP Assessment and Plan Start: 05/23/21 13:40 Freq: NEEDED Status: Active Protocol: Document 05/27/21 12:31 AW (Rec: 05/27/21 12:45 AW [id number]) PT Summary Assessment and Plan Potential Rehabilitation Potential Fair Status of Condition at Evaluation Evolving Summary Impairments Pain,ROM,Strength,Balance, Cognition,Bed Mobility, Transfers,Gait,Activity Tolerance Progress Towards Goals Slow Progress due to Pain,Slow Progress - Other Assessment Summary Pt improving slowly with bed mobility this date but remains unable to stand with max A x 2. She will need 24/ assist at home/JESSICA or placement in SNF to improve her strength, mobility, and level of functional independence to return to her home. Goals Bed Mobility Goal Contact Guard Assistance Transfer Goal Contact Guard Assistance,Front Wheeled Walker Gait Goal Contact Guard Assistance,Front Wheel Walker Other Goals transfer to C/ W/c Days to Meet Goals 5 Frequency of Treatment Frequency Of Treatment Once a Day Treatment Plan Physical Therapy Treatment Plan Bed Mobility Training,Transfer Training,Gait Training, Therapeutic Exercise,Balance Retraining,Post Op Education, Discharge Planning,Hot or Cold Pack,Neuromuscular Re-ed, Manual Therapy Weight Bearing Status Weight Bearing Status Full Weight Bearing Recommendations To Nursing Amount of Assist Needed Mechanical Lift Discharge Recommendations PT Discharge Recommendations Home with 26/01 Assist Available,SNF Rehab Other Discharge Recommendations depends on pt's progress. Pt currently needs thomas lift for all mobility/ transfer Transportation Needs at Discharge Wheelchair/Cabulance,Stretcher /Ambulance
--- NOTE | 2021-05-27 18:42 | PM.PN.1 ---
Subjective Subjective Interval history: PATIENT WITH SIGNIFICANT DEMENTIA. REVIEW Exam Vital Signs (past 8 hours): Oxygen Delivery Method Room Air Oxygen Flow Rate 0 Narrative Exam Narrative: NO ACUTE DISTRESS. PATIENT IS ALERT ORIENTED X1 . SIGNIFICANT DEMENTIA. HEAD ATRAUMATIC NORMOCEPHALIC NECK : NO ADENOPATHY . NO CAROTID BRUITS EYE: EOMI, PERRLA, NORMAL CONJUNCTIVA; NO JAUNDICE CHEST: REGULAR RATE. NO RUBS. PMI IS NON DISPLACED. NORMAL S1-S2 PULMONARY: DECREASED BS OVER THE BASES. MILD BIBASILAR CRACKLES NOTED; NO INCREASED DULLNESS TO PERCUSSION ABDOMEN: SOFT. NONTENDER. NONDISTENDED. BOWEL SOUNDS ARE PRESENT IN ALL 4 QUADRANTS. NO MASS. EXTREMITIES: NO EDEMA.. NO CYANOSIS CLUBBING NOTED. NEURO: CRANIAL NERVES 2-12 GROSSLY INTACT. NO FOCAL NEUROLOGICAL DEFICIT NOTED. DEMENTIA. MSK: NORMAL RANGE OF MOTION FOR AGE. NO JOINT EFFUSION. SKIN: FAIR SKIN TURGOR. NO OPEN LESIONS : NORMAL EXTERNAL GENITALIA. PSYCH : DEMENTIA. NO AGITATION Objective Labs Result Diagrams: 05/21/21 17:42 05/22/21 05:51 [facility] Medical History Alzheimer's dementia Dementia High cholesterol Surgical History No significant past surgical history Social History household members: none Smoking Status: Current every day smoker alcohol intake: current Assessment & Plan Assessment & Plan narrative: PROBLEM LIST ?METABOLIC ENCEPHALOPATHY.? RESOLVED BASELINE DEMENTIA. NO ACUTE TREATMENT ?UTI.? COMPLETED COURSE OF ANTIBIOTICS ?PHYSICAL DECONDITIONING / DEBILITY. ? MULTIFACTORIAL ?DEHYDRATION.? RESOLVED ?PLAN CONTINUE CURRENT MANAGEMENT FOR NOW ?PLAN TO DISCHARGE TO [facility] ONCE A BED BECOMES AVAILABLE ?MAINTAIN STRICT ASPIRATION AND FALL PRECAUTIONS ?MONITOR SKIN CLOSELY FOR ANY SIGN OF BREAKDOWN WELL ?ORDER LABS IF INDICATED ONLY ?ASSISTANCE FROM? CASE MANAGEMENT IN REGARD TO DISCHARGE IS GREATLY APPRECIATED ?ADDITIONAL MANAGEMENT PER CLINICAL COURSE Time Spent With Patient Critical Care time: I spent a total of [] minutes of critical care time on this patient's care today; this time is exclusive of procedural time. Quality VTE Deep Vein Thrombosis/Pulmonary Embolism Present on Admission: No
[2021-05-27 21:00] VITALS: BP 128/51; PULSE 98; RESP 16; TEMP 37.3; O2SAT 94
[2021-05-27 23:00] VITALS: O2SAT 94
[2021-05-28 08:39] VITALS: BP 130/77; PULSE 80; RESP 14; TEMP 36.2; O2SAT 91
[2021-05-28 08:58] VITALS: O2SAT 93
[2021-05-28] MEDS: MEMANTINE HCL 5 MG TABLET 10 MG PO (09:37)
[2021-05-28] MEDS: ENOXAPARIN 40 MG/0.4 ML SYRINGE SUBCUT (09:38)
--- NOTE | 2021-05-28 09:43 | PM.DS.1 ---
History of Present Illness History of Present Illness Date Patient Seen: 05/28/21 Chief complaint: slurred speech Narrative: History of Present Illness Date Patient Seen:?05/21/21 Time Patient Seen:?21:06 Narrative: Patient is Tabatha Mondragon an 81-year-old female who resides at [facility] ,with a medical history of Depression, Alzheimer's Dementia, Acid reflux, Hyperlipidemia and Decreased Mobility who fell in December and was seen by Dr. Sosa for spiral fracture of the right Tibia.? Patient arrived via BLS and initially reported that approximately 5 hours prior to arrival here in the emergency department to have a change in mental status.? Unsure exactly what has happened is the patient is unable to provide any HPI or ROS.? The BLS crew advised that there was potentially some concern about a UTI or stroke. Patient uses a wheelchair at baseline but usually stands/walks a few feet for transfers from bed to chair.?Patients POA was at bedside in ED and advised that the patient does have a PLOST form which does indicate she is a DNR with comfort measures only.?POA advised ED that admission for IV fluids and antibiotics under comfort measures was the extent of requested care. I also confirmed this with POA upon admit. The POA verbalized to ED provider that they did not wish to perform blood cultures and limit healthcare measures to ensure adequate sleep. The patient was sleeping at the time of admit. I did not wake patient out of respect for her documented wishes. Patient's vitals were stable upon admit temp 97.6?, BP 122/62, HR 79, RR 17, O2 saturation 96% on room air.? T patient's WBC WNL with neutrophils 8900.? Patient's BUN, creatinine and GFR were compared to labs on 12/23/2020: BUN 24, creatinine 1.21, GFR 42.5.? 12/23/2020 BUN 16, creatinine 0.76, GFR>60.? Urinalysis is positive for many bacteria, troponin and lipase WNL.? Patient admitted for encephalopathy secondary to UTI with complicating ALEXANDRA comfort measures. Discharge Providers Provider Date of admission: 05/21/21 19:56 Discharge Date: 05/28/21 Consults: 05/21/21 20:53 Consult to Discharge Planning Routine Comment: 05/23/21 10:48 Consult to Physical Therapy Evaluate & Treat Comment: Physician Instructions: Evaluate and Treat Discharge provider: Sandip Ledesma, DO Summary Hospital Course Discharge Diagnosis: ?METABOLIC ENCEPHALOPATHY.? RESOLVED BASELINE DEMENTIA.? NO ACUTE TREATMENT ?UTI.? COMPLETED COURSE OF ANTIBIOTICS ?PHYSICAL DECONDITIONING / DEBILITY. ? MULTIFACTORIAL ?DEHYDRATION.? RESOLVED Hospital Course: PATIENT WITH SIGNIFICANT PHYSICAL DEBILITY ADMITTED WITH CHANGE IN MENTATION RELATED TO URINARY TRACT INFECTION. PATIENT HAS RECEIVED A COURSE OF ANTIBIOTICS FOR UTI. HOWEVER SHE CONTINUED TO SHOW SIGN OF PHYSICAL DECONDITIONING SHE WAS SEEN BY THE PHYSICAL THERAPY AND OCCUPATIONAL THERAPY TEAM AND RECOMMENDATION WAS FOR PLACEMENT TO [facility] [employer] ARE WORKING MANY DAYS ON PLACEMENT. SHE WAS HIGH EXCEPTED INTO ONE OF OUR LOCAL FACILITY AND HAS BEEN DISCHARGED FOR THIS FOR MANAGEMENT. SHE HAS BASELINE DEMENTIA WITHOUT PSYCHOSIS. NO SIGNIFICANT ADDITIONAL MANAGEMENT WILL BE DEFERRED TO OUTPATIENT PROVIDERS AT THIS TIME Status at Discharge Cognitive/behavioral status at discharge: at baseline, confused and calm Functional status at discharge: uses cane/walker Overall status at discharge: patient is progressing back to baseline Exam Vital Signs (past 8 hours): - 05/28/21 08:39 Temperature 97.2 F L Pulse Rate 80 Respiratory Rate 14 Blood Pressure 130/77 Pulse Oximetry 91 Oxygen Delivery Method Room Air Oxygen Flow Rate 0 Narrative Exam Narrative: NO ACUTE DISTRESS.? PATIENT IS ALERT ORIENTED X1? .? SIGNIFICANT DEMENTIA. HEAD ATRAUMATIC NORMOCEPHALIC NECK : NO? ADENOPATHY . NO CAROTID BRUITS EYE:? EOMI, PERRLA, NORMAL CONJUNCTIVA; NO JAUNDICE CHEST:? REGULAR RATE.? ? NO RUBS.? PMI IS NON DISPLACED. NORMAL S1-S2 PULMONARY:? DECREASED BS OVER THE BASES.? MILD BIBASILAR CRACKLES NOTED; NO INCREASED DULLNESS TO PERCUSSION ABDOMEN:? SOFT.? NONTENDER.? NONDISTENDED.? BOWEL SOUNDS ARE PRESENT IN ALL 4 QUADRANTS.? NO MASS. EXTREMITIES: NO EDEMA..? NO CYANOSIS CLUBBING NOTED. NEURO:? CRANIAL NERVES 2-12 GROSSLY INTACT. NO FOCAL NEUROLOGICAL DEFICIT NOTED.? DEMENTIA. MSK:? NORMAL RANGE OF MOTION FOR AGE.? NO JOINT EFFUSION. SKIN: ? FAIR SKIN TURGOR.? NO OPEN LESIONS :? NORMAL EXTERNAL GENITALIA. PSYCH :? ? DEMENTIA. ? ? NO AGITATION Objective Labs Result Diagrams: 05/21/21 17:42 05/22/21 05:51 [facility] Medical History Alzheimer's dementia Dementia High cholesterol Surgical History No significant past surgical history Social History household members: none Smoking Status: Current every day smoker alcohol intake: current Discharge Plan Discharge Plan Patient Disposition: SNF Discharge orders & Medications Prescriptions: New quetiapine 25 mg Tablet 25 mg PO BEDTIME PRN (Reason: Agitation) Qty: 20 0RF Continued multivitamin [Multiple Vitamins] 1 EACH tablet 1 tab PO QDAY Qty: 0 0RF citalopram 20 MG tablet 20 mg PO QDAY Qty: 0 0RF cyanocobalamin (vitamin B-12) 1,000 MCG tablet extended release 1,000 mcg PO QDAY Qty: 0 0RF folic acid 1 MG tablet 400 mcg PO QDAY Qty: 0 0RF memantine 10 MG tablet 10 mg PO BID Qty: 0 0RF alum-mag hydroxide-simeth [Maalox Maximum Strength] 355 ML suspension 30 ml PO PRN PRN (Reason: Indigestion) Qty: 0 0RF Antacid (calcium carbonate) 500 mg tablet 500 tab PO BID 0RF cholecalciferol (vitamin D3) 25 mcg (1,000 unit) Tablet 25 mcg PO DAILY 0RF rosuvastatin 10 mg Tablet 5 mg PO DAILY 0RF aspirin 81 mg Tablet 81 mg PO DAILY 0RF magnesium hydroxide [Milk of Magnesia] 400 mg/5 mL Suspension 400 mg PO DAILY 0RF Discontinued hydrocodone-acetaminophen 5-325 mg Tablet 1 tab PO Q4HR PRN (Reason: Pain, Moderate (4-6)) Qty: 10 0RF Diet/Activity/Treatments Diet: Diet as Tolerated Liquid consistency: Normal/Thin Food texture: Soft [facility] Reason for rehabilitation: Recovery r/t decondition Rehab type: Physical therapy and Occupational therapy Quality VTE Deep Vein Thrombosis/Pulmonary Embolism Present on Admission: No
[2021-05-28 11:12] LABS: COVID19 -Nasal RAPID Negative (Negative)
--- NOTE | 2021-05-28 11:26 | PC.NURSE ---
Discharge Note Patient A&O to baseline, VSS, no complaints of pain/discomfort. Report given to facility staff, all questions/concerns addressed. COVID test negative. Patient assisted into wheelchair by staff. Discharge packet and belongings given to transportation team. No PIV.
--- NOTE | 2021-05-28 12:22 | CM.DPC ---
DCP/continued: Reviewed chart. Received phone call from [facility] indicating that they can accept today. Transport scheduled for approximately 11:30AM. RN given number to call report. SMITHA/Elsa to assist with finalizing orders. Placed call to LEONILA/Gita Salcido she is aware and agreeable to plan. No additional needs identified. P: [facility] today. BORIS
== END 2021-05-28 11:15 | DRG 689 ==
LOC: ED 19:44 → AC 20:01
PROVIDERS: Hospitalist; Admitting Provider Nurse Practitioner Family; Emergency Provider Emergency Medicine; Referring Provider Emergency Medicine; Visit Provider Nurse Practitioner Family
DX: N39.0 Urinary tract infection, site not specified (principal); G93.41 Metabolic encephalopathy; N17.9 Acute kidney failure, unspecified; E86.0 Dehydration; F17.210 Nicotine dependence, cigarettes, uncomplicated; E78.5 Hyperlipidemia, unspecified; G30.9 Alzheimer's disease, unspecified; F02.80 Dementia in other diseases classified elsewhere, unspecified severity, without behavioral disturbance, psychotic disturbance, mood disturbance, and anxiety; F32.A Depression, unspecified; I45.10 Unspecified right bundle-branch block; Z66 Do not resuscitate; Z20.822 Contact with and (suspected) exposure to COVID-19
CPT/HCPCS: 36415; 51701; 70450; 80048; 80053; 80320; 81001; 82550; 83036; 83605; 83690; 83735; 84484; 85025; 85610; 85730; 87086; 87635; 93005; 94760; 94762; 96361; 96365; 97162; 97530; 99285; C9803; J0696; J1650